=== PATIENT | female | born 1945 | race Caucasian/White ===

== ENCOUNTER → 2016-10-20 | Outpatient (CLI) | payer OTHER | LOC: FIMAGING 10:59 | PROVIDERS: ATTEND Internal Medicine | DX: Z12.31 Encounter for screening mammogram for malignant neoplasm of breast (principal) | CPT/HCPCS: G0202 ==

== ENCOUNTER 2017-06-03 05:44 | Inpatient (IN) | payer OTHER ==
[~2017-06-03 05:44] MED LIST: ROPIVACAINE 0.2% 80 MG, EPINEPHrine 0.2 MG, KETOROLAC TROMETHAMINE 30 MG in SYRINGE 0 ML IU ONE
[2017-06-03] MEDS ORDERED: TRANEXAMIC ACID 1,000 MG in NS (SYRINGE) 50 ML IV ONE (06:00)
[2017-06-03] MEDS ORDERED: BUPI/epINEPH/KETOROLAC IU ONE (06:00)
[2017-06-03] MEDS ORDERED: POVIDONE-IODINE 20 ML in SODIUM CL IRRIG SOLUTION 500 ML IRR ONE (06:00)
[2017-06-03] MEDS ORDERED: VANCOMYCIN PHARMACY TO DOSE MISC ONE (06:00)
[2017-06-03] MEDS ORDERED: VANCOMYCIN 1.25 GM in NS 250 ML IV ONE (06:00)
[2017-06-03] MEDS ORDERED: DEXAMETHASONE 4 MG/ML VIAL IVP ONE (06:01)
[2017-06-03] MEDS ORDERED: GABAPENTIN 300 MG CAP PO ONE (06:01)
[2017-06-03] MEDS ORDERED: FAMOTIDINE 20 MG TAB PO ONE (06:01)
[2017-06-03] MEDS ORDERED: ACETAMINOPHEN 325 MG TAB PO ONE (06:01)
[2017-06-03] MEDS ORDERED: LIDOCAINE 1% 2 ML INJ ID PRN (06:02)
[2017-06-03] MEDS ORDERED: LR 1,000 ML IV ONE (06:02)
[2017-06-03] MEDS ORDERED: ceFAZolin 1 GM/5 ML SYR ONE (06:32)
[2017-06-03] MEDS ORDERED: VANCOMYCIN 1 GM VIAL ONE (06:34)
--- NOTE | 2017-06-03 06:57 | PDANEPAE ---
ANE Past Medical History - Cardiovascular History Hx Hypertension: Yes Hx Arrhythmias: No Hx Chest Pain: No Hx Coronary Artery / Peripheral Vascular Disease: No Hx CHF / Valvular Disease: No Hx Palpitations: No - Pulmonary History Hx COPD: No Hx Asthma/Reactive Airway Disease: No Hx Recent Upper Respiratory Infection: No Hx Oxygen in Use at Home: No Hx Sleep Apnea: No Sleep Apnea Screening Result - Last Documented: Negative - Neurologic History Hx Cerebrovascular Accident: No Hx Seizures: No Hx Dementia: No - Endocrine History Hx Diabetes: No Endocrine History Comment: HYPOTHYROID - Renal History Hx Renal Disorders: No - Liver History Hx Hepatic Disorders: No - Neurological & Psychiatric Hx Hx Neurological and Psychiatric Disorders: No - Cancer History Hx Cancer: Yes Cancer History Comment: SKIN - Congenital Disorder History Hx Congenital Disorders: No - GI History Hx Gastrointestinal Disorders: Yes Gastrointestinal History Comment: CONSTIPATION. INFREQUENT ?IBS - Other Health History Other Health History: OSTEOARTHRITIS - Chronic Pain History Chronic Pain: Yes (KNEES) - Surgical History Prior Surgeries: RT TOTAL KNEE 08/04/2015. RT TOTAL HIP. TONSILLECTOMY. REMVL LIPOMA. BREAST BX ANE Review of Systems Review of Systems: - Exercise capacity METS (RN): 4 METS ANE Patient History - Allergies Allergies/Adverse Reactions: codeine Allergy (Unknown, Verified 01/23/15 15:32) VOMITTING amoxicillin Allergy (Verified 01/23/15 15:32) FACIAL SWELLING, BODY RASH Penicillins Allergy (Verified 05/01/17 13:32) Swelling/neck,face,throat - Home Medications Home Medications: Hydrochlorothiazide [HCTZ (*)] 25 mg PO DAILY 07/13/15 [Last Taken 06/02/17 08: 00] Lisinopril [Zestril 10 mg (*)] 10 mg PO DAILY 07/13/15 [Last Taken 06/02/17 22: 00] Ascorbic Acid [Vitamin C 500 mg (*)] 500 mg PO DAILY 05/01/17 [Last Taken ] Aspirin [Aspirin 81mg (*)] 81 mg PO DAILY 05/01/17 [Last Taken 05/27/17] Cholecalciferol Vit D3 [Vitamin D3 2000 units tab (OTC)] 2,000 units PO DAILY [Last Taken 05/27/17] Fluticasone Nasal [Flonase Nasal [place] (RX)] 1 sprays NASAL DAILY PRN 05/01/17 [ Last Taken 05/28/17] Herbals/Supplements -Info Only 1 ea PO DAILY 05/01/17 [Last Taken 05/27/17] Levothyroxine [Synthroid 75 mcg (*)] 75 mcg PO MOTUWETHFRSA@05/01/17 [Last Taken 06/03/17 04:00] Levothyroxine [Synthroid 75 mcg (*)] 112.5 mcg PO FARMER@05/01/17 [Last Taken 08:00] Multivitamins [Multivitamin (*)] 1 each PO DAILY 05/01/17 [Last Taken 05/27/17] [place]-3 Fatty Acids [Fish Oil 1000 mg (*)] 1,000 mg PO DAILY 05/01/17 [Last Taken 05/27/17] - Smoking Hx Smoking Status: Never smoked ANE Labs/Vital Signs - Vital Signs Height: 157.48 cm Weight: 86.183 kg ANE Physical Exam - Airway Neck exam: FROM Mallampati Score: Class 3 - Pulmonary Pulmonary: no respiratory distress - Cardiovascular Cardiovascular: regular rate and rhythym - ASA Status ASA Status: III ANE Anesthesia Plan Anesthesia Plan: spinal Regional Anesthesia: adductor canal FNB
[2017-06-03] MEDS ORDERED: MIDAZOLAM 2 MG/2 ML VIAL ONE (07:00)
[2017-06-03] MEDS ORDERED: DEXAMETHASONE 4 MG/ML VIAL ONE ×2 (07:01)
[2017-06-03] MEDS ORDERED: LIDOCAINE 2% 100 MG/5 ML SYR ONE (07:01)
[2017-06-03] MEDS ORDERED: PROPOFOL/EMULSION 500 MG/50 ML BOTTLE IV ONE (07:01)
[2017-06-03] MEDS ORDERED: METOCLOPRAMIDE 10 MG/2 ML VIAL ONE (07:01)
[2017-06-03] MEDS ORDERED: fentaNYL 100 MCG/2 ML INJ ONE (07:01)
--- NOTE | 2017-06-03 07:01 | PDHPUP ---
History & Physical Update H&P update statement: This history and physical update is based on an assessment of the patient which was completed after admission or registration (within 24 hours), but prior to the surgery/procedure. H&P update: H&P reviewed & patient examined
[2017-06-03] MEDS ORDERED: TRANEXAMIC ACID 3,000 MG/50 ML BAG IRR ONE (07:28)
[2017-06-03] MEDS ORDERED: BUPIVACAINE/EPI 0.5% 30 ML SDV ONE (08:19)
--- NOTE | 2017-06-03 09:08 | POSTOPPROG ---
Post Op Note Date of Operation: 06/03/17 Surgeon: Alexandre Rachel Support Services Manager: Christopher/Shanna Anesthesiologist: Dr. Mello Greenberg Post-op Diagnosis: Left knee severe degenerative arthritis Procedure: Left total knee arthroplasty Inf/Abcess present in the surg proc area at time of surgery?: No EBL: 50-100 (Adductor canal block in PACU)
[2017-06-03] MEDS ORDERED: FLUTICASONE NASAL 120 SPRAYS/16 GM MDI EACHNARE PRN (09:21)
[2017-06-03] MEDS ORDERED: CYCLOBENZAPRINE 10 MG TAB PO PRN (09:22)
[2017-06-03] MEDS ORDERED: DIPHENOXYLATE/ATROPINE LOMOTIL 1 TAB PO PRN (09:22)
[2017-06-03] MEDS ORDERED: NS 500 ML IV PRN (09:22)
[2017-06-03] MEDS ORDERED: PROMETHAZINE HCL 25 MG/ML INJ IVP PRN (09:22)
[2017-06-03] MEDS ORDERED: METOCLOPRAMIDE 10 MG/2 ML VIAL IVP PRN (09:22)
[2017-06-03] MEDS ORDERED: PROMETHAZINE HCL 25 MG SUPPR PR PRN (09:22)
[2017-06-03] MEDS ORDERED: KETOROLAC 30 MG/1 ML SDV IVP PRN (09:22)
[2017-06-03] MEDS ORDERED: TEMAZEPAM 15 MG CAP PO PRN (09:22)
[2017-06-03] MEDS ORDERED: ONDANSETRON DISINTEGRATING 4 MG TAB PO PRN (09:22)
[2017-06-03] MEDS ORDERED: MAGNESIUM HYDROXIDE 30 ML UDCUP PO PRN (09:22)
[2017-06-03] MEDS ORDERED: BISACODYL 10 MG SUPP PR PRN (09:22)
[2017-06-03] MEDS ORDERED: ONDANSETRON 4 MG/2 ML VIAL IVP PRN ×2 (09:22→09:42)
[2017-06-03] MEDS ORDERED: diphenhydrAMINE 25 MG CAP PO PRN (09:22)
[2017-06-03] MEDS ORDERED: LACTULOSE 20 GM/30 ML UDCUP PO PRN (09:22)
[2017-06-03] MEDS ORDERED: POLYETHYLENE GLYCOL 3350 17 GM PKT PO PRN (09:22)
[2017-06-03] MEDS ORDERED: HYDROCODONE/APAP 5/325 TAB PO PRN (09:24)
[2017-06-03] MEDS ORDERED: LR 1,000 ML IV SCH (09:30)
[2017-06-03] MEDS ORDERED: ALBUTEROL 3 ML DEYVIAL IH PRN (09:42)
[2017-06-03] MEDS ORDERED: NALOXONE HCL 0.4 MG/ML INJ IVP PRN (09:42)
[2017-06-03] MEDS ORDERED: fentaNYL 100 MCG/2 ML INJ IVP PRN (09:42)
--- NOTE | 2017-06-03 09:43 | POSTANESTH ---
Post Anesthetic Evaluation Cardiovascular Status: Similar to Pre-Op Cond Respiratory Status: Similar to Pre-op Cond. Level of Consciousness/Mental Status: Alert and Oriented Pain Control: Adequate, Prn Tx Ordered Nausea/Vomiting Control: Adequate, Prn Tx Ordered (adductor canal cath placed in rr. wiii re dose in am)
--- NOTE | 2017-06-03 09:54 | GOP ---
[f rep st] OPERATIVE REPORT DATE OF OPERATION: 06/03/2017 SURGEON: Alexandre Rachel MD PRINT TRAFFIC MANAGER: 1. Nitin White, PAC. 2. Gonzalo Otero [facility]. ANESTHESIA: A combination of Marcaine spinal, IV sedation, and adductor canal block. ANESTHESIOLOGIST: Mello Greenberg MD. PREOPERATIVE DIAGNOSIS: Left knee severe degenerative arthritis. POSTOPERATIVE DIAGNOSIS: Left knee severe degenerative arthritis. PROCEDURE PERFORMED: Left total knee arthroplasty, cemented, Amador and Nephew Journey II, posterior stabilized. FINDINGS: ESTIMATED BLOOD LOSS: Following deflation of the tourniquet was about 100 cc. The sponge and needle count were correct on 2 occasions. She was awakened from anesthesia, [facility], and taken to PACU in satisfacto ry condition. There were no recognized intraoperative complications. In the PACU, for additional po stoperative pain control, Dr. Greenberg performed an adductor canal block. Jose Juan White and Gonzalo Otero acted as surgical assistants. Their assistance was a medical necess ity for safe completion of the procedure. DESCRIPTION OF PROCEDURE: The patient was given preoperative IV vancomycin within 60 minutes of surg michaela. She also received IV tranexamic acid at a dose of 1000 mg. She was placed on the operating arianne m table, and given spinal anesthesia with Marcaine by Dr. Greenberg. She was then placed supine and g iven IV sedation. A Nielsen catheter was not used. She wore a MIKAYLA stocking and SCD on the nonoperativ e leg. A bolster was placed under her left hip to prevent excessive external rotation of the leg. H er left lower extremity was prepped with ChloraPrep from the upper thigh tourniquet to the tips of th e toes. It was draped free using sterile sheets, stockinette, and Ioban plastic adhesive drape. The lower leg was wrapped with compressive Coban. The leg was exsanguinated with elevation and a 6-inch compressive wrap, and the pneumatic tourniquet was inflated to 300 mmHg. The World Health Organization time-out was performed to verify the correct patient identity and the c orrect surgical side and site. The Payette time-out was also performed. The AR [employer] leg holding device was sterilely attached to the operating room table and used throughout the procedure to help position the knee. A straight midline incision made centered on the patella. Subcutaneous tissues were sharply divided, and hemostasis was obtained using electrocautery. A media l subcutaneous flap was developed, and the capsule and synovium were opened in a medial parapatellar fashion. Extensive degenerative changes were present in the medial compartment and in the patellofem oral joint. Her medial capsule and periosteum were elevated off the rim of the medial tibial plateau all the way around to the posteromedial corner. Her medial collateral ligament was released enough to balance the medial side of the knee and adjust for the varus deformity. In order to improve exposure, her patella was prepared first. The original thickness of the patella was measured. Peripheral osteophytes removed. I cut a flat surface on the back of the patella. She was sized for a 35 mm round resurfacing component. I removed enough bone from the patella, such leeanne t the remaining bone plus the thickness of the patellar component recreated the original thickness of the patella. The composite patellar thickness was 21 mm. The intramedullary alignment guide system was used to set up the distal femoral cut. The distal femu r was cut in 6 degrees of valgus. Because of a 5-degree to 10-degree preoperative flexion contractur e, I made a +2 mm cut on the distal femur. The sizing jig was used to determine proper femoral sizin g. I shifted the jig anteriorly 2 mm in order to accommodate a size 3 femoral component without notc prince the anterior cortex. The 5-in-1 cutting block was applied, and the anterior and posterior condy lar cuts and chamfer cuts were made. The final jig was used to remove the central portion of the dis winnie femur to accommodate the posterior stabilized femoral component. I was careful to determine prop er rotation by referencing off Whitesides line and other bony landmarks. Each cut was checked for ac curacy before and after it was made. The femur was sized for a size 3 posterior stabilized component . Next, the tibia was prepared. The proximal tibial cut was made using the extramedullary alignment gu brent system. The cut was made in a few degrees of posterior slope. I was careful to achieve proper v arus/valgus alignment and proper rotation. The posterior compartment was cleared of meniscal remnant s. Osteophytes were removed from the back of her femoral condyles. I checked the flexion extension gaps, and they were equal, balanced, and rectangular. The tibia was sized for a size 3 component. W ith the trial components in place, I selected a 9 mm polyethylene posterior stabilized tibial insert. The knee came to full extension and flexed to 120 degrees. There was no overstuffing in flexion. Her collateral ligaments were stable and balanced in 90 degrees of flexion and full extension. The t rial patellar button was applied, and patellar tracking was excellent without any digital pressure. 40 mL of the joint anesthetic cocktail were injected into the posterior capsule, the periarticular st ructures, the quadriceps muscle and tendon areas, and the subcutaneous tissues along the skin edges. The surfaces were prepared for cementing. They were carefully cleaned with the pulsating lavage and thoroughly dried. The CarboJet device was used to blow dry the cancellous surfaces. A double batch of high-viscosity methylmethacrylate cement with 2 g of powdered vancomycin added was mixed. While i t was still in a doughy state, all 3 components were cemented in place. Excess cement was removed be fore it hardened. The 9 mm tibial trial insert was re-tried and was the proper thickness. The actual component was ins erted and locked into place. The knee was thoroughly irrigated 1 final time with a dilute Betadine s olution. The tourniquet was deflated, and the total tourniquet time was 47 minutes. The vastus medialis portion of the extensor mechanism was repaired with several interrupted figure-of -eight #2 FiberWire sutures. The capsule and synovium were closed first with multiple interrupted fi [id number] PDS sutures, followed by a running #2 barbed Ethicon Stratafix PDO suture. Subcutane ous tissues were closed with a running 0 barbed Ethicon Stratafix Monoderm suture. The skin was clos ed with running 3-0 barbed Ethicon Stratafix Monoderm subcuticular suture. The skin was sealed with half-inch Steri-Strips. The wound was covered with a large Mepilex waterproof dressing and a 6-inch compressive wrap. A long-leg MIKAYLA stocking and SCD were applied, followed by the cooling device. The Mepilex sacral dressing was applied. I used a size 3 cemented Amador and Nephew Oxinium posterior stabilized femoral component, a size 3 ce mented tibial base plate, a 9 mm posterior stabilized tibial insert, and a 35 mm cemented round all-p olyethylene resurfacing patellar component. /[id number]/MODL
[2017-06-03] MEDS ORDERED: ONDANSETRON 4 MG/2 ML VIAL ONE (10:00)
[2017-06-03] MEDS: ACETAMINOPHEN 325 MG TAB PO SCH ×3 (14:09→23:13)
[2017-06-03] MEDS: TRANEXAMIC ACID 650 MG TAB PO SCH ×2 (15:10→21:20)
[2017-06-03] MEDS: SENNOSIDES/DOCUSATE SODIUM TAB PO SCH (21:21)
[2017-06-03] MEDS: FAMOTIDINE 20 MG TAB PO SCH (21:21)
[2017-06-03] MEDS: ASPIRIN 325 MG TAB PO SCH (21:37)
[2017-06-04] MEDS: traMADol 50 MG TAB PO PRN ×3 (03:07→21:33)
[2017-06-04] MEDS ORDERED: VANCOMYCIN 1.5 GM in NS 250 ML IV ONE (06:30)
--- NOTE | 2017-06-04 07:29 | SOAPPROG ---
SOAP Progress Note Assessment/Plan: Assessment: Awake and alert. Afebrile. Vital signs stable. Mild pain. She has been walking in her room. H&H are good. Postop films look good. Plan: Continue physical therapy today. Discharge tomorrow. 06/04/17 07:28 Objective: Vital Signs Temp Pulse Resp BP Pulse Ox 36.2 C 66 16 134/69 H 95 06/04/17 03:03 06/04/17 03:03 06/04/17 03:03 06/04/17 03:03 06/04/17 03:03 Laboratory Results 06/04/17 05:00 06/03/17 06/04/17 06/05/17 05:59 05:59 05:59 Intake Total 2820 Output Total 500 Balance 2320 ICD10 Worksheet Patient Problems: Problems Problem Status Onset Osteoarthritis of left knee Acute Osteoarthritis of right knee Acute Primary osteoarthritis of right hip Acute
[2017-06-04] MEDS: HYDROCHLOROTHIAZIDE 25 MG TAB PO SCH (08:43)
[2017-06-04] MEDS: SENNOSIDES/DOCUSATE SODIUM TAB PO SCH ×2 (08:43→21:33)
--- NOTE | 2017-06-04 08:43 | SOAPPROG ---
SOAP Progress Note Assessment/Plan: Assessment:Good pain management. Plan:Bupivicaine 17 ml 0.5 % with epi given through Adductor Canal catheter without complication. - Aspiration/ - Test dose. Pulse ox 96-98 % with no change in heart rate. 06/04/17 08:41 Subjective: pt doing well. Objective: Vital Signs Temp Pulse Resp BP Pulse Ox 36.6 C 66 16 124/67 H 95 06/04/17 07:57 06/04/17 07:57 06/04/17 07:57 06/04/17 07:57 06/04/17 07:57 Laboratory Results 06/04/17 05:00 06/03/17 06/04/17 06/05/17 05:59 05:59 05:59 Intake Total 2820 Output Total 500 Balance 2320 ICD10 Worksheet Patient Problems: Problems Problem Status Onset Osteoarthritis of left knee Acute Osteoarthritis of right knee Acute Primary osteoarthritis of right hip Acute
[2017-06-04] MEDS: ASPIRIN 325 MG TAB PO SCH (08:44)
[2017-06-04] MEDS: LEVOTHYROXINE 75 MCG TAB PO SCH (08:45)
[2017-06-04] MEDS: FAMOTIDINE 20 MG TAB PO SCH ×2 (08:45→21:33)
[2017-06-04] MEDS: LISINOPRIL 10 MG TAB PO SCH (08:45)
[2017-06-04] MEDS: TRANEXAMIC ACID 650 MG TAB PO SCH (08:46)
[2017-06-04] MEDS: ACETAMINOPHEN 325 MG TAB PO SCH ×4 (08:47→23:44)
--- NOTE | 2017-06-04 09:58 | ASMTCMCOM ---
CM Note CM Note Notes: Chart reviewed for discharge planning purposes. Patient address and phone number confirmed. [facility] PT for needs post discharge until she is seen in follow up with ortho. Patient requests PT Naomie Chun from [facility]. Likely to dc tomorrow. Plan: Home with [facility] Date Signed: 06/04/2017 09:57 AM Electronically Signed By:Joy Vee RN
[2017-06-05] MEDS: ACETAMINOPHEN 325 MG TAB PO SCH ×2 (06:17→11:56)
[2017-06-05] MEDS: LEVOTHYROXINE 75 MCG TAB PO SCH (06:17)
[2017-06-05] MEDS: traMADol 50 MG TAB PO PRN ×2 (06:45→14:00)
--- NOTE | 2017-06-05 07:18 | SOAPPROG ---
SOAP Progress Note Assessment/Plan: Assessment: Awake and alert. Afebrile. Vital signs stable. Mild pain. She has been walking in her room. H&H are good. Postop films look good. Plan: Continue physical therapy today. Discharge tomorrow. 06/04/17 07:28 06/05/17 07:17 Moderate pain today. Good progress with physical therapy. No new problems. Plan: Discharge today Objective: Vital Signs Temp Pulse Resp BP Pulse Ox 36.6 C 70 16 146/70 H 93 06/05/17 00:00 06/05/17 00:00 06/05/17 00:00 06/05/17 00:00 06/05/17 00:00 Laboratory Results 06/05/17 05:07 06/04/17 06/05/17 06/06/17 05:59 05:59 05:59 Intake Total 2820 550 Output Total 500 550 600 Balance 2320 0 -600 ICD10 Worksheet Patient Problems: Problems Problem Status Onset Osteoarthritis of left knee Acute Osteoarthritis of right knee Acute Primary osteoarthritis of right hip Acute
--- NOTE | 2017-06-05 08:03 | GDS ---
[f rep st] DISCHARGE SUMMARY ADMISSION DIAGNOSIS: Left knee severe arthritis. DISCHARGE DIAGNOSIS: Left knee severe arthritis. OPERATION PERFORMED: June 03, 2017, a left total knee arthroplasty. POSTOPERATIVE COMPLICATIONS: None. CONDITION ON DISCHARGE: Improved. DESCRIPTION OF HOSPITAL COURSE: The patient was admitted to the hospital on the morning of surgery. Her admission CBC, electrolytes, BUN, and creatinine were all normal. The same day, under a combina tion of Marcaine spinal, IV sedation, and adductor canal block, she underwent a left total knee arthr oplasty. Postoperatively, she was treated with multimodal DVT prophylaxis, including aspirin. On e first postoperative day, her hemoglobin and hematocrit were 10.7 and 30.5. She was seen by Physica l Therapy and made good progress with ambulation and stairs. On the morning of the first postoperati ve day, Dr. Greenberg gave her a second dose of Marcaine through her adductor canal catheter, and then the catheter was removed. By the time of discharge, she was afebrile, and she was independent walki ng with a walker. DISPOSITION: She is discharged to her home. Her daughter will be staying with her and caring for he r. Continue aspirin 325 mg p.o. daily for 21 days. Continue Celebrex 200 mg daily for 21 days. She has prescription for tramadol for pain control. She will have home physical therapy. I will see kishan r back in the office on June 18, 2017. If there any problems, she is to call me at the office. /[id number]/MODL
--- NOTE | 2017-06-05 08:33 | PDIAF ---
- Diagnosis Diagnosis: L knee OA Code Status: Full Code - Medication Management Discharge Medications: Medications to Continue on Transfer Hydrochlorothiazide [HCTZ (*)] 25 mg PO DAILY 07/13/15 [Last Taken 06/02/17 08: 00] Lisinopril [Zestril 10 mg (*)] 10 mg PO DAILY 07/13/15 [Last Taken 06/02/17 22: 00] Ascorbic Acid [Vitamin C 500 mg (*)] 500 mg PO DAILY 05/01/17 [Last Taken ] Cholecalciferol Vit D3 [Vitamin D3 2000 units tab (OTC)] 2,000 units PO DAILY [Last Taken 05/27/17] Fluticasone Nasal [Flonase Nasal [place]] 1 sprays NASAL DAILY PRN 05/01/17 [Last Taken 05/28/17] Herbals/Supplements -Info Only 1 ea PO DAILY 05/01/17 [Last Taken 05/27/17] Levothyroxine [Synthroid 75 mcg (*)] 75 mcg PO MOTUWETHFRSA@05/01/17 [Last Taken 06/03/17 04:00] Levothyroxine [Synthroid 75 mcg (*)] 112.5 mcg PO FARMER@05/01/17 [Last Taken 08:00] Multivitamins [Multivitamin (*)] 1 each PO DAILY 05/01/17 [Last Taken 05/27/17] [place]-3 Fatty Acids [Fish Oil 1000 mg (*)] 1,000 mg PO DAILY 05/01/17 [Last Taken 05/27/17] Acetaminophen [Tylenol 325mg (*)] 650 mg PO Q6HRS tab 06/05/17 [Last Taken Unknown] Aspirin [Aspirin 325 mg (*)] 325 mg PO DAILY tab 06/05/17 [Last Taken Unknown] Hydrocodone/APAP 5/325 [[place] 5/325 (*)] 1 - 2 tab PO Q4HRS PRN tab 06/05/17 [ Last Taken Unknown] Ondansetron Odt [Zofran Odt 4 mg (*)] 4 mg PO Q4HRS PRN tab 06/05/17 [Last Taken Unknown] Sennosides/Docusate Sodium [Senokot-S] 1 - 2 tab PO BID tab 06/05/17 [Last Taken Unknown] celeCOXIB [Celebrex (*)] 200 mg PO DAILY cap 06/05/17 [Last Taken Unknown] traMADol [Ultram 50 mg (*)] 50 mg PO Q6HRS PRN tab 06/05/17 [Last Taken Unknown ] Discharge Medications: Refer to the Discharge Home Medication list for PRN reason. - Orders Services needed: Home Care, Physical Therapy Home Care Face to Face: I certify that this patient was under my care and that I had the required [id number] encounter meeting the encounter requirements on the discharge day. My findings support the fact that the patient is homebound as defined in Home Care Face to Face Continued: CMS Chapter 7 Medicare Benefits Manual 30.1.1 , The condition of the patient is such that there exists a normal inability to leave home and consequently, leaving home would require a considerable and taxing effort. Diet Recommendation: no restrictions on diet Diet Texture: Regular Texture Diet Feliciano Stockings Discontinue Date: 1 week Wound Care Instructions: keep clean and dry. You may shower. Activity/Weight Bearing Restrictions: as tolerated. Equipment: Zero knee while in bed as tolerated. - Follow Up Care Current Providers and Referrals: Geovanna Keys MD [Primary Care Provider] - Alexandre Rachel MD [Medical Doctor] - follow up as scheduled (in 10-12 days)
--- NOTE | 2017-06-05 09:51 | PDMN ---
Medical Necessity Medical necessity: change to IP; los>2mn for continued PT in acute setting s/p L TKA; lives alone in home w/stairs; balance, and activity tolerance issues, requiring contact guard assist for transfers; per order and progress & PT note
[2017-06-05] MEDS: LISINOPRIL 10 MG TAB PO SCH (11:53)
[2017-06-05] MEDS: HYDROCHLOROTHIAZIDE 25 MG TAB PO SCH (11:53)
[2017-06-05] MEDS: ASPIRIN 325 MG TAB PO SCH (11:54)
[2017-06-05] MEDS: FAMOTIDINE 20 MG TAB PO SCH (11:54)
[2017-06-05 12:18] VITALS: BP 156/82
[2017-06-05] MEDS: SENNOSIDES/DOCUSATE SODIUM TAB PO SCH (12:39)
--- NOTE | 2017-06-05 14:03 | ASMTCMCOM ---
CM Note CM Note Notes: Pt medically stable for d/c with [facility] PT. Orders to be obtained via [employer]. Date Signed: 06/05/2017 02:02 PM Electronically Signed By:ANNA Puri
--- NOTE | 2017-06-05 16:13 | ASDISCHSUM ---
Discharge Information Plan Status:Home with Home Health Medically Cleared to Leave: Discharge Date:06/05/2017 02:09 PM CM D/C Disposition:Home Health Service ADT D/C Disposition:Home Health Service Projected Discharge Date:06/05/2017 11:00 AM Transportation at D/C: Discharge Delay Reason: Follow-Up Date:06/05/2017 11:00 AM Discharge Slot: Final Diagnosis: Placement Information Referral Type:*Home Health Care Services Referral ID:[id number] Provider Name:[facility] Address 1:[address] [address] Address 2: City:[place] Selection Factors: State:[place] Patient Contact Information Contact Name:PRO Relationship:Daughter Address: City: [facility] Phone: State/Zip Code: Email: Financial Information Financial Class:Medicare Primary Plan Desc:MEDICARE INPATIENT Primary Plan Number:[id number] [facility] Secondary Plan Number:[id number] Assessment Information CM Door Fitter Assessment CJR Did you go to joint Answers: No (why?) Notes: Watched online video class? CM Note CM Note Notes: Crystal lives alone, but she is anticipating discharging home post-surgery with physical therapy services from [facility]. After her first knee surgery, she went to a fci facility and said it was a poor experience. She tolerated her pain well, so this time around she feels a fci facility is not necessary. Crystal's daughter and friend will be staying with her for the first few nights once she returns home. She has a walker and has seen the online joint class video. Dr. Long' office is aware that Crystal would like to discharge home with physical therapy home care services through [facility]. If available, Crystal has requested Naomie Aleman. She has worked with Naomie for physical therapy twice in the past for previous knee and hip surgeries. I informed Crystal that the case management team will do their best to make these accommodations. I contacted [facility] Intake, [phone], who confirmed that Naomie Aleman should be available and they will make note of Carols' surgery date. Date Signed: 04/22/2017 12:22 PM Electronically Signed By:Megan Pan [facility] CM Progress Note CM Note CM Note Notes: Chart reviewed for discharge planning purposes. Patient address and phone number confirmed. [facility] PT for needs post discharge until she is seen in follow up with ortho. Patient requests PT Naomie Adiel from [facility]. Likely to dc tomorrow. Plan: Home with [facility] Date Signed: 06/04/2017 09:57 AM Electronically Signed By:Joy Vee RN [facility] CM Progress Note CM Note CM Note Notes: Pt medically stable for d/c with [facility] PT. Orders to be obtained via [employer]. Date Signed: 06/05/2017 02:02 PM Electronically Signed By:ANNA Puri Intervention Information Intervention Type:TOD-Signed Date of Service:06/04/2017 10:34 AM Patient Type:Observation Staff Member:Megan Pan Hours: Discipline: Severity: Comment: Intervention Type:*Occurence 72 Date of Service:06/05/2017 03:17 PM Patient Type:Inpatient Staff Member:ELHAM Brambila Susan Hours: Discipline: Severity: Comment:
[2017-06-07] MEDS ORDERED: LEVOTHYROXINE 75 MCG TAB PO SCH (06:00)
== END 2017-06-05 14:09 | disposition home health service (06) | DRG 470 ==
LOC: INTOOBSV 05:44 → F3N 05:44 → OBSVTOIN 05:44 → F3N 10:43
PROVIDERS: ADMIT Orthopaedic Surgery; ATTEND Orthopaedic Surgery
PROC: 0SRD069 Replacement of Left Knee Joint with Oxidized Zirconium on Polyethylene Synthetic Substitute, Cemented, Open Approach (ICD-10-PCS; principal; 2017-06-03 07:15)
DX: M17.12 Unilateral primary osteoarthritis, left knee (principal); Z96.643 Presence of artificial hip joint, bilateral; Z96.651 Presence of right artificial knee joint
CPT/HCPCS: 97110-GP; 97116-GP; 97161-GP; 97165-GO; 97530-GP; C1713; G8978-GP-CJ; G8979-GP-CI; G8980-GP-CI; G8987-GO-CI; G8988-GO-CI; G8989-GO-CI; J0171; J1100; J1885; J2001; J2250; J2405; J2550; J2704; J2765; J3010; J3370

== ENCOUNTER 2017-06-20 11:07 | Inpatient (IN) | payer OTHER ==
[2017-06-20] MEDS ORDERED: NS 1,000 ML IV ONE ×2 (11:13→13:38)
--- NOTE | 2017-06-20 11:13 | EDPHY ---
H & P Time Seen by Provider: 06/20/17 11:10 HPI/ROS: HPI: This is a 72-year-old female who presents with Chief Complaint: Left lower quadrant pain Location: Left lower quadrant Quality: Sharp, constant pain Duration: 1 week Signs and Symptoms: no fever, no nausea, no vomiting, no hematemesis, no blood in stool, + abdominal bloating, + diarrhea, no back pain, no urinary symptoms, no vaginal bleeding/discharge, no indigestion, no chest pain, no shortness of breath Timing: Gradually worsening Severity: 11/18 Context: Patient reports that she had knee replacement surgery [address] Rachel on the left, taking tramadol and Tylenol as needed for pain. She presents via EMS accompanied by her daughter for 1 week history of left lower quadrant pain. Pain is described as sharp, constant since waking up this morning. It is nonradiating in nature. Pain is worsened with touching the area , movement. She reports that yesterday she had 3 hard small bowel movement. This morning she had 3 small loose bowel movements. She is passing flatus. Has a history of bowel obstruction, tortuous colon, diverticulosis and had a recent colonoscopy. Denies any blood in her stool/hematemesis/nausea/vomiting. Very poor appetite the last 2 days. Drank only 600 mL of water yesterday. Drank water at 4:00 a.m. this morning. Denies any urinary symptoms. EMS gave patient 50 mcg of fentanyl without improvement in pain. Modifying Factors: See above Comment: ROS: see HPI Constitutional: No fever, no chills, no weight loss Eyes: No blurred vision Respiratory: No shortness of breath, no cough Cardiovascular: No chest pain, no palpitations Gastrointestinal: No nausea, no vomiting, no diarrhea, no hematemesis, no blood in stool Genitourinary: No dysuria, no blood in urine Extremities: No myalgias, no edema Neurologic: No weakness, no numbness Skin: No rashes, no petechiae Hematologic: No bruising, no bleeding MEDICAL/SURGICAL/SOCIAL HISTORY: Medical/surgical history: hypothyroid, htn, tonsillectomy, groin lipoma, breast biopsy, left knee surgery Social history: Retired. Strong family support. Family history noncontributory. CONSTITUTIONAL: Extremely pleasant nontoxic-appearing elderly white female, awake and alert, moderate distress HEENT: Atraumatic and normocephalic, PERRL, EOMI. Nares patent; no rhinorrhea; no nasal mucosal edema. Tympanic membranes clear. Oropharynx clear, no exudate and moist pink mucosa. Airway patent. No lymphadenopathy. No meningismus. Cardiovascular: Normal S1/S2, regular rate, regular rhythm, without murmur rub or gallop. PULMONARY/CHEST: Symmetrical and nontender. Clear to auscultation bilaterally. Good air movement. No accessory muscle usage. ABDOMEN: Soft, nondistended, severe suprapubic and left lower quadrant tenderness, no rebound, + guarding, + peritoneal signs, no masses or organomegaly. No CVAT. EXTREMITIES: 2/2 pulses, strength 5/5, no deformities, no clubbing, no cyanosis or edema. NEUROLOGICAL: no focal neuro deficits. GCS 15. SKIN: Warm and dry, no erythema. no rash. Good capillary refill. Source: Patient, Family (Daughter), RN/MD, EMS, Old records Exam Limitations: No limitations - Medical/Surgical History Hx Asthma: No Hx Chronic Respiratory Disease: No Hx Diabetes: No Hx Cardiac Disease: No Hx Renal Disease: No Hx Cirrhosis: No Hx Alcoholism: No Hx HIV/AIDS: No Hx Splenectomy or Spleen Trauma: No Other PMH: hypothyroid, htn, tonsilectomy, groin lipoma, breast biopsy - Social History Smoking Status: Never smoked Constitutional: Initial Vital Signs Temperature (C) 36.7 C 06/20/17 11:07 Heart Rate 98 06/20/17 11:07 Respiratory Rate 20 06/20/17 11:07 Blood Pressure 101/63 06/20/17 11:07 O2 Sat (%) 97 06/20/17 11:07 O2 Delivery Mode Nasal Cannula O2 (L/minute) 3 Allergies/Adverse Reactions: codeine Allergy (Unknown, Verified 06/20/17 11:26) VOMITTING amoxicillin Allergy (Verified 06/20/17 11:26) FACIAL SWELLING, BODY RASH Penicillins Allergy (Verified 06/20/17 11:26) Swelling/neck,face,throat Home Medications: Medication Instructions Recorded Hydrochlorothiazide [HCTZ (*)] 25 mg PO DAILY 07/13/15 Lisinopril [Zestril 10 mg (*)] 10 mg PO DAILY 07/13/15 Ascorbic Acid [Vitamin C 500 mg 500 mg PO DAILY 05/01/17 (*)] Cholecalciferol Vit D3 [Vitamin D3 2,000 units PO DAILY 05/01/17 2000 units tab (OTC)] Fluticasone Nasal [Flonase Nasal 1 sprays NASAL DAILY PRN 05/01/17 [place]] Herbals/Supplements -Info Only 1 ea PO DAILY 05/01/17 Levothyroxine [Synthroid 75 mcg 75 mcg PO MOTUWETHFRSA@05/01/17 (*)] Levothyroxine [Synthroid 75 mcg 112.5 mcg PO FARMER@05/01/17 (*)] Multivitamins [Multivitamin (*)] 1 each PO DAILY 05/01/17 [place]-3 Fatty Acids [Fish Oil 1000 1,000 mg PO DAILY 05/01/17 mg (*)] Acetaminophen [Tylenol 325mg (*)] 650 mg PO Q6HRS tab 06/05/17 Aspirin [Aspirin 325 mg (*)] 325 mg PO DAILY tab 06/05/17 Hydrocodone/APAP 5/325 [[place] 1 - 2 tab PO Q4HRS PRN tab 06/05/17 5/325 (*)] Ondansetron Odt [Zofran Odt 4 mg 4 mg PO Q4HRS PRN tab 06/05/17 (*)] Sennosides/Docusate Sodium 1 - 2 tab PO BID tab 06/05/17 [Senokot-S] celeCOXIB [Celebrex (*)] 200 mg PO DAILY cap 06/05/17 traMADol [Ultram 50 mg (*)] 50 mg PO Q6HRS PRN tab 06/05/17 Medical Decision Making - Diagnostics Imaging Results: Imaging Impressions Abdomen/Pelvis CT 06/20/17 11:13 Impression: 1. Pneumoperitoneum, most likely a result of a microperforation associated with the inflamed sigmoid colon within the setting of diverticula. 2. Small-volume simple-appearing ascites. 3. Small hiatal hernia. 4. Status post right hip arthroplasty. Findings were discussed with Romina Rob PA-C at 13:06, on 06/20/2017. ED Course/Re-evaluation: Labs, urinalysis, CT abdomen and pelvis scan to rule out diverticulitis, obstruction, perforation. 1125: Patient given 1 L normal saline and IV Dilaudid 1 mg 1139: Notified by nursing that patient is "scared" of receiving Dilaudid. IV 50 mcg of fentanyl ordered as tolerated prior by EMS. 1213: Labs reviewed. BUN and creatinine above baseline with low-sodium consistent with acute kidney injury. IV Invanz and another 1 L of normal saline at 250 cc/hr ordered. 1305: Called by radiologist who advised that CT abdomen and pelvis scan shows sigmoid diverticulitis with micro perforation and pneumoperitoneum. 1310: Reassessed patient who reports that she still in pain. IV fentanyl 50 mcg ordered. 1315: ED decision to consult for admission. Spoke with General surgery, Dr. Bolivar, who kindly agrees to review the films, consult on this patient and provide further care. I suspect that patient will require surgery. This patient was seen under the supervision of my secondary supervising physician. I evaluated care for this patient independently. Discussed this patient with Dr. Ramirez who did not see the patient. Differential Diagnosis: Abdominal pain including but not limited to appendicitis, cholecystitis, gastritis and urinary tract infection. - Data Points Laboratory Results: Laboratory Results 06/20/17 11:27 06/20/17 11:27 06/20/17 06/20/17 11:27 11:27 WBC 3.44 10^3/uL L 10^3/uL (3.80-9.50) RBC 4.29 10^6/uL 10^6/uL (4.18-5.33) Hgb 12.8 g/dL g/dL (12.6-16.3) Hct 36.7 % L % (38.0-47.0) MCV 85.5 fL fL (81.5-99.8) MCH 29.8 pg pg (27.9-34.1) MCHC 34.9 g/dL g/dL (32.4-36.7) RDW 13.0 % % (11.5-15.2) Plt Count 461 10^3/uL H 10^3/uL (150-400) MPV 10.2 fL fL (8.7-11.7) Neut % (Auto) Not Reported Lymph % (Auto) Not Reported [place] % (Auto) Not Reported Eos % (Auto) Not Reported Baso % (Auto) Not Reported Nucleat RBC Rel Count Not Reported Absolute Neuts (auto) Not Reported Absolute Lymphs (auto) Not Reported Absolute Monos (auto) Not Reported Absolute Eos (auto) Not Reported Absolute Basos (auto) Not Reported Absolute Nucleated RBC Not Reported Immature Gran % Not Reported Seg Neutrophils % 48.0 % % Band Neutrophils % 31.0 % % Lymphocytes % 13.0 % % Monocytes % 7.0 % % Eosinophils % 0 % % Basophils % 0 % % Metamyelocytes % 0 % % Myelocytes % 0 % % Promyelocytes % 0 % % Blast Cells % 0 % % Immature Gran # Not Reported Absolute Seg Neuts 1.65 10^/uL L 10^/uL (1.70-6.50) Absolute Band Neuts 1.07 10^3/uL H 10^3/uL (0.00-0.70) Absolute Lymphocytes 0.45 10^3/uL L 10^3/uL (1.00-3.00) Absolute Monocytes 0.24 10^3/uL L 10^3/uL (0.30-0.80) Absolute Eosinophils 0.00 10^3/uL L 10^3/uL (0.03-0.40) Absolute Basophils 0.00 10^3/uL L 10^3/uL (0.02-0.10) Absolute Metamyelocyte 0.00 10^3/mL 10^3/mL (0.00-0.00) Absolute Myelocytes 0.00 10^3/mL 10^3/mL (0.00-0.00) Absolute Promyelocytes 0.00 10^3/uL 10^3/uL (0.00-0.00) Absolute Plasma Cells 0.03 10^3/uL H 10^3/uL (0.00-0.00) RBC/WBC/PLT Morphology NORMAL (NORMAL) Absolute Blast Cells 0.00 10^3/uL 10^3/uL (0.00-0.00) Plasma Cells % 1.0 % % Platelet Estimate INCREASED H (ADEQ) Smear Review By Pending Sodium 130 mEq/L L mEq/L (135-145) Potassium 3.6 mEq/L mEq/L (3.5-5.2) Chloride 91 mEq/L L mEq/L (97-110) Carbon Dioxide 19 mEq/l L mEq/l (22-31) Anion Gap 20 mEq/L H mEq/L (8-16) BUN 35 mg/dL H mg/dL (7-23) Creatinine 1.7 mg/dL H mg/dL (0.6-1.0) Estimated GFR 29 Glucose 128 mg/dL H mg/dL (70-100) Calcium 8.5 mg/dL mg/dL (8.5-10.4) Total Bilirubin 2.6 mg/dL H mg/dL (0.1-1.4) Conjugated Bilirubin 1.3 mg/dL H mg/dL (0.0-0.5) Unconjugated Bilirubin 1.3 mg/dL H mg/dL (0.0-1.1) AST 20 IU/L IU/L (14-46) ALT 36 IU/L IU/L (9-52) Alkaline Phosphatase 146 IU/L H IU/L (38-126) Total Protein 6.8 g/dL g/dL (6.3-8.2) Albumin 3.4 g/dL L g/dL (3.5-5.0) Medications Given: Discontinued Medications Ertapenem (Invanz) 1 gm IV EDNOW ONE PRN Reason: Protocol Stop: 06/20/17 13:20 Last Admin: 06/20/17 13:28 Dose: 1 gm Fentanyl (Sublimaze) 50 mcg IVP EDNOW ONE Stop: 06/20/17 11:40 Last Admin: 06/20/17 11:42 Dose: 50 mcg Fentanyl (Sublimaze) 50 mcg IVP EDNOW ONE Stop: 06/20/17 13:13 Last Admin: 06/20/17 13:15 Dose: 50 mcg Hydromorphone HCl (Dilaudid) 1 mg IVP EDNOW ONE Stop: 06/20/17 11:19 Last Admin: 06/20/17 11:42 Dose: Not Given Sodium Chloride (Ns) 1,000 mls @ 0 mls/hr IV EDNOW ONE; Wide Open PRN Reason: Protocol Stop: 06/20/17 11:14 Last Admin: 06/20/17 11:37 Dose: 1,000 mls Departure - Departure Disposition: [facility] Acute Clinical Impression: Acute kidney injury, Dehydration with hyponatremia, Perforation of sigmoid colon due to diverticulitis, Pneumoperitoneum Condition: Fair
[2017-06-20] MEDS ORDERED: HYDROmorphONE/DILAUDID 2 MG/ML INJ IVP ONE (11:18)
[2017-06-20] MEDS ORDERED: fentaNYL 100 MCG/2 ML INJ IVP ONE ×3 (11:39→14:51)
[2017-06-20 11:43] LABS: PLATELET COUNT 461 10^3/uL (150-400)
[2017-06-20] MEDS ORDERED: IOPAMIDOL (ISOVUE-300) 100 ML BTL ONE (11:56)
[2017-06-20] MEDS ORDERED: ERTAPENEM 1 GM VIAL IV ONE (13:19)
--- NOTE | 2017-06-20 14:25 | PDGENHP ---
History and Physical - Chief Complaint Left lower quadrant abdominal pain - History of Present Illness Crystal is a 72-year-old patient underwent left knee total arthroplasty June [address] Rachel. She presents with 1 week of worsening abdominal pain to the point of peritonitis today. Evaluation of her symptoms in the emergency room showed leukopenia and CT scan consistent with perforated diverticulitis. She has been given Invanz in the emergency room. Her metabolic derangements do not necessitate resuscitation prior to surgery but may warrant further investigation through Hospital Medicine. Her recent orthopedic surgery may necessitate prolonged antibiotic use and Infectious Disease consultation will be obtained postoperatively. She is nauseated she has had a subjective fever she had 1 episode of loose stool earlier today but has been anorexic for the last 2 days. Pain is exacerbated by movement. Pain is 10 out of out of 10 at the worst. Medication has slightly improved her pain. History Information - Allergies/Home Medication List Allergies/Adverse Reactions: codeine Allergy (Unknown, Verified 06/20/17 11:26) VOMITTING amoxicillin Allergy (Verified 06/20/17 11:26) FACIAL SWELLING, BODY RASH Penicillins Allergy (Verified 06/20/17 11:26) Swelling/neck,face,throat Home Medications: Hydrochlorothiazide [HCTZ (*)] 25 mg PO DAILY 07/13/15 [Last Taken 06/19/17] Lisinopril [Zestril 10 mg (*)] 10 mg PO DAILY 07/13/15 [Last Taken 06/19/17] Levothyroxine [Synthroid 75 mcg (*)] 112.5 mcg PO FARMER@06 05/01/17 [Last Taken 08:00] Ondansetron Odt [Zofran Odt 4 mg (*)] 4 mg PO Q6H PRN 06/20/17 [Last Taken Unknown] I have personally reviewed and updated: surgical history - Past Medical History migraines Additional medical history: Osteoarthritis, hypothyroidism, hypertension, hypercholesterolemia - Surgical History Additional surgical history: Right total hip arthroplasty, right total knee arthroplasty, recent left knee arthroplasty - Family History Positive for: non-pertinent - Social History Smoking Status: Never smoked Alcohol Use: Rarely Drug Use: None Review of Systems Review of Systems: ROS: 10pt was reviewed & negative except for what was stated in HPI & below Constitutional: Reports: fever Cardiac: Reports: no symptoms Gastrointestinal: Reports: abdominal pain Genitourinary: Reports: no symptoms Muscolosketal: Reports: other (Left knee surgery pain improving) Physical Exam Physical Exam: Alert oriented to person place and time mild/moderate distress secondary to abdominal pain. Pupils 4 mm reactive no icterus Extraocular motions intact Trachea midline No thyromegaly or cervical or supraclavicular adenopathy No JVD Regular rate and rhythm Clear to auscultation bilaterally Abdomen soft peritonitis diffusely with maximal tenderness in the left lower quadrant no hepatosplenomegaly small size well-healed infraumbilical scar Extremities without edema Left knee incision healing expected resolving ecchymosis 2+ over 2+ radial and dorsalis pedis pulses Skin has normal turgor and tone Affect is normal Temp Pulse Resp BP Pulse Ox 36.7 C 97 18 117/65 95 06/20/17 11:07 06/20/17 14:00 06/20/17 14:00 06/20/17 14:00 06/20/17 14:00 Lab Data & Imaging Review 06/20/17 11:27 06/20/17 11:27 WBC 3.44 10^3/uL (3.80-9.50) L 06/20/17 11:27 RBC 4.29 10^6/uL (4.18-5.33) 06/20/17 11:27 Hgb 12.8 g/dL (12.6-16.3) 06/20/17 11:27 Hct 36.7 % (38.0-47.0) L 06/20/17 11:27 MCV 85.5 fL (81.5-99.8) 06/20/17 11:27 MCH 29.8 pg (27.9-34.1) 06/20/17 11:27 MCHC 34.9 g/dL (32.4-36.7) 06/20/17 11:27 RDW 13.0 % (11.5-15.2) 06/20/17 11:27 Plt Count 461 10^3/uL (150-400) H 06/20/17 11:27 MPV 10.2 fL (8.7-11.7) 06/20/17 11:27 Neut % (Auto) Not Reported 06/20/17 11:27 Lymph % (Auto) Not Reported 06/20/17 11:27 [place] % (Auto) Not Reported 06/20/17 11:27 Eos % (Auto) Not Reported 06/20/17 11:27 Baso % (Auto) Not Reported 06/20/17 11:27 Nucleat RBC Rel Count Not Reported 06/20/17 11:27 Absolute Neuts (auto) Not Reported 06/20/17 11:27 Absolute Lymphs (auto) Not Reported 06/20/17 11:27 Absolute Monos (auto) Not Reported 06/20/17 11:27 Absolute Eos (auto) Not Reported 06/20/17 11:27 Absolute Basos (auto) Not Reported 06/20/17 11:27 Absolute Nucleated RBC Not Reported 06/20/17 11:27 Immature Gran % Not Reported 06/20/17 11:27 Seg Neutrophils % 48.0 % 06/20/17 11:27 Band Neutrophils % 31.0 % 06/20/17 11: Lymphocytes % 13.0 % 06/20/17 11: Monocytes % 7.0 % 06/20/17 11:27 Eosinophils % 0 % 06/20/17 11:27 Basophils % 0 % 06/20/17 11:27 Metamyelocytes % 0 % 06/20/17 11:27 Myelocytes % 0 % 06/20/17 11: Promyelocytes % 0 % 06/20/17 11: Blast Cells % 0 % 06/20/17 11:27 Immature Gran # Not Reported 06/20/17 11:27 Absolute Seg Neuts 1.65 10^/uL (1.70-6.50) L 06/20/17 11:27 Absolute Band Neuts 1.07 10^3/uL (0.00-0.70) H 06/20/17 11:27 Absolute Lymphocytes 0.45 10^3/uL (1.00-3.00) L 06/20/17 11: Absolute Monocytes 0.24 10^3/uL (0.30-0.80) L 06/20/17 11:27 Absolute Eosinophils 0.00 10^3/uL (0.03-0.40) L 06/20/17 11:27 Absolute Basophils 0.00 10^3/uL (0.02-0.10) L 06/20/17 11:27 Absolute Metamyelocyte 0.00 10^3/mL (0.00-0.00) 06/20/17 11:27 Absolute Myelocytes 0.00 10^3/mL (0.00-0.00) 06/20/17 11:27 Absolute Promyelocytes 0.00 10^3/uL (0.00-0.00) 06/20/17 11:27 Absolute Plasma Cells 0.03 10^3/uL (0.00-0.00) H 06/20/17 11:27 RBC/WBC/PLT Morphology NORMAL (NORMAL) 06/20/17 11:27 Absolute Blast Cells 0.00 10^3/uL (0.00-0.00) 06/20/17 11:27 Plasma Cells % 1.0 % 06/20/17 11:27 Platelet Estimate INCREASED (ADEQ) H 06/20/17 11:27 Sodium 130 mEq/L (135-145) L 06/20/17 11:27 Potassium 3.6 mEq/L (3.5-5.2) 06/20/17 11:27 Chloride 91 mEq/L (97-110) L 06/20/17 11:27 Carbon Dioxide 19 mEq/l (22-31) L 06/20/17 11:27 Anion Gap 20 mEq/L (8-16) H 06/20/17 11:27 BUN 35 mg/dL (7-23) H 06/20/17 11:27 Creatinine 1.7 mg/dL (0.6-1.0) H 06/20/17 11:27 Estimated GFR 29 06/20/17 11:27 Glucose 128 mg/dL (70-100) H 06/20/17 11:27 Calcium 8.5 mg/dL (8.5-10.4) 06/20/17 11:27 Total Bilirubin 2.6 mg/dL (0.1-1.4) H 06/20/17 11:27 Conjugated Bilirubin 1.3 mg/dL (0.0-0.5) H 06/20/17 11:27 Unconjugated Bilirubin 1.3 mg/dL (0.0-1.1) H 06/20/17 11:27 AST 20 IU/L (14-46) 06/20/17 11:27 ALT 36 IU/L (9-52) 06/20/17 11:27 Alkaline Phosphatase 146 IU/L (38-126) H 06/20/17 11:27 Total Protein 6.8 g/dL (6.3-8.2) 06/20/17 11:27 Albumin 3.4 g/dL (3.5-5.0) L 06/20/17 11:27 Imaging Review: Personally reviewed CT scan with Dr. Cuellar on PACS. Agree with findings of sigmoid perforation and peritonitis Imaging Impressions Abdomen/Pelvis CT 06/20/17 11:13 Impression: 1. Pneumoperitoneum, most likely a result of a microperforation associated with the inflamed sigmoid colon within the setting of diverticula. 2. Small-volume simple-appearing ascites. 3. Small hiatal hernia. 4. Status post right hip arthroplasty. Findings were discussed with Romina Rob PA-C at 13:06, on 06/20/2017. Assessment & Plan Assessment: Acute kidney injury (Acute) Dehydration with hyponatremia (Acute) Perforation of sigmoid colon due to diverticulitis (Acute) Pneumoperitoneum (Acute) Plan: Laparotomy and washout of abdomen with likely colectomy and diverting sigmoid colostomy. The risks benefits and alternatives to surgery have been outlined to the patient and her daughter all questions were addressed. Verbal confirmation of understanding prior to obtaining written consent from the daughter. The patient had received medication and felt that her daughter should sign for her. Metabolic derangements including hyponatremia, elevation of transaminases and alkaline phosphatase and acute kidney injury are noted. She will get hydrated and have hospital medicine consultation spoke with Dr. King regarding this or ready. Recent total knee arthroplasty in the setting of likely fecal peritonitis may require prolonged antibiotic use or broader spectrum infectious Disease consult will be arranged. Anticipate 5-7 day hospital stay.
[2017-06-20] MEDS ORDERED: BUPIVACAINE 0.5% 30 ML SDV ONE (14:48)
[2017-06-20] MEDS ORDERED: LIDOCAINE 1% 300 MG/30 ML SDV ONE (14:48)
--- NOTE | 2017-06-20 14:49 | PDANEPAE ---
ANE Past Medical History - Cardiovascular History Hx Hypertension: Yes Hx Arrhythmias: No Hx Chest Pain: No Hx Coronary Artery / Peripheral Vascular Disease: No Hx CHF / Valvular Disease: No Hx Palpitations: No - Pulmonary History Hx COPD: No Hx Asthma/Reactive Airway Disease: No Hx Recent Upper Respiratory Infection: No Hx Oxygen in Use at Home: No Hx Sleep Apnea: No - Neurologic History Hx Cerebrovascular Accident: No Hx Seizures: No Hx Dementia: No - Endocrine History Hx Diabetes: No Endocrine History Comment: HYPOTHYROID - Renal History Hx Renal Disorders: No - Liver History Hx Hepatic Disorders: No - Neurological & Psychiatric Hx Hx Neurological and Psychiatric Disorders: No - Cancer History Hx Cancer: Yes Cancer History Comment: SKIN - Congenital Disorder History Hx Congenital Disorders: No - GI History Hx Gastrointestinal Disorders: Yes Gastrointestinal History Comment: CONSTIPATION. INFREQUENT ?IBS - Other Health History Other Health History: OSTEOARTHRITIS - Chronic Pain History Chronic Pain: Yes (KNEES) - Surgical History Prior Surgeries: RT TOTAL KNEE 08/04/2015. RT TOTAL HIP. TONSILLECTOMY. REMVL LIPOMA. BREAST BX ANE Review of Systems Review of Systems: ANE Patient History - Allergies Allergies/Adverse Reactions: codeine Allergy (Unknown, Verified 06/20/17 11:26) VOMITTING amoxicillin Allergy (Verified 06/20/17 11:26) FACIAL SWELLING, BODY RASH Penicillins Allergy (Verified 06/20/17 11:26) Swelling/neck,face,throat - Home Medications Home Medications: Hydrochlorothiazide [HCTZ (*)] 25 mg PO DAILY 07/13/15 [Last Taken 06/19/17] Lisinopril [Zestril 10 mg (*)] 10 mg PO DAILY 07/13/15 [Last Taken 06/19/17] Levothyroxine [Synthroid 75 mcg (*)] 112.5 mcg PO FARMER@06 05/01/17 [Last Taken 08:00] Ondansetron Odt [Zofran Odt 4 mg (*)] 4 mg PO Q6H PRN 06/20/17 [Last Taken Unknown] - NPO status NPO Since - Liquids (Date): 06/20/17 NPO Since - Liquids (Time): 04:00 NPO Since - Solids (Date): 06/19/17 - Smoking Hx Smoking Status: Never smoked - Alcohol Use Alcohol Use: Rarely ANE Labs/Vital Signs - Labs Result Diagrams: 06/20/17 11:27 06/20/17 11:27 - Vital Signs Blood Pressure: 117/65 Heart Rate: 97 Respiratory Rate: 18 O2 Sat (%): 95 Height: 157.48 cm Weight: 88.451 kg ANE Physical Exam - Airway Neck exam: FROM Mallampati Score: Class 2 Mouth exam: normal dental/mouth exam - Pulmonary Pulmonary: no respiratory distress - Cardiovascular Cardiovascular: regular rate and rhythym - ASA Status ASA Status: III, E ANE Anesthesia Plan Anesthesia Plan: general endotracheal anesthesia
[2017-06-20] MEDS ORDERED: fentaNYL 250 MCG/5 ML INJ ONE (14:54)
[2017-06-20] MEDS ORDERED: ONDANSETRON 4 MG/2 ML VIAL ONE (14:55)
[2017-06-20] MEDS ORDERED: PROPOFOL 200 MG/20 ML VIAL ONE (14:55)
[2017-06-20] MEDS ORDERED: METOCLOPRAMIDE 10 MG/2 ML VIAL ONE (14:55)
[2017-06-20] MEDS ORDERED: LIDOCAINE 2% 100 MG/5 ML SYR ONE (14:55)
[2017-06-20] MEDS ORDERED: ROCURONIUM 100 MG/10 ML VIAL ONE (14:55)
--- NOTE | 2017-06-20 15:11 | PDHOSCONS ---
History and Physical - Chief Complaint Acute abdominal pain - History of Present Illness Primary care provider: Dr. Geovanna Keys Primary general surgeon: Dr. Rachel HPI: 72-year-old female presenting with acute abdominal pain located diffusely throughout her abdomen, characterized as sharp 10/10 pain with abrupt worsening on the morning of this presentation. She reports that over the past 1 week, she has been experiencing left lower quadrant pain with some associated bloating and anorexia over the last 2 days. She reports she was only able to tolerate approximately 600 mL of fluid yesterday. She has continued to take all of her home medications through yesterday, including CHERRI-inhibitor, diuretic , nonsteroidal anti-inflammatory medication. On the morning of this presentation, she awoke with sharp pain diffusely throughout, and has been constant and worsening throughout the day. She otherwise denies any fevers or chills, but does report some shortness of breath secondary to pain exacerbated by deep inspiration, as well as palpation and movement. She received IV fentanyl in the emergency department, she reports the pain was on alleviated by this dosage. Her last bowel movement was on the morning of presentation, characterized as 3 loose stools, nonbloody, nonmelanotic, and her last oral intake was around 4:00 a.m. On the day of presentation. History Information - Allergies/Home Medication List Allergies/Adverse Reactions: codeine Allergy (Unknown, Verified 06/20/17 11:26) VOMITTING amoxicillin Allergy (Verified 06/20/17 11:26) FACIAL SWELLING, BODY RASH Penicillins Allergy (Verified 06/20/17 11:26) Swelling/neck,face,throat Home Medications: Hydrochlorothiazide [HCTZ (*)] 25 mg PO DAILY 07/13/15 [Last Taken 06/19/17] Lisinopril [Zestril 10 mg (*)] 10 mg PO DAILY 07/13/15 [Last Taken 06/19/17] Levothyroxine [Synthroid 75 mcg (*)] 112.5 mcg PO FRAMER@05/01/17 [Last Taken 08:00] Ondansetron Odt [Zofran Odt 4 mg (*)] 4 mg PO Q6H PRN 06/20/17 [Last Taken Unknown] I have personally reviewed and updated: family history, medical history, social history, surgical history - Past Medical History hypertension, hyperlipidemia, migraines Additional medical history: Osteoarthritis, hypothyroidism, small-bowel obstruction, tortuous colon, diverticulosis, chronic hyponatremia with serum sodium baseline between 133 and 134 - Surgical History Additional surgical history: Right total hip arthroplasty 2015, right total knee arthroplasty 2016, recent left knee arthroplasty [address] Rachel, on full-dose aspirin for DVT prophylaxis - Family History Additional family history: Mother with coronary artery disease in her mid 60s, no family history of venous thromboembolism, no family history of end-stage renal disease - Social History Smoking Status: Never smoked Alcohol Use: Rarely Drug Use: None Additional social history: Independent in her ADLs, reports good metabolic equivalents prior to experiencing abdominal pain Review of Systems Review of Systems: ROS: 10pt was reviewed & negative except for what was stated in HPI & below Gastrointestinal: Reports: abdominal pain, diarrhea, other (Bloating) Physical Exam Physical Exam: Temp Pulse Resp BP Pulse Ox 36.6 C 97 18 117/65 95 06/20/17 14:49 06/20/17 14:49 06/20/17 14:49 06/20/17 14:49 06/20/17 14:49 Constitutional: uncomfortable, No no apparent distress (Mild), No not in pain ( Moderate to severe pain), No chronically ill appearing Eyes: PERRL, anicteric sclera, EOMI Ears, Nose, Mouth, Throat: hearing normal, other (Tacky mucous membranes) Cardiovascular: tachycardia, No systolic murmur, No irregularly irregular, No edema Respiratory: no respiratory distress, no rales or rhonchi, clear to auscultation , reduced air movement (Reduced in inspiratory ability secondary to abdominal pain) Gastrointestinal: tenderness (Diffusely throughout), guarding, distension ( Moderate), No normoactive bowel sounds (Absent bowel sounds) Skin: other (No erythema over the left knee, well healing without any tenderness at the surgical site) Neurologic: AAOx3, sensation intact bilaterally, No weakness (Motor strength 5/ 5 distal bilateral lower extremities) Psychiatric: interacting appropriately, not anxious, not encephalopathic, thought process linear, other (Concentration 08/15) Lab Data & Imaging Review 06/20/17 11:27 06/20/17 11:27 WBC 3.44 10^3/uL (3.80-9.50) L 06/20/17 11:27 RBC 4.29 10^6/uL (4.18-5.33) 06/20/17 11:27 Hgb 12.8 g/dL (12.6-16.3) 06/20/17 11:27 Hct 36.7 % (38.0-47.0) L 06/20/17 11:27 MCV 85.5 fL (81.5-99.8) 06/20/17 11:27 MCH 29.8 pg (27.9-34.1) 06/20/17 11:27 MCHC 34.9 g/dL (32.4-36.7) 06/20/17 11:27 RDW 13.0 % (11.5-15.2) 06/20/17 11:27 Plt Count 461 10^3/uL (150-400) H 06/20/17 11:27 MPV 10.2 fL (8.7-11.7) 06/20/17 11:27 Neut % (Auto) Not Reported 06/20/17 11:27 Lymph % (Auto) Not Reported 06/20/17 11:27 Fallon % (Auto) Not Reported 06/20/17 11:27 Eos % (Auto) Not Reported 06/20/17 11:27 Baso % (Auto) Not Reported 06/20/17 11:27 Nucleat RBC Rel Count Not Reported 06/20/17 11:27 Absolute Neuts (auto) Not Reported 06/20/17 11:27 Absolute Lymphs (auto) Not Reported 06/20/17 11:27 Absolute Monos (auto) Not Reported 06/20/17 11:27 Absolute Eos (auto) Not Reported 06/20/17 11:27 Absolute Basos (auto) Not Reported 06/20/17 11:27 Absolute Nucleated RBC Not Reported 06/20/17 11:27 Immature Gran % Not Reported 06/20/17 11:27 Seg Neutrophils % 48.0 % 06/20/17 11:27 Band Neutrophils % 31.0 % 06/20/17 11:27 Lymphocytes % 13.0 % 06/20/17 11:27 Monocytes % 7.0 % 06/20/17 11:27 Eosinophils % 0 % 06/20/17 11:27 Basophils % 0 % 06/20/17 11:27 Metamyelocytes % 0 % 06/20/17 11:27 Myelocytes % 0 % 06/20/17 11:27 Promyelocytes % 0 % 06/20/17 11:27 Blast Cells % 0 % 06/20/17 11:27 Immature Gran # Not Reported 06/20/17 11:27 Absolute Seg Neuts 1.65 10^/uL (1.70-6.50) L 06/20/17 11:27 Absolute Band Neuts 1.07 10^3/uL (0.00-0.70) H 06/20/17 11:27 Absolute Lymphocytes 0.45 10^3/uL (1.00-3.00) L 06/20/17 11:27 Absolute Monocytes 0.24 10^3/uL (0.30-0.80) L 06/20/17 11:27 Absolute Eosinophils 0.00 10^3/uL (0.03-0.40) L 06/20/17 11:27 Absolute Basophils 0.00 10^3/uL (0.02-0.10) L 06/20/17 11:27 Absolute Metamyelocyte 0.00 10^3/mL (0.00-0.00) 06/20/17 11:27 Absolute Myelocytes 0.00 10^3/mL (0.00-0.00) 06/20/17 11:27 Absolute Promyelocytes 0.00 10^3/uL (0.00-0.00) 06/20/17 11:27 Absolute Plasma Cells 0.03 10^3/uL (0.00-0.00) H 06/20/17 11:27 RBC/WBC/PLT Morphology NORMAL (NORMAL) 06/20/17 11:27 Absolute Blast Cells 0.00 10^3/uL (0.00-0.00) 06/20/17 11:27 Plasma Cells % 1.0 % 06/20/17 11:27 Platelet Estimate INCREASED (ADEQ) H 06/20/17 11:27 Sodium 130 mEq/L (135-145) L 06/20/17 11:27 Potassium 3.6 mEq/L (3.5-5.2) 06/20/17 11:27 Chloride 91 mEq/L (97-110) L 06/20/17 11:27 Carbon Dioxide 19 mEq/l (22-31) L 06/20/17 11:27 Anion Gap 20 mEq/L (8-16) H 06/20/17 11:27 BUN 35 mg/dL (7-23) H 06/20/17 11:27 Creatinine 1.7 mg/dL (0.6-1.0) H 06/20/17 11:27 Estimated GFR 29 06/20/17 11:27 Glucose 128 mg/dL (70-100) H 06/20/17 11:27 Calcium 8.5 mg/dL (8.5-10.4) 06/20/17 11:27 Total Bilirubin 2.6 mg/dL (0.1-1.4) H 06/20/17 11:27 Conjugated Bilirubin 1.3 mg/dL (0.0-0.5) H 06/20/17 11:27 Unconjugated Bilirubin 1.3 mg/dL (0.0-1.1) H 06/20/17 11:27 AST 20 IU/L (14-46) 06/20/17 11:27 ALT 36 IU/L (9-52) 06/20/17 11:27 Alkaline Phosphatase 146 IU/L (38-126) H 06/20/17 11:27 Total Protein 6.8 g/dL (6.3-8.2) 06/20/17 11:27 Albumin 3.4 g/dL (3.5-5.0) L 06/20/17 11:27 Visualized and Interpreted imaging results: Yes Interpretation: Abdominal CT demonstrating pneumoperitoneum with micro perforation in the sigmoid colon, diverticular disease, small amount of ascites and small hiatal hernia Assessment & Plan Assessment: 72-year-old female presents with acute perforated diverticulitis requiring emergent surgical intervention, complicated by acute kidney injury, acute on chronic hyponatremia Plan: 1. Acute perforated diverticulitis. Resulting in pneumoperitoneum on CT, the patient currently has a surgical abdomen and requires emergent surgical intervention, Dr. Ehsan Bolivar is primary -discussed with anesthesiologist Dr. Mello Greenberg, he reports that they are taking the patient to the OR immediately and the patient is currently undergoing preoperative evaluation -RCRI of 1, conferring 1.5% perioperative risk of cardiovascular morbidity and/ or mortality, rendering patient low to intermediate cardiovascular risk for an intermediate risk intra-abdominal surgery -recommend proceeding to surgery without further cardiac risk stratification given her good metabolic equivalents prior to her acute situation and no previous history of cardiovascular disease -IV antibiotics under the direction of general surgery -monitor hemoglobin level for any evidence of postoperative acute blood loss anemia -if she develops any postoperative chest pain, would recommend EKG and troponin at that time -the patient prefers morphine for pain control, will order oral and IV morphine to be used postoperatively at the direction of the primary service -incentive spirometer -bowel regimen at the discretion of the primary service 2. Acute kidney injury. New problem this provider, further workup indicated. Suspect that the etiology is a combination of hypovolemia as well as renal hypoperfusion in the setting of ongoing diuretic use, CHERRI-inhibitor, nonsteroidal anti-inflammatory medication, all of which were taken as recently as 06/19/2017 per her medication administration sheet provided by her daughter -reviewed outside records including 05/21/2017 outpatient laboratory values demonstrating baseline creatinine of 0.9 -get urinalysis -monitor strict I&Os, daily weights -patient will receive pre and perioperative IV fluids, recommend ongoing normal saline postoperatively without any supplemental potassium -monitor daily creatinine level -hold CHERRI-inhibitor, hold diuretic, hold NSAIDs 3. Acute on chronic hyponatremia. Most likely secondary to hypovolemia and reduced renal perfusion in the setting of above -reviewed outside records, most recent outpatient serum sodium level is from 01/2018, 134 -acute drop demonstrates clinically significant hyponatremia with increased risk of morbidity, will give normal saline and reassess serum sodium level in a.m. 4. Hypertension. Chronic, hold her home antihypertensives given her acute kidney injury and intra-abdominal perforation Hospital Medicine will continue to consult in this patient's care.
[2017-06-20 15:38] LABS: INR 1.34 (0.83-1.16); PROTIME(PATIENT) 16.8 SEC (12.0-15.0)
[2017-06-20] MEDS ORDERED: SUGAMMADEX SODIUM 200 MG/2 ML VIAL IVP ONE (16:47)
[2017-06-20] MEDS ORDERED: ALBUMIN 5% 250 ML BOTTLE IV ONE (16:48)
[2017-06-20] MEDS ORDERED: ONDANSETRON 4 MG/2 ML VIAL IVP PRN (17:39)
[2017-06-20] MEDS ORDERED: LR 500 ML IV PRN (17:39)
[2017-06-20] MEDS ORDERED: NALOXONE HCL 0.4 MG/ML INJ IVP PRN ×2 (17:39)
[2017-06-20] MEDS ORDERED: ALBUTEROL 3 ML DEYVIAL IH PRN (17:39)
[2017-06-20] MEDS ORDERED: MEPERIDINE 25 MG/0.5 ML AMP IVP PRN (17:39)
--- NOTE | 2017-06-20 17:41 | POSTANESTH ---
Post Anesthetic Evaluation Cardiovascular Status: Similar to Pre-Op Cond Respiratory Status: Similar to Pre-op Cond. Level of Consciousness/Mental Status: Mildly Sleepy, Arousable Pain Control: Adequate, Prn Tx Ordered Nausea/Vomiting Control: Adequate, Prn Tx Ordered Complications Possibly Related to Anesthesia: None Noted
--- NOTE | 2017-06-20 17:54 | POSTOPPROG ---
Post Op Note Date of Operation: 06/20/17 Surgeon: Ehsan Bolivar Change Management Consultant: Jarrell WINSLOW Anesthesia: GET(General Endotracheal) Pre-op Diagnosis: Perforated diverticular Post-op Diagnosis: Stercoral ulcer Procedure: Left colon Findings: fecal peritonitis Inf/Abcess present in the surg proc area at time of surgery?: Yes Depth: Organ Space EBL: Minimal Total fluids administered: 2.4 L xtalloid, 250 mg albumin Specimen(s): sigmoid colon colon Open on both ends (perforation distal) left colon distal end stapled
[2017-06-20] MEDS ORDERED: fentaNYL 100 MCG/2 ML INJ ONE (18:02)
[2017-06-20] MEDS: fentaNYL 100 MCG/2 ML INJ IVP PRN ×3 (18:08→18:40)
--- NOTE | 2017-06-20 19:09 | PDMN ---
Medical Necessity Medical necessity: C/M review: est. > 2 MN LOS charles eval and TX of acute perforation of the sigmoid colon due to doverticulitis, pneumoperitoneum seen on CT, acute kidney injury, acute dehydration with hyponatremia requiring emergent 06/20/2017 surgery - laparotomy, washout of abfomen, left descending colectomy and diverting sigmoid colostomy- inpatient only surgery per Medicare guidelines,, findings - fecal peritonitis, postop diagnosis- stercoral ulcer requiring Hospitalist consult, planned Infectious Disease consult, ongoing postop IV fluids, IV Ertapenem in SDU per H/P, surgery postop report.
[2017-06-20] MEDS: D5W 1/2 NS 1,000 ML IV SCH (19:47)
[2017-06-20] MEDS: METOCLOPRAMIDE 10 MG/2 ML VIAL IVP SCH ×2 (21:21→22:49)
[2017-06-20] MEDS ORDERED: NS 500 ML IV ONE (22:41)
--- NOTE | 2017-06-21 00:28 | SOAPPROG ---
SOAP Progress Note Assessment/Plan: Assessment/Plan: Oliguric hypotensive not responding to boluses 4 L in last 8 hrs Recent bolus NS Will check lytes Plan on bolus start levo 06/21/17 00:26 Objective: Vital Signs Temp Pulse Resp BP Pulse Ox 37.0 C 90 19 80/44 L 95 06/21/17 00:00 06/21/17 00:00 06/21/17 00:00 06/21/17 00:00 06/21/17 00:00 Microbiology 06/20/17 15:45 Gram Stain - Final Peritoneal Fluid - Aspirate Laboratory Results 06/20/17 22:55 06/19/17 06/20/17 06/21/17 05:59 05:59 05:59 Intake Total 4800 Output Total 160 Balance 4640 PT 16.8 SEC (12.0-15.0) H 06/20/17 13:18 INR 1.34 (0.83-1.16) H 06/20/17 13:18 ICD10 Worksheet Patient Problems: Problems Problem Status Onset Acute kidney injury Acute Dehydration with hyponatremia Acute Perforation of sigmoid colon due to diverticulitis Acute Pneumoperitoneum Acute Osteoarthritis of left knee Acute Osteoarthritis of right knee Acute Primary osteoarthritis of right hip Acute
[2017-06-21] MEDS ORDERED: NOREPINEPHRINE/NS 500 ML IV SCH (00:30)
[2017-06-21] MEDS ORDERED: NS 500 ML IV ONE ×2 (00:31→05:41)
[2017-06-21] MEDS: NOREPINEPHRINE BITARTRATE 4 MG in NS 500 ML IV SCH ×2 (00:37→09:21)
--- NOTE | 2017-06-21 05:12 | GOP ---
[f rep st] OPERATIVE REPORT DATE OF OPERATION: SURGEON: Ehsan Bolivar MD CONVERTING OPERATOR: Jarrell Santos, CASTING OPERATOR HELPER. Use of assistant toddler teacher is necessary and standard for the safety and efficiency of this case. ANESTHESIA: General endotracheal anesthesia was used. ANESTHESIOLOGIST: Mello Greenberg MD. PREOPERATIVE DIAGNOSIS: Sigmoid diverticulitis, perforated. POSTOPERATIVE DIAGNOSIS: Stercoral ulcer with perforation, fecal peritonitis. PROCEDURE PERFORMED: Laparotomy, left colectomy with end colostomy, mobilization of splenic flexure. FINDINGS: SPECIMENS: Sigmoid colon, open on both ends; stercoral perforation closer to the distal end, and lef t colon, which the distal end was stapled. ESTIMATED BLOOD LOSS: Less than 50 mL. The patient will be sent to the step-down unit for recovery. INDICATIONS: This is a 72-year-old woman who presents with 1 week of increasing abdominal pain and h istory of recent total knee replacement 2 weeks ago. She ended up having peritoneal signs this morni ng with acute pain 10/10, unable to move. She was seen and evaluated in the emergency room, found to have leukopenia with a white blood cell count of 3.5, but pneumoperitoneum and signs of sigmoid dive rticulitis. DESCRIPTION OF PROCEDURE: The patient was brought into the operating room. After induction of endot dash anesthesia in supine position, Nielsen catheter was placed. The patient was draped. Time-out procedure was performed according to institutional standards. The abdomen was prepped with chlorhexi dine and draped sterilely. Local anesthetic was infused in skin and subcutaneous tissues of the lowe r midline and the abdomen was approached through a lower midline incision. The initial note of ascit ic type fluid, which sent for culture. Then after encountering the mass in the sigmoid colon, it was found to be large with copious amounts of stool extruding into the peritoneal cavity. This area was then mobilized and gross fecal peritonitis was manually removed and the colon was mobilized along th e left pericolic gutter and sigmoid colectomy was then performed. After getting the distal endpoint for the colon resected, a TA stapler was used to divide the colon flush with the base of the sigmoid colon at the colorectal junction. The colon was mobilized using the LigaSure bipolar energy device t o the inferior mesenteric vessels and the colon was divided at this point and passed off. The abdome n was irrigated and aspirated until clear. The rest of the inspection was performed. There were poc kets of fluid and necrotic debris where the colon and the stool had abutted the small bowel. The bow el was run from the ligament of Treves to the ileocecal valve and the colon from the right colon ileo cecal junction to the termination. There was compromise of the bowel in the left colon with areas of inspissated hard stool and areas where there appeared to be impending perforation of the colon. It was decided at this point to complete a left colectomy to lower the burden of stool content and lesse n the chance of future perforation. The colon was mobilized along the white line of Toldt up to the splenic flexure. This was mobilized with electrocautery and bipolar energy. The omentum was then di ssected off the transverse colon, getting into the lesser sac. The colon was divided almost flush wi th the base of the colon at the level of mesentery to ensure the marginal artery was still available. After reaching an end point for the stool and viable bowel, the colon was divided, oversewn, and br ought up through a separate incision in the left lower quadrant between the rectus. The area for the colostomy was then brought up with the mesentery pointing laterally to the left. The abdomen was ag ain inspected, irrigated. Clean closure technique was then used to reapproximate the fascia using 0 PDS and the skin was loosely reapproximated using clips after irrigation. The wound was protected wi th towels and the colostomy matured using 3-0 Vicryl in Roxanna fashion. Needle, instrument, and spon ge counts were verified to be correct. The patient's colostomy was then protected using an ostomy ap pliance and the patient was awakened fully, extubated, and taken to the recovery room in stable condi tion. No immediate complications. Needle, instrument, and sponge counts verified to be correct x2. The fluid given, 2.4 L of crystalloid, 250 cc of albumin. /[id number]/MODL
[2017-06-21] MEDS: METOCLOPRAMIDE 10 MG/2 ML VIAL IVP SCH ×3 (05:13→17:19)
[2017-06-21] MEDS: D5W 1/2 NS 1,000 ML IV SCH (05:59)
--- NOTE | 2017-06-21 06:06 | POSTOPPROG ---
Post Op Note Date of Operation: 06/21/17 Surgeon: Ehsan Bolivar Plumbers And Top Helpers: none Anesthesiologist: none Anesthesia: Local (Specify) (1% xylocaine 3 ml) Pre-op Diagnosis: sepsis Post-op Diagnosis: same Procedure: R IJ TLC placement - ultrasound guided Findings: good draw/flush cxr pending Inf/Abcess present in the surg proc area at time of surgery?: No EBL: Minimal
[2017-06-21 06:25] LABS: PLATELET COUNT 392 10^3/uL (150-400)
--- NOTE | 2017-06-21 06:38 | GOP ---
[f rep st] OPERATIVE REPORT DATE OF OPERATION: SURGEON: Ehsan Bolivar MD ANESTHESIA: Local anesthetic was used. PREOPERATIVE DIAGNOSIS: Sepsis. POSTOPERATIVE DIAGNOSIS: Sepsis. PROCEDURE PERFORMED: Triple-lumen placement, right internal jugular vein. FINDINGS: Good withdrawal and flush in all 3 ports. Easy access and wire placement with a single st ick. INDICATIONS: This is a 72-year-old patient who presents with sepsis from perforated colon and needs more invasive IV access. DESCRIPTION OF PROCEDURE: The patient is placed supine on her bed. Time-out procedure was performed according to institutional standards. The area was cleansed with chlorhexidine, draped sterilely wi th a maximal barrier drape. Local anesthetic was infused in skin and subcutaneous tissue. Sterile s tandard technique was used to access the wire under ultrasound guidance. After cannulation of the in ternal jugular vein, Seldinger technique was used to maintain access. The area is dilated and the ca theter was placed into the central circulation without difficulty. Good draw and flush noted to all 3 ports and secured at 18 cm. The patient tolerated the procedure well. It is dressed sterilely, an d a chest x-ray was ordered. COMPLICATIONS: There were no complications. /[id number]/MODL
[2017-06-21] MEDS ORDERED: NS 1,000 ML IV ONE (07:37)
--- NOTE | 2017-06-21 07:40 | SOAPPROG ---
SOAP Progress Note Assessment/Plan: Assessment/Plan: POD#1 /p laparotomy Oliguric hypotensive now responding to boluses 4 L in last 8 hrs Levophed started TLC placed RIJ RRRCTA ABd softly distended. Ostomy viable Cr 2.0 (stabilized) 1L bolus NS Will check lytes periodically Wean levo Clear liq diet 06/21/17 00:26 06/21/17 07:38 Objective: Vital Signs Temp Pulse Resp BP Pulse Ox 36.6 C 90 27 H 105/55 L 94 06/21/17 04:00 06/21/17 07:00 06/21/17 07:00 06/21/17 07:00 06/21/17 07:00 Microbiology 06/20/17 15:45 Gram Stain - Final Peritoneal Fluid - Aspirate Laboratory Results 06/21/17 06:10 06/21/17 06:10 06/20/17 06/21/17 06/22/17 05:59 05:59 05:59 Intake Total 7602 Output Total 245 Balance 7357 PT 16.8 SEC (12.0-15.0) H 06/20/17 13:18 INR 1.34 (0.83-1.16) H 06/20/17 13:18 ICD10 Worksheet Patient Problems: Problems Problem Status Onset Acute kidney injury Acute Dehydration with hyponatremia Acute Perforation of sigmoid colon due to diverticulitis Acute Pneumoperitoneum Acute Osteoarthritis of left knee Acute Osteoarthritis of right knee Acute Primary osteoarthritis of right hip Acute
[2017-06-21] MEDS ORDERED: ENOXAPARIN 40 MG/0.4 ML SYR SC SCH (09:00)
[2017-06-21] MEDS ORDERED: ERTAPENEM 1 GM VIAL IV SCH (09:00)
[2017-06-21] MEDS: ENOXAPARIN 30 MG/0.3 ML SYR SC SCH (09:01)
[2017-06-21] MEDS: MICAFUNGIN NA 100 MG in NS 100 ML IV SCH (11:10)
--- NOTE | 2017-06-21 11:38 | GCON ---
[f rep st] CONSULTATION INFECTIOUS DISEASE CONSULTATION DATE OF CONSULTATION: 06/21/2017 REFERRING PHYSICIAN: Ehsan Bolivar MD REASON FOR CONSULTATION: Fecal peritonitis with recent knee replacement. HISTORY OF PRESENT ILLNESS: The patient is a 72-year-old female with a past medical history of left- sided knee replacement on 06/03/2017, who I am now asked to see in consultation for septic shock liliana broderick with fecal peritonitis. The patient describes doing well post knee replacement from a musculoskeletal standpoint. Approximat monico 1 week ago, she developed gas pain and constipation. She was taking stool softeners without reli ef of her symptoms. Gradually, she had more difficulty having a bowel movement and describes passing hard stool. She subsequently developed significant abdominal pain diffusely prompting evaluation in the emergency department yesterday. At the time of presentation, the patient was noted to be leukopenic with a white count of 3.44 and 31 % bands. She also had acute renal insufficiency with a creatinine of 1.7. CT scan of the abdomen an d pelvis was performed, which showed evidence of pneumoperitoneum. She was taken emergently to the o perating room where she was found to have fecal peritonitis associated with stercoral perforation req uiring abdominal washout and left colectomy with diverting colostomy. Gram stain of the abdominal co ntents is polymicrobial, including yeast. The patient has received ertapenem empirically, and blood cultures were obtained. The patient has not noted significant knee pain, redness, or drainage. The patient's blood pressure did decrease overnight, requiring addition of Levophed, which currently is b eing titrated down. No associated nausea or vomiting. No cough or shortness of breath. No dysuria. Given the above findings in the setting of recent knee replacement, I am now asked to assist in her o ngoing management. PAST MEDICAL HISTORY: Hypertension, hypothyroidism, osteoarthritis, diverticulosis. PAST SURGICAL HISTORY: Right hip replacement, right knee replacement, recent left knee replacement, tonsillectomy. CURRENT MEDICATIONS: Ertapenem 1 g IV daily, Lovenox 30 mg subcu daily, Levophed drip, morphine and Zofran as needed. ALLERGIES: Penicillin associated with diffuse swelling. SOCIAL HISTORY: Patient does not smoke. She drinks alcohol socially. The patient traveled to [facility] in February of 2016. No unusual animal exposures. FAMILY HISTORY: Mother with metastatic colon cancer. REVIEW OF SYSTEMS: Outside that noted in the HPI, remainder of 10 system review was unremarkable. Demi stephens has an indwelling right subclavian triple-lumen catheter. The patient has not been experienci ng fever or chills. PHYSICAL EXAMINATION: VITAL SIGNS: Temperature 37.0, heart rate 97, respiratory rate 23, blood pres sure 124/60, oxygen saturation 93% on 1 L. GENERAL: Patient is an obese female who appears fatigued but nontoxic. HEENT: There is no scleral icterus, conjunctival injection, or conjunctival petechia e. Oropharynx shows dry mucous membranes. No thrush is noted. There is no nasal discharge. There is no tenderness over the frontal, maxillary or mastoid area. NECK: Supple without palpable lymphad enopathy or thyromegaly. CHEST: Clear to auscultation anterolaterally without adventitious sounds. The respiratory effort was normal. A right subclavian triple-lumen catheter is in place. CARDIOVAS CULAR: Regular rate and rhythm without murmurs, gallops, or rubs. ABDOMEN: Soft, distended, tender in the lower quadrants bilaterally, left greater than right. Stoma is intact. Midline incision is dressed postoperatively. MUSCULOSKELETAL: Left knee incision is intact without erythema or drainage . There is mild overlying warmth. There is no pain to palpation. SKIN: No rashes are noted. No s tigmata of endocarditis. The skin is cool in the periphery. NEUROLOGIC: Patient is alert and inter acts appropriately with the examiner. Cranial nerves 2-12 are grossly intact. Sensation is grossly intact. Muscle tone and bulk are normal. LYMPHATICS: No cervical, supraclavicular or inguinal node s. : Nielsen catheter is in place. LABORATORY DATA: White blood cell count 11.9, hematocrit 31.8, platelets 392, neutrophils 72%. Seru m creatinine 2.0, AST 30, ALT 34, bilirubin 2.9, albumin 2.0, alkaline phosphatase 71. INR is 1.3. Urinalysis shows 10-15 red blood cells and 15-25 white blood cells. Gram stain from the intraabdomin al contamination shows 3+ white blood cells with 4+ gram-negative rods, 3+ yeast, 3+ gram-positive ro ds, 2+ gram-positive cocci with growth of a lactose fermenting and non-lactose fermenting gram-negati ve lenin. CT scan as outlined above. Intraoperative findings reviewed with Dr. Bolivar. IMPRESSION: 1. Septic shock associated with colonic perforation and fecal peritonitis, status post washout with diverting colostomy and colectomy: Polymicrobial leonela consistent with fecal peritonitis including y east. The patient does have a non-lactose fermenting gram-negative lenin, which raises the possibility of Pseudomonas. Prior travel to [place] is relatively remote, so suspect risk of extended-spectrum be ta lactamase would be more associated with local prevalence. In the absence of bacteremia, I do not think this should pose significant risk to recent knee replacement. If bacteremia present, this wou ld be a different consideration. She is at high risk for development of intraabdominal abscess based on fecal peritonitis. 2. Acute renal insufficiency: Likely related to hypovolemia, hypotension and sepsis. 3. Leukopenia: Initially, patient presented with leukopenia and significant bandemia. This is now correcting, which is a positive finding. RECOMMENDATIONS: 1. Meropenem 500 mg IV q.12 hours for added activity against Pseudomonas. 2. Micafungin 100 mg IV q.24 hours based on Gram stain showing yeast. 3. Discontinue ertapenem. 4. Continued sepsis care in the ICU. 5. Follow up cultures with modification of antibiotic therapy accordingly. Thank you for this consultation. We will continue to follow the patient with you. /[id number]/MODL
--- NOTE | 2017-06-21 11:43 | GCON ---
[f rep st] CONSULTATION MARKET DEVELOPMENT SPECIALIST CONSULTATION REASON FOR ADMISSION: Abdominal pain, perf diverticulum, peritonitis. HISTORY OF PRESENT ILLNESS: Ms. Guerra is a pleasant 72-year-old white female with a past medical hi story, including osteoarthritis, hypothyroidism, hypertension, hypercholesterolemia and migraines. S he presented to the emergency room with complaints of abdominal pain. She had undergone a left knee arthroplasty in May of this year. She was placed on IV antibiotics with Invanz, and admitted. She was seen by General Surgery, where she underwent left-sided colectomy. In discussion with patient, she states with the exception of pain she is doing quite well. She does get somewhat dizzy when she sits up. She denies any cough or productive sputum. There is no chest pain, pleuritic-type chest pa in, or angina equivalent. She has a bit of nausea. REVIEW OF SYSTEMS: A 10-point review of systems is performed and is negative except for what is list ed in HPI. PAST MEDICAL HISTORY: Again, significant for osteoarthritis, hypertension, hypercholesterolemia, hy pothyroidism and migraines. PAST SURGICAL HISTORY: Has had right hip arthroplasty, right total knee arthroplasty, and left total knee arthroplasty. FAMILY HISTORY: Noncontributory. SOCIAL HISTORY: She has never smoked cigarettes. She admits to infrequent alcohol use. 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 She is , with two children. She has lived in [place] for over 40 years. PHYSICAL EXAM: VITAL SIGNS: Blood pressure 124/60, pulse is 97, respirations 23, temperature 37.0. Oxygen saturation 92% on 1 L. GENERAL: She is a moderately overweight, elderly white female who is resting comfortably on supplemental oxygen. HEENT: Eyes are PERRLA, EOMI. Throat shows no erythem a or tonsillar hypertrophy. NECK: Supple. There is no cervical adenopathy. HEART: Regular rate a nd rhythm, without murmurs, rubs, or gallops. LUNGS: Diminished breath sounds, but no wheeze. ABDO MEN: Soft, diffusely tender. Bowel sounds are diminished. EXTREMITIES: No clubbing, cyanosis, or edema. LABORATORY DATA: White count 11.8, hemoglobin 11, hematocrit 31, platelet count is 392. Sodium 131, potassium 4.0, chloride 99, CO2 is 20, BUN 36, creatinine 2.1. Glucose is 171. Urinalysis: PH 5, specific gravity 1.021, 10-15 RBCs, 15-25 WBCs. IMPRESSION: 1. Peritonitis. 2. Status post left colectomy. 3. Acute renal failure, appears prerenal. 4. Shock. 5. Obesity. 6. Hypothyroidism. 7. History of hypertension. 8. History of migraines. 9. History of osteoarthritis. RECOMMENDATIONS: 1. Agree with current antibiotic coverage. 2. Agree with Infectious Disease consultation. 3. Aggressive IV hydration. 4. Follow BUN and creatinine closely. 5. Adequate pain control. 6. DVT and PE prophylaxis. 7. Stress ulcer prophylaxis. /[id number]/MODL
--- NOTE | 2017-06-21 12:04 | ASMTCMCOM ---
CM Note CM Note Notes: 72yr old female admitted for a perforated DVT went to surgery has a new colostomy. She has a hx of OA-bilateral knees and R hip, HTN, Hypercholesterolemia. Therapies to denise, IMANI to follow for discharge needs. Lives alone . Date Signed: 06/21/2017 12:03 PM Electronically Signed By:Lay Gibson LCSW
[2017-06-21] MEDS: fentaNYL 100 MCG/2 ML INJ IVP PRN ×4 (12:14→20:36)
[2017-06-21] MEDS ORDERED: NS 1,000 ML IV SCH (13:15)
[2017-06-21] MEDS: LEVOTHYROXINE 75 MCG TAB PO SCH (13:52)
--- NOTE | 2017-06-21 15:13 | HOSPPROG ---
Hospitalist Progress Note Assessment/Plan: * Septic shock -IV Levophed - wean to off -s/p 8L IVF * Stercoral ulcer with perforation s/p colostomy * Fecal peritonitis -IV meropenem + IV micafungin * ARF - improving -hold lisinopril, HCTZ and celebrex * Obesity BMI 35 * Recent L TKA Subjective: No new complaints. Objective: Vital Signs Temp Pulse Resp BP Pulse Ox 36.8 C 108 H 35 H 142/66 H 96 06/21/17 12:00 06/21/17 14:00 06/21/17 14:00 06/21/17 14:00 06/21/17 14:00 Microbiology 06/20/17 15:45 Gram Stain - Final Peritoneal Fluid - Aspirate Laboratory Results 06/21/17 06:10 06/21/17 06:10 06/20/17 06/21/17 06/22/17 05:59 05:59 05:59 Intake Total 7602 1209 Output Total 245 177 Balance 7357 1032 PT 16.8 SEC (12.0-15.0) H 06/20/17 13:18 INR 1.34 (0.83-1.16) H 06/20/17 13:18 d/w Dr. Bolivar - got 8L fluid last night CT abd/pelvis - pneumoperitoneum coming from sigmoid colon - Physical Exam Constitutional: no apparent distress, appears nourished, not in pain Cardiovascular: regular rate and rhythym, no murmur, rub, or gallop Respiratory: no respiratory distress, no rales or rhonchi, clear to auscultation Gastrointestinal: normoactive bowel sounds, soft, non-tender abdomen, no palpable masses Skin: no rashes or abrasions, no fluctuance, no induration Neurologic: AAOx3, sensation intact bilaterally Psychiatric: interacting appropriately, not anxious, not encephalopathic, thought process linear ICD10 Worksheet Patient Problems: Problems Problem Status Onset Acute kidney injury Acute Dehydration with hyponatremia Acute Perforation of sigmoid colon due to diverticulitis Acute Pneumoperitoneum Acute Osteoarthritis of left knee Acute Osteoarthritis of right knee Acute Primary osteoarthritis of right hip Acute
[2017-06-21] MEDS ORDERED: FUROSEMIDE 20 MG/2 ML VIAL ONE (16:28)
[2017-06-21] MEDS ORDERED: FUROSEMIDE 20 MG/2 ML VIAL IVP ONE (16:30)
[2017-06-21] MEDS: MEROPENEM 500 MG in NS 100 ML IV SCH (17:21)
[2017-06-22] MEDS: fentaNYL 100 MCG/2 ML INJ IVP PRN ×2 (00:13→05:59)
[2017-06-22] MEDS: METOCLOPRAMIDE 10 MG/2 ML VIAL IVP SCH ×5 (00:15→23:59)
[2017-06-22] MEDS: LEVOTHYROXINE 75 MCG TAB PO SCH (05:59)
[2017-06-22] MEDS: MEROPENEM 500 MG in NS 100 ML IV SCH (05:59)
[2017-06-22 06:56] LABS: PLATELET COUNT 303 10^3/uL (150-400)
[2017-06-22] MEDS: ENOXAPARIN 30 MG/0.3 ML SYR SC SCH (08:08)
[2017-06-22] MEDS: ONDANSETRON 4 MG/2 ML VIAL IVP PRN ×3 (08:08→20:49)
[2017-06-22] MEDS: traMADol 50 MG TAB PO PRN ×3 (08:13→20:49)
--- NOTE | 2017-06-22 08:44 | SOAPPROG ---
SOAP Progress Note Assessment/Plan: Assessment/Plan: POD#2 s/p laparotomy Improved U/o Cr down to 1.2 (baseline <1) Levophed off (<12 hr) TLC RIJ site c/d RRR (tahcy) Diminished bilat Abd softly distended. Ostomy viable Peritoneal cx E coli Blood cx neg x36hr Clear liq diet OOB CXR will likely show atelectasis and overload due to resuscitation Would hold off on lasix until tomorrow Continue Meropenam as appropriate Kae coverage Still tachy with leucocytosis (SIRS) Hypertensive hold on normal BP meds Keep in unit for now 06/21/17 00:26 06/21/17 07:38 06/22/17 08:40 Objective: Vital Signs Temp Pulse Resp BP Pulse Ox 36.9 C 109 H 30 H 147/67 H 96 06/22/17 08:00 06/22/17 08:00 06/22/17 08:00 06/22/17 08:00 06/22/17 08:00 Microbiology 06/20/17 15:45 Gram Stain - Final Peritoneal Fluid - Aspirate Laboratory Results 06/22/17 06:10 06/22/17 06:10 06/21/17 06/22/17 06/23/17 05:59 05:59 05:59 Intake Total 7602 4327 Output Total 245 1259 Balance 7357 3068 PT 16.8 SEC (12.0-15.0) H 06/20/17 13:18 INR 1.34 (0.83-1.16) H 06/20/17 13:18 ICD10 Worksheet Patient Problems: Problems Problem Status Onset Acute kidney injury Acute Dehydration with hyponatremia Acute Perforation of sigmoid colon due to diverticulitis Acute Pneumoperitoneum Acute Osteoarthritis of left knee Acute Osteoarthritis of right knee Acute Primary osteoarthritis of right hip Acute
[2017-06-22] MEDS ORDERED: oxyCODONE IR 5 MG TAB PO PRN (09:37)
[2017-06-22] MEDS ORDERED: HYDROmorphone HCL 0.5 MG/0.5 ML SYR IVP PRN (09:38)
--- NOTE | 2017-06-22 10:30 | PCMIDPN ---
Assessment/Plan: Assessment: Fecal contamination of the peritoneum after a large bowel/rectal rupture due to advance constipation. This is on the heels of a total knee arthroplasty approximately 2 weeks ago. Currently the patient is on meropenem and micafungin. She is clinically doing better. White blood cell count remains high but is appropriate at this point. Her creatinine is improved significantly from yesterday to today. We will adjust antibiotic doses as appropriate. Patient is at risk for development of infected collections in the pelvic area given her significant fecal contamination. This is despite broad antibiotic coverage. Likely will need to plan on a follow-up image in the next 2 weeks or so. Plan: 1. Continue both meropenem and micafungin. 2. Follow her fever curve as well as her white cell count and creatinine. 3. Adjust antibiotic doses. 4. Probably plan on a follow-up CT scan in approximately 2 weeks. 06/22/17 10:27 Subjective: Patient is sitting up in her chair. She is having some difficulty with conversation due to perceived shortness of breath. Her pulse oxygenation is 96 98% with supplemental O2. She denies any fevers or chills. Overall she feels much better. Objective: Meropenem # 1 Micafungin # 1 Vital Signs Temp Pulse Resp BP Pulse Ox 36.9 C 109 H 30 H 147/67 H 96 06/22/17 08:00 06/22/17 08:00 06/22/17 08:00 06/22/17 08:00 06/22/17 08:00 Microbiology 06/20/17 15:45 Gram Stain - Final Peritoneal Fluid - Aspirate Laboratory Results 06/22/17 06:10 06/22/17 06:10 06/21/17 06/22/17 06/23/17 05:59 05:59 05:59 Intake Total 7602 4327 Output Total 245 1259 Balance 7357 3068 - Physical Exam General Appearance: WD/WN, alert, no apparent distress, non-toxic Respiratory: lungs clear, crackles, wheezing (Mild), No normal breath sounds, No respiratory distress Cardiac/Chest: regular rate, rhythm, No tachycardia Extremities: non-tender, normal inspection Skin: normal color, warm/dry, No rash Neuro/Psych: alert, normal mood/affect, oriented x 3 ICD10 Worksheet Patient Problems: Problems Problem Status Onset Acute kidney injury Acute Dehydration with hyponatremia Acute Perforation of sigmoid colon due to diverticulitis Acute Pneumoperitoneum Acute Osteoarthritis of left knee Acute Osteoarthritis of right knee Acute Primary osteoarthritis of right hip Acute
[2017-06-22] MEDS: ALBUMIN 25% 100 ML IV SCH ×3 (11:52→23:59)
[2017-06-22] MEDS: MICAFUNGIN NA 100 MG in NS 100 ML IV SCH (11:52)
[2017-06-22] MEDS ORDERED: PROTOCOL POTASSIUM 1 DOSE MISC PRN (12:52)
[2017-06-22] MEDS ORDERED: POTASSIUM Cl (KCl) 50 ML IV ONE ×2 (13:00→14:00)
[2017-06-22] MEDS ORDERED: POTASSIUM Cl (KCl) 10 MEQ in NS 50 ML IV ONE (13:00)
[2017-06-22] MEDS ORDERED: POTASSIUM Cl (KCl) 50 ML IV SCH (13:00)
[2017-06-22] MEDS: NS IV SCH (14:58)
[2017-06-22] MEDS: MEROPENEM IV SCH (14:58)
--- NOTE | 2017-06-22 15:01 | PDINTPN ---
Leasing Representative Progress Note Assessment/Plan: Assessment: S/P Colon perforation with peritonitis due to constipation-> left colectomy . Remains tachycardic. Has mild hypertension. WBC and bands up today, afebrile. On Micafungin, meropenem HTN: SBP up to 160s today. Home lisinopril/HCTZ currently held. PABLO: Cr improved, good urine output. Wheezing: ? due to airway inflammation, edema, although CXR unremarkable. Plan: Fluids per surgery, hospitalist Probably start lisinopril tomorrow if Cr stable/improved. Nebs for wheezing 06/22/17 15:07 Subjective: C/O "squeaking" with breathing. Feels a bit dyspneic. Starting PO, but poor appetite. Abdomen still quite tender. Objective: Vital Signs Temp Pulse Resp BP Pulse Ox 36.6 C 107 H 30 H 160/67 H 95 06/22/17 12:00 06/22/17 12:09 06/22/17 12:00 06/22/17 12:00 06/22/17 12:09 Microbiology 06/20/17 15:45 Gram Stain - Final Peritoneal Fluid - Aspirate Laboratory Results 06/22/17 06:10 06/22/17 06:10 06/21/17 06/22/17 06/23/17 05:59 05:59 05:59 Intake Total 7602 4327 Output Total 245 1259 Balance 7357 3068 PT 16.8 SEC (12.0-15.0) H 06/20/17 13:18 INR 1.34 (0.83-1.16) H 06/20/17 13:18 CXR: Shallow inspiration. Images reviewed by me. Physical Exam - Physical Exam General Appearance: alert, no apparent distress EENT: normal ENT inspection Neck: full range of motion, supple Respiratory: wheezing Cardiac/Chest: regular rate, rhythm, edema Abdomen: normal bowel sounds, non-tender Skin: normal color, warm/dry Extremities: normal inspection Neuro/Psych: alert, normal mood/affect, oriented x 3 ICD10 Worksheet Patient Problems: Problems Problem Status Onset Acute kidney injury Acute Dehydration with hyponatremia Acute Perforation of sigmoid colon due to diverticulitis Acute Pneumoperitoneum Acute Osteoarthritis of left knee Acute Osteoarthritis of right knee Acute Primary osteoarthritis of right hip Acute
[2017-06-22] MEDS: IPRATROPIUM/ALBUTEROL 3 ML DEYVIAL IH PRN ×2 (15:59→22:19)
[2017-06-22] MEDS ORDERED: FUROSEMIDE 20 MG/2 ML VIAL IVP ONE (16:15)
--- NOTE | 2017-06-22 16:24 | HOSPPROG ---
Hospitalist Progress Note Assessment/Plan: * Septic shock - off pressors * Stercoral ulcer with perforation s/p colostomy * Fecal peritonitis -IV meropenem + IV micafungin -repeat CT abd in 2 weeks rule out abscess * ARF - improving -hold lisinopril, HCTZ and celebrex * Obesity BMI 35 * Recent L TKA * SOB - pulm edema vs. wheeze -nebs, IV lasix x 1 -IV albumin x 24 hours rather than IVF Subjective: Feels very SOB Objective: Vital Signs Temp Pulse Resp BP Pulse Ox 36.6 C 103 H 28 H 160/67 H 99 06/22/17 12:00 06/22/17 16:03 06/22/17 16:03 06/22/17 12:00 06/22/17 16:03 Microbiology 06/20/17 15:45 Gram Stain - Final Peritoneal Fluid - Aspirate Laboratory Results 06/22/17 06:10 06/22/17 06:10 06/21/17 06/22/17 06/23/17 05:59 05:59 05:59 Intake Total 7602 4327 200 Output Total 245 1259 250 Balance 7357 3068 -50 PT 16.8 SEC (12.0-15.0) H 06/20/17 13:18 INR 1.34 (0.83-1.16) H 06/20/17 13:18 CXR viewed, my personal interpretation is - negative tele - sinus tachy - Physical Exam Constitutional: no apparent distress, appears nourished, not in pain Cardiovascular: regular rate and rhythym, no murmur, rub, or gallop Respiratory: no respiratory distress, no rales or rhonchi, clear to auscultation Gastrointestinal: normoactive bowel sounds, soft, non-tender abdomen, no palpable masses Skin: no rashes or abrasions, no fluctuance, no induration Neurologic: AAOx3, sensation intact bilaterally Psychiatric: interacting appropriately, not anxious, not encephalopathic, thought process linear ICD10 Worksheet Patient Problems: Problems Problem Status Onset Acute kidney injury Acute Dehydration with hyponatremia Acute Perforation of sigmoid colon due to diverticulitis Acute Pneumoperitoneum Acute Osteoarthritis of left knee Acute Osteoarthritis of right knee Acute Primary osteoarthritis of right hip Acute
[2017-06-22] MEDS: POTASSIUM Cl (KCl) 50 ML IV SCH ×3 (21:20→23:16)
[2017-06-23 04:14] LABS: PLATELET COUNT 274 10^3/uL (150-400)
[2017-06-23] MEDS: ALBUMIN 25% 100 ML IV SCH (05:26)
[2017-06-23] MEDS: traMADol 50 MG TAB PO PRN ×2 (05:28→21:07)
[2017-06-23] MEDS: METOCLOPRAMIDE 10 MG/2 ML VIAL IVP SCH ×4 (05:28→23:25)
[2017-06-23] MEDS: LEVOTHYROXINE 75 MCG TAB PO SCH (05:28)
[2017-06-23] MEDS: ONDANSETRON 4 MG/2 ML VIAL IVP PRN ×3 (05:28→21:07)
[2017-06-23] MEDS: IPRATROPIUM/ALBUTEROL 3 ML DEYVIAL IH PRN ×2 (07:15→12:49)
[2017-06-23] MEDS ORDERED: POTASSIUM CL 10 MEQ TAB PO ONE (07:39)
[2017-06-23] MEDS ORDERED: FUROSEMIDE 20 MG/2 ML VIAL IVP ONE (08:43)
--- NOTE | 2017-06-23 08:47 | SOAPPROG ---
SOAP Progress Note Assessment/Plan: Assessment/Plan: POD#2 s/p laparotomy Improved U/o Cr down to 0.9 baseline Levophed off TLC RIJ site c/d RRR (tahcy) Diminished bilat Abd softly distended. Ostomy viable. some gas/bowel sweat Peritoneal cx E coli x2 gm stain yeast/gm +/- jay sensitive Blood cx neg x36hr Clear liq diet OOB CXR will likely show atelectasis and overload due to resuscitation Lasix given Continue Meropenam as appropriate Kae coverage with micofungin Still tachy with leucocytosis (SIRS) Hypertensive restart BP meds Transfer to floor 06/21/17 00:26 06/21/17 07:38 06/22/17 08:40 06/23/17 08:44 Objective: Vital Signs Temp Pulse Resp BP Pulse Ox 36.9 C 105 H 20 162/74 H 95 06/23/17 07:30 06/23/17 07:30 06/23/17 07:30 06/23/17 07:30 06/23/17 07:30 Microbiology 06/20/17 15:45 Gram Stain - Final Peritoneal Fluid - Aspirate Laboratory Results 06/23/17 04:00 06/23/17 04:00 06/22/17 06/23/17 06/24/17 05:59 05:59 05:59 Intake Total 4327 1385 Output Total 1259 1600 Balance 3068 -215 PT 16.8 SEC (12.0-15.0) H 06/20/17 13:18 INR 1.34 (0.83-1.16) H 06/20/17 13:18 ICD10 Worksheet Patient Problems: Problems Problem Status Onset Acute kidney injury Acute Dehydration with hyponatremia Acute Perforation of sigmoid colon due to diverticulitis Acute Pneumoperitoneum Acute Osteoarthritis of left knee Acute Osteoarthritis of right knee Acute Primary osteoarthritis of right hip Acute
[2017-06-23] MEDS ORDERED: HYDROmorphONE/DILAUDID 1 MG/ML INJ IVP PRN (09:11)
[2017-06-23] MEDS: HYDROCHLOROTHIAZIDE 25 MG TAB PO SCH (09:16)
[2017-06-23] MEDS: ENOXAPARIN 30 MG/0.3 ML SYR SC SCH ×2 (09:16→09:54)
[2017-06-23] MEDS: LISINOPRIL 10 MG TAB PO SCH (09:16)
[2017-06-23] MEDS ORDERED: HYDROmorphone HCL/NS 0.5 MG/ML SYR IVP PRN (09:22)
[2017-06-23] MEDS: MICAFUNGIN NA 100 MG in NS 100 ML IV SCH (10:19)
[2017-06-23] MEDS: ENOXAPARIN 40 MG/0.4 ML SYR SC SCH (10:19)
[2017-06-23] MEDS: NS IV SCH ×3 (10:20→23:25)
[2017-06-23] MEDS: MEROPENEM IV SCH ×3 (10:20→23:25)
--- NOTE | 2017-06-23 12:07 | WOCRNPDOC ---
[facility] Advanced Assessment Note - Colostomy Assessment, Advanced Left Lower Abdomen Colostomy Stoma Colostomy Appliance Intact: Yes Colostomy Appliance Currently in Use: Two Piece Flat, 2 3/4, Cut to Fit Stoma Color: [place] Stoma Turgor: Moist, Shiny Stoma Shape: Round Stoma Height: Protruding Colostomy Effluent: None Colostomy Comment/Treatment Details: Initial contact and teaching done with patient and her daughter. A large portion of the teaching revolved around pouch selection and pouch features. One piece coloplast cut to fit was chosen and will be ordered via [employer]. Emptying pouch reviewed as well as a basic pouch change with a template creation. Patient measures at 38 mm currently ( 04/12). onsite health coach will round again tomorrow for bedside pouch change. Patient declined all secure start programs.
--- NOTE | 2017-06-23 14:11 | PCMIDPN ---
Assessment/Plan: Assessment/Plan: 1. Feculent peritonitis afater bowel perforation: - s/p surgeyr on 06/20/17 - so far with ESBl e.coli and E. coli growing. place in contact isolation - covered with Merem and micafungin - wbc trending down. afebrile. creatinine, lft stable Subjective: afebrile. icu. feeling better. less abd discomfort. mld sob. on clear ligquids Objective: Vital Signs Temp Pulse Resp BP Pulse Ox 36.9 C 95 20 162/74 H 100 06/23/17 07:30 06/23/17 12:52 06/23/17 12:52 06/23/17 07:30 06/23/17 12:52 Microbiology 06/20/17 15:45 Gram Stain - Final Peritoneal Fluid - Aspirate Laboratory Results 06/23/17 13:50 06/23/17 04:00 06/22/17 06/23/17 06/24/17 05:59 05:59 05:59 Intake Total 4327 1385 Output Total 1259 1600 Balance 3068 -215 - Physical Exam General Appearance: alert, no apparent distress Respiratory: lungs clear Cardiac/Chest: regular rate, rhythm Extremities: No swelling Abdomen: other (ana trickle, abd distended, colostomy noted. midline surgical jerilyn noted without erythema, or drainage. ) Pelvic Exam: torres Skin: No erythema ICD10 Worksheet Patient Problems: Problems Problem Status Onset Acute kidney injury Acute Dehydration with hyponatremia Acute Perforation of sigmoid colon due to diverticulitis Acute Pneumoperitoneum Acute Osteoarthritis of left knee Acute Osteoarthritis of right knee Acute Primary osteoarthritis of right hip Acute
--- NOTE | 2017-06-23 16:31 | HOSPPROG ---
Hospitalist Progress Note Assessment/Plan: * Septic shock - off pressors * Stercoral ulcer with perforation s/p colostomy * Fecal peritonitis - ESBL E. coli -IV meropenem + IV micafungin -repeat CT abd in 2 weeks rule out abscess * ARF - improving -hold lisinopril, HCTZ and celebrex * Morbid obesity BMI 41 * Recent L TKA Subjective: no new complaints Objective: Vital Signs Temp Pulse Resp BP Pulse Ox 36.9 C 95 20 162/74 H 100 06/23/17 07:30 06/23/17 12:52 06/23/17 12:52 06/23/17 07:30 06/23/17 12:52 Microbiology 06/20/17 15:45 Gram Stain - Final Peritoneal Fluid - Aspirate Laboratory Results 06/23/17 13:50 06/23/17 04:00 06/22/17 06/23/17 06/24/17 05:59 05:59 05:59 Intake Total 4327 1385 Output Total 1259 1600 850 Balance 3068 -215 -850 PT 16.8 SEC (12.0-15.0) H 06/20/17 13:18 INR 1.34 (0.83-1.16) H 06/20/17 13:18 d/w DR. weaver - doing better tele reviewed - NSR - Physical Exam Constitutional: no apparent distress, appears nourished, not in pain Cardiovascular: regular rate and rhythym, no murmur, rub, or gallop Respiratory: no respiratory distress, no rales or rhonchi, clear to auscultation Gastrointestinal: normoactive bowel sounds, soft, non-tender abdomen, no palpable masses Skin: no rashes or abrasions, no fluctuance, no induration Neurologic: AAOx3, sensation intact bilaterally Psychiatric: interacting appropriately, not anxious, not encephalopathic, thought process linear ICD10 Worksheet Patient Problems: Problems Problem Status Onset Acute kidney injury Acute Dehydration with hyponatremia Acute Perforation of sigmoid colon due to diverticulitis Acute Pneumoperitoneum Acute Osteoarthritis of left knee Acute Osteoarthritis of right knee Acute Primary osteoarthritis of right hip Acute
--- NOTE | 2017-06-23 17:15 | ASMTCMCOM ---
CM Note CM Note Notes: Talked to patient and daughter about SNF Rehabs. Patient has been to [facility] and didn't want to return there. Her father was at [facility] and she was not interested in going there. [place] [facility], encouraged her to visit [facility] in [place]. Will send a referral to [facility]. Date Signed: 06/23/2017 11:15 AM Electronically Signed By:Lay Gibson LCSW
--- NOTE | 2017-06-23 21:02 | SOAPPROG ---
SOAP Progress Note Assessment/Plan: Assessment: Pt was seen by me today. I did her left TKA about 3 weeks ago. She has had some abd pain and constipation since surgery. Admitted over the weekend with a perforated colon. Her left knee looks good. No evidence of infection. Plan: Allow her to resume her TKA rehab as soon as her overall condition allows. Thanks for notifying me of her admission. 06/23/17 20:59 Objective: Vital Signs Temp Pulse Resp BP Pulse Ox 37.2 C 98 14 152/72 H 100 06/23/17 19:53 06/23/17 19:53 06/23/17 19:53 06/23/17 19:53 06/23/17 19:53 Microbiology 06/20/17 15:45 Gram Stain - Final Peritoneal Fluid - Aspirate Laboratory Results 06/23/17 13:50 06/23/17 04:00 06/22/17 06/23/17 06/24/17 05:59 05:59 05:59 Intake Total 4327 1385 750 Output Total 1259 1600 1825 Balance 3068 -215 -1075 PT 16.8 SEC (12.0-15.0) H 06/20/17 13:18 INR 1.34 (0.83-1.16) H 06/20/17 13:18 ICD10 Worksheet Patient Problems: Problems Problem Status Onset Acute kidney injury Acute Dehydration with hyponatremia Acute Perforation of sigmoid colon due to diverticulitis Acute Pneumoperitoneum Acute Osteoarthritis of left knee Acute Osteoarthritis of right knee Acute Primary osteoarthritis of right hip Acute
[2017-06-24] MEDS: METOCLOPRAMIDE 10 MG/2 ML VIAL IVP SCH ×4 (05:16→23:29)
[2017-06-24] MEDS: LEVOTHYROXINE 75 MCG TAB PO SCH (05:16)
[2017-06-24] MEDS: traMADol 50 MG TAB PO PRN ×3 (05:33→23:29)
[2017-06-24 05:39] LABS: PLATELET COUNT 322 10^3/uL (150-400)
[2017-06-24] MEDS: LISINOPRIL 10 MG TAB PO SCH (08:33)
[2017-06-24] MEDS: HYDROCHLOROTHIAZIDE 25 MG TAB PO SCH (08:33)
[2017-06-24] MEDS: ENOXAPARIN 40 MG/0.4 ML SYR SC SCH (08:33)
--- NOTE | 2017-06-24 08:50 | HOSPPROG ---
Hospitalist Progress Note Assessment/Plan: #Septic shock: resolved. #Colonic perforation with fecal peritonitis -cultures with 2 strains E Coli, ESBL. Ertapenem, change to Fluconazole #PABLO: resolved #HTN: resume CHERRI, HCTZ #Hypothyroidism: LT4 #Recent Left TKA: no e/o infection #Acute blood loss anemia: H/H stable #Heartburn: Tums #PABLO: resolved #Hypokalemia: replete #Diet: regular #Disp: cont inpatient admission for IV abx, PT/OT Subjective: heartburn this morning. No N/V Objective: Vital Signs Temp Pulse Resp BP Pulse Ox 36.8 C 95 28 H 166/80 H 91 L 06/24/17 07:50 06/24/17 07:50 06/24/17 07:50 06/24/17 07:50 06/24/17 07:50 Microbiology 06/20/17 15:45 Gram Stain - Final Peritoneal Fluid - Aspirate Laboratory Results 06/24/17 05:25 06/24/17 05:25 06/23/17 06/24/17 06/25/17 05:59 05:59 05:59 Intake Total 1385 1065 Output Total 1600 2275 Balance -215 -1210 PT 16.8 SEC (12.0-15.0) H 06/20/17 13:18 INR 1.34 (0.83-1.16) H 06/20/17 13:18 - Time Spent With Patient Time Spent with Patient: greater than 35 minutes Time Spent with Patient: Greater than 35 minutes spent on this patients care, greater than 50% of time spent counseling, educating, and coordinating care regarding the above mentioned plan. - Physical Exam Constitutional: obese Eyes: PERRL Ears, Nose, Mouth, Throat: moist mucous membranes Cardiovascular: regular rate and rhythym Respiratory: no respiratory distress Gastrointestinal: other (ostomy with brown stool, surgical incision with mild serrosang drainage distal portion) Genitourinary: no bladder fullness Skin: warm Musculoskeletal: other (left knee surgical incision healing well. No e/o infection) Neurologic: AAOx3, CN II-XII Intact Psychiatric: interacting appropriately ICD10 Worksheet Patient Problems: Problems Problem Status Onset Acute kidney injury Acute Dehydration with hyponatremia Acute Perforation of sigmoid colon due to diverticulitis Acute Pneumoperitoneum Acute Osteoarthritis of left knee Acute Osteoarthritis of right knee Acute Primary osteoarthritis of right hip Acute
--- NOTE | 2017-06-24 09:25 | SOAPPROG ---
SOAP Progress Note Assessment/Plan: Assessment/Plan: POD#3 s/p laparotomy Negative fluid balance (-1200) Cr down to 0.8 Hypertensive Lisinopril restarted ESBL Ecoli in peritoneal fluid meropenam sensitive. Blood cx negative Increasing but min ostomy output C/o heartburn TLC RIJ site c/d RRR (tahcy) Diminished bilat Abd softly distended. Ostomy viable. some gas/bowel sweat Wound drainage will take out some jerilyn later today WBC 11 (no shift) Slowly improving Adv to reg diet as tolerated OOB Lasix given yesterday Continue Meropenam as appropriate Kae coverage with micofungin Still tachy with leucocytosis (SIRS) Hypertensive restarted BP meds Add pepcid Transfer to floor 06/24/17 09:18 Objective: Vital Signs Temp Pulse Resp BP Pulse Ox 36.8 C 95 28 H 166/80 H 91 L 06/24/17 07:50 06/24/17 07:50 06/24/17 07:50 06/24/17 07:50 06/24/17 07:50 Microbiology 06/20/17 15:45 Gram Stain - Final Peritoneal Fluid - Aspirate Laboratory Results 06/24/17 05:25 06/24/17 05:25 06/23/17 06/24/17 06/25/17 05:59 05:59 05:59 Intake Total 1385 1065 Output Total 1600 2275 Balance -215 -1210 PT 16.8 SEC (12.0-15.0) H 06/20/17 13:18 INR 1.34 (0.83-1.16) H 06/20/17 13:18 ICD10 Worksheet Patient Problems: Problems Problem Status Onset Acute kidney injury Acute Dehydration with hyponatremia Acute Perforation of sigmoid colon due to diverticulitis Acute Pneumoperitoneum Acute Osteoarthritis of left knee Acute Osteoarthritis of right knee Acute Primary osteoarthritis of right hip Acute
--- NOTE | 2017-06-24 10:37 | PCMIDPN ---
Assessment/Plan: Assessment/Plan: * Sepsis due to colonic perforation with fecal peritonitis: Significant clinical improvement. Culture showing growth of 2 species of E coli, 1 of which is an ESBL producing organism. No Pseudomonas isolated. Will transition meropenem to ertapenem 1 g IV daily given that creatinine has normalized. Will change micafungin to fluconazole. Plan 2 weeks of IV therapy for fecal peritonitis. Should be able to transition fluconazole to oral if tolerate p.o. intake. Plan repeat imaging over time to ensure no evolution to abdominal abscess which is a high risk in the setting of fecal peritonitis. Epidemiology and transmission of ESBL discussed with patient and daughter. * Status post knee replacement: No signs or symptoms of infection with intact incision line. 06/24/17 10:34 06/24/17 10:37 Subjective: Patient feels significantly improved with decreased abdominal pain. Objective: Vital Signs Temp Pulse Resp BP Pulse Ox 36.8 C 95 28 H 166/80 H 91 L 06/24/17 07:50 06/24/17 07:50 06/24/17 07:50 06/24/17 07:50 06/24/17 07:50 Microbiology 06/20/17 15:45 Gram Stain - Final Peritoneal Fluid - Aspirate Laboratory Results 06/24/17 05:25 06/24/17 05:25 06/23/17 06/24/17 06/25/17 05:59 05:59 05:59 Intake Total 1385 1065 Output Total 1600 2275 Balance -215 -1210 Meropenem # 3 Micafungin # 3 Abdominal cultures with E coli x2, 1 species ESBL Blood cultures x2 no growth - Physical Exam General Appearance: alert, no apparent distress EENT: No scleral icterus, No thrush Respiratory: lungs clear, No respiratory distress Cardiac/Chest: regular rate, rhythm, other (Right subclavian line without erythema or tenderness) Extremities: No inflammation Abdomen: non-tender, other (Midline incision intact with scant serous drainage inferiorly), No distended Skin: No rash - Time Spent With Patient Time Spent with Patient: greater than 35 minutes Time Spent with Patient: Greater than 35 minutes spent on this patients care, greater than 50% of time spent counseling, educating, and coordinating care regarding the above mentioned plan. ICD10 Worksheet Patient Problems: Problems Problem Status Onset Acute kidney injury Acute Dehydration with hyponatremia Acute Perforation of sigmoid colon due to diverticulitis Acute Pneumoperitoneum Acute Osteoarthritis of left knee Acute Osteoarthritis of right knee Acute Primary osteoarthritis of right hip Acute
[2017-06-24] MEDS ORDERED: CALCIUM CARBONATE 500 MG CHEWABLE TAB PO PRN (10:39)
[2017-06-24] MEDS: FAMOTIDINE 20 MG TAB PO SCH ×2 (11:21→22:29)
[2017-06-24] MEDS: ERTAPENEM 1 GM VIAL IV SCH (11:26)
[2017-06-24] MEDS: FLUCONAZOLE/NaCl 200 ML IV SCH (11:32)
[2017-06-24] MEDS ORDERED: POTASSIUM CL 20 MEQ TAB PO ONE (12:18)
[2017-06-24] MEDS ORDERED: POTASSIUM CL 10 MEQ TAB PO ONE (12:34)
[2017-06-24] MEDS: hydrALAZINE 20 MG/ML VIAL IVP PRN (19:15)
[2017-06-24] MEDS: IPRATROPIUM/ALBUTEROL 3 ML DEYVIAL IH PRN (19:53)
[2017-06-25] MEDS: IPRATROPIUM/ALBUTEROL 3 ML DEYVIAL IH PRN ×3 (05:20→20:44)
[2017-06-25] MEDS: METOCLOPRAMIDE 10 MG/2 ML VIAL IVP SCH ×3 (06:28→17:45)
[2017-06-25] MEDS: LEVOTHYROXINE 75 MCG TAB PO SCH (06:28)
[2017-06-25] MEDS: traMADol 50 MG TAB PO PRN ×2 (06:28→21:38)
[2017-06-25] MEDS: ENOXAPARIN 40 MG/0.4 ML SYR SC SCH (09:11)
[2017-06-25] MEDS: HYDROCHLOROTHIAZIDE 25 MG TAB PO SCH (09:12)
[2017-06-25] MEDS: LISINOPRIL 10 MG TAB PO SCH (09:15)
[2017-06-25] MEDS: FAMOTIDINE 20 MG TAB PO SCH ×2 (09:16→21:38)
[2017-06-25] MEDS ORDERED: ALTEPLASE 2 MG VIAL IVP PRN (10:10)
[2017-06-25] MEDS: FLUCONAZOLE/NaCl 200 ML IV SCH (10:23)
[2017-06-25] MEDS: ERTAPENEM 1 GM VIAL IV SCH (10:23)
--- NOTE | 2017-06-25 12:38 | ASMTCMCOM ---
CM Note CM Note Notes: Met w/pt and daughter to discuss dc plan which is still to go [facility] She would like to go to [facility]; left voicemail for Dagmar at [facility]; pt would like to meet w/Dagmar here at [facility] if possible. Ostomy supplies order form at front of chart and was faxed yesterday. CM will follow. Date Signed: 06/25/2017 12:37 PM Electronically Signed By:Lacey Larsen RN
--- NOTE | 2017-06-25 14:21 | HOSPPROG ---
Hospitalist Progress Note Assessment/Plan: #Septic shock: resolved. #Colonic perforation with fecal peritonitis -cultures with 2 strains E Coli, ESBL. Ertapenem, change to Fluconazole. Will need 2 weeks abx #Hypertensive urgency: situational last night with ostomy leaking. Improved today. If remains high, up-titrate ACEI. Cont HCTZ, PRN hydral #PABLO: resolved #Hypothyroidism: LT4 #Recent Left TKA: no e/o infection #Acute blood loss anemia: H/H stable #Heartburn: Tums #PABLO: resolved #Hypokalemia: resolved #Diet: regular #Disp: cont inpatient admission for IV abx, PT/OT Subjective: slept very well last night. No abd pain Objective: Vital Signs Temp Pulse Resp BP Pulse Ox 36.4 C 87 18 150/81 H 94 06/25/17 13:41 06/25/17 13:41 06/25/17 13:41 06/25/17 13:41 06/25/17 13:41 Microbiology 06/20/17 15:45 Gram Stain - Final Peritoneal Fluid - Aspirate Laboratory Results 06/25/17 06:20 06/25/17 06:20 06/24/17 06/25/17 06/26/17 05:59 05:59 05:59 Intake Total 1065 900 Output Total 2275 1020 50 Balance -1210 -120 -50 PT 16.8 SEC (12.0-15.0) H 06/20/17 13:18 INR 1.34 (0.83-1.16) H 06/20/17 13:18 - Time Spent With Patient Time Spent with Patient: greater than 25 minutes Time Spent with Patient: Greater than 25 minutes spent on this patients care, greater than 50% of time spent counseling, educating, and coordinating care regarding the above mentioned plan. - Physical Exam Constitutional: no apparent distress Eyes: PERRL Ears, Nose, Mouth, Throat: moist mucous membranes Cardiovascular: regular rate and rhythym Respiratory: no respiratory distress Gastrointestinal: normoactive bowel sounds, other (ostomy with brown stool) Genitourinary: no bladder fullness Skin: warm Musculoskeletal: generalized weakness, other (left knee incision healing well) Neurologic: AAOx3, CN II-XII Intact Psychiatric: interacting appropriately ICD10 Worksheet Patient Problems: Problems Problem Status Onset Acute kidney injury Acute Dehydration with hyponatremia Acute Perforation of sigmoid colon due to diverticulitis Acute Pneumoperitoneum Acute Osteoarthritis of left knee Acute Osteoarthritis of right knee Acute Primary osteoarthritis of right hip Acute
--- NOTE | 2017-06-25 15:25 | WOCRNPDOC ---
[facility] Advanced Assessment Note - Colostomy Assessment, Advanced Left Lower Abdomen Colostomy Stoma Colostomy Appliance Intact: Yes Colostomy Appliance Currently in Use: Two Piece Flat, 2 1/4, Cut to Fit Stoma Color: Red Stoma Turgor: Moist Stoma Shape: Oval Stoma Height: Protruding Mucocutaneus Junction: Intact Colostomy Effluent: Liquid, Mixed Fecal/Serosangenous Colostomy Size - Head-to-Toe Length X Width X Depth (cm): [id number] Colostomy Details: End Peristomal Skin: Intact Colostomy Comment/Treatment Details: Day 2 education materials dropped off and reviewed. Patient expressed interest in outpatient wound clinic, and encouraged to set up appointment for follow up care. Patient was attentive and asked appropriate questions, with 50% hands on participation. The options for ostomy appliances were reviewed, and patient confirmed she would like a one piece system. Direct ostomy education provided re: removing appliance with adhesive remover, gentle cleansing of stoma, measuring stoma and making template, and placement of wafer around stoma. Education also provided regarding connecting pouch to wafer, emptying the pouch, and the importance of re-measuring the stoma throughout the healing process. Patient questions addressed and answered concerning frequency of changes, and when to call her provider or seek treatment at the outpatient clinic. Patient will be discharging to [facility]. Daughter in room for ostomy change.
--- NOTE | 2017-06-25 16:25 | PCMIDPN ---
Assessment/Plan: Assessment/Plan: * Sepsis due to colonic perforation with fecal peritonitis: Significant clinical improvement. Culture showing growth of 2 species of E coli, 1 of which is an ESBL producing organism. Continue ertapenem and fluconazole (E seen on Gram stain) with anticipated 2 week course of therapy in the setting of fecal peritonitis. Plan to transition fluconazole to p.o. Therapy tomorrow if continued tolerance of oral intake. Will place PICC line today anticipating outpatient antibiotic therapy. Also will allow for removal of subclavian triple -lumen catheter. * Status post knee replacement: No signs or symptoms of infection with intact incision line. Begin PT and OT. 06/25/17 16:22 06/25/17 16:24 Subjective: Patient feels significantly improved. Ate a bowl of oatmeal without difficulty this morning. Objective: Vital Signs Temp Pulse Resp BP Pulse Ox 36.8 C 81 16 116/73 92 06/25/17 15:28 06/25/17 15:28 06/25/17 15:28 06/25/17 15:28 06/25/17 15:28 Microbiology 06/20/17 15:45 Gram Stain - Final Peritoneal Fluid - Aspirate Laboratory Results 06/25/17 06:20 06/25/17 06:20 06/24/17 06/25/17 06/26/17 05:59 05:59 05:59 Intake Total 1065 900 Output Total 2275 1020 1150 Balance -1210 -120 -1150 Ertapenem # 4 Fluconazole # 2 (antifungal # 4) Blood cultures x2 no growth - Physical Exam General Appearance: alert, no apparent distress EENT: No scleral icterus, No thrush Respiratory: lungs clear, No respiratory distress Cardiac/Chest: regular rate, rhythm Extremities: other (Left knee incision intact without erythema or tenderness) Abdomen: non-tender, No distended ICD10 Worksheet Patient Problems: Problems Problem Status Onset Acute kidney injury Acute Dehydration with hyponatremia Acute Perforation of sigmoid colon due to diverticulitis Acute Pneumoperitoneum Acute Osteoarthritis of left knee Acute Osteoarthritis of right knee Acute Primary osteoarthritis of right hip Acute
--- NOTE | 2017-06-25 16:51 | SOAPPROG ---
SOAP Progress Note Assessment/Plan: Assessment/Plan: POD#3 s/p laparotomy Negative fluid balance (-1200) Cr down to 0.8 Hypertensive Lisinopril restarted ESBL Ecoli in peritoneal fluid. Blood cx negative Increasing ostomy output C/o heartburn TLC RIJ site c/d RRR (tahcy) Diminished bilat Abd softly distended. Ostomy viable. some gas/bowel sweat Wound drainage with movement WBC 10 (no shift) Slowly improving Adv to reg diet as tolerated OOB Continue Ertapenam as appropriate Kae coverage with fluconazole Still tachy with leucocytosis (SIRS) Hypertensive restarted BP meds Add pepcid 06/24/17 09:18 06/25/17 16:49 Objective: Vital Signs Temp Pulse Resp BP Pulse Ox 36.8 C 81 16 116/73 92 06/25/17 15:28 06/25/17 15:28 06/25/17 15:28 06/25/17 15:28 06/25/17 15:28 Microbiology 06/20/17 15:45 Gram Stain - Final Peritoneal Fluid - Aspirate Laboratory Results 06/25/17 06:20 06/25/17 06:20 06/24/17 06/25/17 06/26/17 05:59 05:59 05:59 Intake Total 1065 900 Output Total 2275 1020 1150 Balance -1210 -120 -1150 PT 16.8 SEC (12.0-15.0) H 06/20/17 13:18 INR 1.34 (0.83-1.16) H 06/20/17 13:18 ICD10 Worksheet Patient Problems: Problems Problem Status Onset Acute kidney injury Acute Dehydration with hyponatremia Acute Perforation of sigmoid colon due to diverticulitis Acute Pneumoperitoneum Acute Osteoarthritis of left knee Acute Osteoarthritis of right knee Acute Primary osteoarthritis of right hip Acute
[2017-06-26] MEDS: METOCLOPRAMIDE 10 MG/2 ML VIAL IVP SCH ×5 (00:11→23:44)
[2017-06-26] MEDS: traMADol 50 MG TAB PO PRN ×3 (05:16→22:30)
[2017-06-26] MEDS: LEVOTHYROXINE 75 MCG TAB PO SCH (05:16)
[2017-06-26] MEDS: ERTAPENEM 1 GM VIAL IV SCH (07:40)
[2017-06-26] MEDS: ENOXAPARIN 40 MG/0.4 ML SYR SC SCH (07:40)
[2017-06-26] MEDS: HYDROCHLOROTHIAZIDE 25 MG TAB PO SCH (07:41)
[2017-06-26] MEDS: LISINOPRIL 10 MG TAB PO SCH (07:41)
[2017-06-26] MEDS: FAMOTIDINE 20 MG TAB PO SCH ×2 (07:41→20:21)
[2017-06-26] MEDS: FLUCONAZOLE/NaCl 200 ML IV SCH (07:43)
--- NOTE | 2017-06-26 10:39 | PCMIDPN ---
Assessment/Plan: 1. Sepsis/peritonitis status post colonic perforation with fecal contamination: As outlined by Dr. Wen, the patient had 2 different types of E coli, 1 of which was an ESBL. She also had 3+ yeast on Gram stain, hence the addition of fluconazole. Will change fluconazole to 400 mg p.o. Daily. Continue ertapenem x9 more days. Per General surgery, will likely go to care home facility on Thursday. Subjective: In good spirits, sitting up in chair. No nausea or vomiting. Starting to tolerate p.o.. Objective: Vital Signs Ertapenem 1 g IV daily day 06/22 Fluconazole day 3 (anti fungal day 5) T-max 37.3 degrees Temp Pulse Resp BP Pulse Ox 37.1 C 90 16 167/89 H 96 06/26/17 07:58 06/26/17 07:58 06/26/17 07:58 06/26/17 07:58 06/26/17 07:58 Microbiology 06/21/17 00:30 Blood Culture - Final Blood 06/20/17 18:34 Blood Culture - Final Blood 06/20/17 15:45 Gram Stain - Final Peritoneal Fluid - Aspirate Laboratory Results 06/25/17 06:20 06/25/17 06:20 06/25/17 06/26/17 06/27/17 05:59 05:59 05:59 Intake Total 900 250 Output Total 1020 1550 200 Balance -120 -1300 -200 Perineal cultures with 2 types of E coli, 1 an ESBL Blood cultures negative No yeast has grown. - Physical Exam General Appearance: alert, no apparent distress, obese EENT: pharynx normal, No thrush Respiratory: other (Diminished breath sounds at bases, otherwise clear. Poor inspiratory effort.) Cardiac/Chest: regular rate, rhythm, No systolic murmur Extremities: other (Left knee incision clean, dry, intact with full mobility and no evidence of erythema or tenderness.) Abdomen: other (Obese. Lower pole of the incision is draining a small amount of serosanguineous fluid. No significant maria l-incisional erythema or tenderness. Ostomy is fine. Bag is empty.) Skin: other (PICC line left upper extremity looks fine. Triple-lumen catheter has been removed. No rash.), No rash ICD10 Worksheet Patient Problems: Problems Problem Status Onset Acute kidney injury Acute Dehydration with hyponatremia Acute Perforation of sigmoid colon due to diverticulitis Acute Pneumoperitoneum Acute Osteoarthritis of left knee Acute Osteoarthritis of right knee Acute Primary osteoarthritis of right hip Acute
--- NOTE | 2017-06-26 13:02 | SOAPPROG ---
SOAP Progress Note Assessment/Plan: Assessment/Plan: POD#3 s/p laparotomy Negative fluid balance (-1200) Cr down to 0.8 Hypertensive Lisinopril restarted ESBL Ecoli in peritoneal fluid. Blood cx negative Increasing ostomy output C/o heartburn TLC RIJ site c/d RRR (tahcy) Diminished bilat Abd softly distended. Ostomy viable. some gas/bowel sweat Wound drainage with movement WBC 10 (no shift) Slowly improving Adv to reg diet as tolerated OOB Continue Ertapenam as appropriate day 7 of 14 Kae coverage with fluconazole Hypertensive restarted BP meds Added pepcid Irrigate wound bid with NS 06/24/17 09:18 06/25/17 16:49 06/26/17 13:01 Objective: Vital Signs Temp Pulse Resp BP Pulse Ox 37.1 C 90 16 167/89 H 96 06/26/17 07:58 06/26/17 07:58 06/26/17 07:58 06/26/17 07:58 06/26/17 07:58 Microbiology 06/21/17 00:30 Blood Culture - Final Blood 06/20/17 18:34 Blood Culture - Final Blood 06/20/17 15:45 Gram Stain - Final Peritoneal Fluid - Aspirate Laboratory Results 06/25/17 06:20 06/25/17 06:20 06/25/17 06/26/17 06/27/17 05:59 05:59 05:59 Intake Total 900 250 Output Total 1020 1550 200 Balance -120 -1300 -200 PT 16.8 SEC (12.0-15.0) H 06/20/17 13:18 INR 1.34 (0.83-1.16) H 06/20/17 13:18 ICD10 Worksheet Patient Problems: Problems Problem Status Onset Acute kidney injury Acute Dehydration with hyponatremia Acute Perforation of sigmoid colon due to diverticulitis Acute Pneumoperitoneum Acute Osteoarthritis of left knee Acute Osteoarthritis of right knee Acute Primary osteoarthritis of right hip Acute
--- NOTE | 2017-06-26 13:11 | HOSPPROG ---
Hospitalist Progress Note Assessment/Plan: 72y female with c/o abd pain. First encounter, chart reviewed. Discussed at bedside with Dr Reddy. #Septic shock: resolved. #Colonic perforation with fecal peritonitis -cultures with 2 strains E Coli, ESBL. Ertapenem, change to Fluconazole. Will need 2 weeks abx #Hypertensive urgency: situational last night with ostomy leaking. Improved today. If remains high, up-titrate ACEI. Cont HCTZ, PRN hydral #PABLO: resolved #Hypothyroidism: LT4 #Recent Left TKA: no e/o infection #Acute blood loss anemia: H/H stable #Heartburn: Tums #PABLO: resolved #Hypokalemia: resolved #Diet: regular #Disp: cont inpatient admission for IV abx, PT/OT Subjective: Up in the chair. Feeling better today. Still feels tired and weak. Objective: Vital Signs Temp Pulse Resp BP Pulse Ox 37.1 C 90 16 167/89 H 96 06/26/17 07:58 06/26/17 07:58 06/26/17 07:58 06/26/17 07:58 06/26/17 07:58 Microbiology 06/21/17 00:30 Blood Culture - Final Blood 06/20/17 18:34 Blood Culture - Final Blood 06/20/17 15:45 Gram Stain - Final Peritoneal Fluid - Aspirate Laboratory Results 06/25/17 06:20 06/25/17 06:20 06/25/17 06/26/17 06/27/17 05:59 05:59 05:59 Intake Total 900 250 Output Total 1020 1550 200 Balance -120 -1300 -200 PT 16.8 SEC (12.0-15.0) H 06/20/17 13:18 INR 1.34 (0.83-1.16) H 06/20/17 13:18 - Physical Exam Constitutional: appears nourished, not in pain, obese Eyes: PERRL, anicteric sclera, EOMI Ears, Nose, Mouth, Throat: moist mucous membranes, hearing normal, ears appear normal Cardiovascular: No JVD, No tachycardia, No edema Respiratory: no respiratory distress, no rales or rhonchi, reduced air movement Gastrointestinal: normoactive bowel sounds, tenderness, No ascites Skin: warm, normal color, No mottled Musculoskeletal: normal joint ROM, no joint effusions, generalized weakness Neurologic: AAOx3 Psychiatric: interacting appropriately, not anxious, not encephalopathic, thought process linear ICD10 Worksheet Patient Problems: Problems Problem Status Onset Acute kidney injury Acute Dehydration with hyponatremia Acute Perforation of sigmoid colon due to diverticulitis Acute Pneumoperitoneum Acute Osteoarthritis of left knee Acute Primary osteoarthritis of right hip Acute Osteoarthritis of right knee Acute
--- NOTE | 2017-06-26 16:49 | ASMTCMCOM ---
CM Note CM Note Notes: Gita from [facility] here to see pt, if pt gets off Invanz and Micofungeon they can take her but those medications are too expensive. IMANI spoke with pharmacist pt now off benita and on fluconazole, Invanz may still be an issue though. IMANI w/f. DC Plan: SNF Date Signed: 06/26/2017 04:48 PM Electronically Signed By:Leatha Yan RN
[2017-06-26] MEDS: hydrALAZINE 20 MG/ML VIAL IVP PRN ×2 (17:19→23:49)
[2017-06-26] MEDS: IPRATROPIUM/ALBUTEROL 3 ML DEYVIAL IH PRN (22:50)
[2017-06-27] MEDS: METOCLOPRAMIDE 10 MG/2 ML VIAL IVP SCH ×3 (05:09→18:16)
[2017-06-27] MEDS: LEVOTHYROXINE 75 MCG TAB PO SCH (05:09)
--- NOTE | 2017-06-27 08:08 | HOSPPROG ---
Hospitalist Progress Note Assessment/Plan: 72y female with c/o abd pain. First encounter, chart reviewed. #Septic shock: resolved. #Colonic perforation with fecal peritonitis -cultures with 2 strains E Coli, ESBL. -Ertapenem / x 8 more days, Fluconazole 400 mg po daily -with colostomy in place #Hypertensive urgency -resolved -bp elevated this a.m. & has been elevated throughout her stay, trial of low dose Amlodipine #PABLO: resolved #Hypothyroidism: LT4 #Recent Left TKA: no e/o infection #Acute blood loss anemia: H/H stable #Heartburn: Tums #Hypokalemia: resolved #Diet: regular #Dispo: rehab soon, will check w ID if antibiotics can be changed, the SNF she has requested doesn't use Ertapenem Subjective: Crystal has no complaints, but has questions in regards to dc, care of her colostomy and treatment of her blood pressure. Objective: Vital Signs Temp Pulse Resp BP Pulse Ox 37.2 C 93 16 170/90 H 91 L 06/27/17 07:31 06/27/17 07:31 06/27/17 07:31 06/27/17 07:31 06/27/17 07:31 Microbiology 06/20/17 15:45 Gram Stain - Final Peritoneal Fluid - Aspirate 06/21/17 00:30 Blood Culture - Final Blood 06/20/17 18:34 Blood Culture - Final Blood Laboratory Results 06/25/17 06:20 06/25/17 06:20 06/26/17 06/27/17 06/28/17 05:59 05:59 05:59 Intake Total 250 200 Output Total 1550 600 200 Balance -1300 -400 -200 PT 16.8 SEC (12.0-15.0) H 06/20/17 13:18 INR 1.34 (0.83-1.16) H 06/20/17 13:18 - Physical Exam Constitutional: appears nourished, not in pain, obese Eyes: PERRL Ears, Nose, Mouth, Throat: hearing normal Cardiovascular: regular rate and rhythym Respiratory: no respiratory distress Gastrointestinal: normoactive bowel sounds, other (colostomy w + stool) Skin: warm, normal color Musculoskeletal: generalized weakness Neurologic: AAOx3 Psychiatric: interacting appropriately ICD10 Worksheet Patient Problems: Problems Problem Status Onset Acute kidney injury Acute Dehydration with hyponatremia Acute Perforation of sigmoid colon due to diverticulitis Acute Pneumoperitoneum Acute Osteoarthritis of left knee Acute Osteoarthritis of right knee Acute Primary osteoarthritis of right hip Acute
[2017-06-27] MEDS: LISINOPRIL 10 MG TAB PO SCH (08:09)
[2017-06-27] MEDS: FLUCONAZOLE 100 MG TAB PO SCH (08:09)
[2017-06-27] MEDS: FAMOTIDINE 20 MG TAB PO SCH ×2 (08:10→20:33)
[2017-06-27] MEDS: traMADol 50 MG TAB PO PRN ×2 (08:10→20:33)
[2017-06-27] MEDS: HYDROCHLOROTHIAZIDE 25 MG TAB PO SCH (08:11)
[2017-06-27] MEDS: ENOXAPARIN 40 MG/0.4 ML SYR SC SCH (08:12)
[2017-06-27] MEDS: ERTAPENEM 1 GM VIAL IV SCH (09:56)
[2017-06-27] MEDS: hydrALAZINE 20 MG/ML VIAL IVP PRN (09:56)
--- NOTE | 2017-06-27 14:24 | PCMIDPN ---
Assessment/Plan: #Sepsis due to colonic perforation with fecal peritonitis: Significant clinical improvement. Culture showing growth of 2 species of E coli, 1 of which is an ESBL producing organism. WBC almost normal 2 days ago --Continue ertapenem and fluconazole (yeast seen on Gram stain) --2 week course of therapy , 07/06 stop date --recheck wbc in AM --discussed possible change to FQ with patient and side effect profile. She prefers to stay on ertapenem #Recent L TKA meds ertapenem 1gm IV daily fluconazole 400mg PO daily Microbiology 06/20/17 18:34 Blood Cx(2) neg 06/20/17 15:45 Peritoneal Fluid - Aspirate Anaerobic Culture - Preliminary Escherichia Coli Esbl Escherichia Coli#2 Subjective: minimal abdominal pain but does c/o of a little gas pain +BM Objective: Vital Signs Temp Pulse Resp BP Pulse Ox 37.2 C 93 16 160/83 H 91 L 06/27/17 07:31 06/27/17 07:31 06/27/17 07:31 06/27/17 12:21 06/27/17 07:31 Microbiology 06/20/17 15:45 Gram Stain - Final Peritoneal Fluid - Aspirate Laboratory Results 06/25/17 06:20 06/25/17 06:20 06/26/17 06/27/17 06/28/17 05:59 05:59 05:59 Intake Total 250 200 Output Total 1550 600 200 Balance -1300 -400 -200 - Physical Exam General Appearance: alert, no apparent distress EENT: No thrush Respiratory: lungs clear, No accessory muscle use Neck: supple Cardiac/Chest: regular rate, rhythm, No systolic murmur Extremities: other (L knee incision c/d/i) Abdomen: non-tender, soft Skin: warm/dry, pallor, No rash Neuro/Psych: alert, normal mood/affect, oriented x 3 - Line/s LUE PICC Lines: No drainage, No erythema - Time Spent With Patient Time Spent with Patient: greater than 35 minutes (care coordinated with Leila Tabares NP. Risks of FQ discussed.) Time Spent with Patient: Greater than 35 minutes spent on this patients care, greater than 50% of time spent counseling, educating, and coordinating care regarding the above mentioned plan. ICD10 Worksheet Patient Problems: Problems Problem Status Onset Acute kidney injury Acute Dehydration with hyponatremia Acute Perforation of sigmoid colon due to diverticulitis Acute Pneumoperitoneum Acute Osteoarthritis of left knee Acute Osteoarthritis of right knee Acute Primary osteoarthritis of right hip Acute
--- NOTE | 2017-06-27 16:44 | ASMTCMCOM ---
CM Note CM Note Notes: Updated ID MD & AIR CARGO GROUND CREW SUPERVISOR that [facility] cannot except pt if she is on IV Invanz at time of dc because it is too expensive. Per MILLICENT DALE; pt will need to be on IV Invanz until 07/06. MILLICENT DALE discussed with pt. Pt interested in [facility] or [facility] as well; referrals sent; awaiting response. Pt also interested in possibly returning home with [facility]. Spoke with Denise, at [facility]; referral sent. Per Denise; pt's copay for 7 days of home IV Invanz will be $306.22 (irene subject to change). However, if pt goes to an Outpatient [facility] Infusion Center ( [facility]fusion [facility]) she will have no copay. CM to discuss with pt once we hear back from [facility] & [facility]. Pt also interested in assistance with Colostomy supplies; CM to discuss with computer operations manager tomorrow. CM will follow. Dc plan-TBD Date Signed: 06/27/2017 04:43 PM Electronically Signed By:Moraima Richmond RN
--- NOTE | 2017-06-27 17:33 | SOAPPROG ---
SOAP Progress Note Assessment/Plan: Assessment:no overnight issues. no pain. jesús po. afebrile. bp 170s. comfortable. abd soft. incis clean - less murky drainage. stoma productive. improving. hospitalist to adjust BP meds. continuing ABX per ID reccs. local wound care to abdomen - does not need more jerilyn removed at this time. no other new plans for today. Plan: 06/27/17 17:29 Objective: Vital Signs Temp Pulse Resp BP Pulse Ox 37.1 C 86 16 158/94 H 94 06/27/17 15:56 06/27/17 15:56 06/27/17 15:56 06/27/17 15:56 06/27/17 15:56 Microbiology 06/20/17 15:45 Gram Stain - Final Peritoneal Fluid - Aspirate Laboratory Results 06/25/17 06:20 06/25/17 06:20 06/26/17 06/27/17 06/28/17 05:59 05:59 05:59 Intake Total 250 200 Output Total 1550 600 200 Balance -1300 -400 -200 PT 16.8 SEC (12.0-15.0) H 06/20/17 13:18 INR 1.34 (0.83-1.16) H 06/20/17 13:18 ICD10 Worksheet Patient Problems: Problems Problem Status Onset Acute kidney injury Acute Dehydration with hyponatremia Acute Perforation of sigmoid colon due to diverticulitis Acute Pneumoperitoneum Acute Osteoarthritis of left knee Acute Osteoarthritis of right knee Acute Primary osteoarthritis of right hip Acute
[2017-06-27] MEDS: IPRATROPIUM/ALBUTEROL 3 ML DEYVIAL IH PRN (21:11)
[2017-06-28] MEDS: METOCLOPRAMIDE 10 MG/2 ML VIAL IVP SCH ×4 (00:17→18:23)
[2017-06-28] MEDS: hydrALAZINE 20 MG/ML VIAL IVP PRN ×2 (00:17→22:25)
[2017-06-28] MEDS: LEVOTHYROXINE 75 MCG TAB PO SCH (05:06)
[2017-06-28 05:19] LABS: PLATELET COUNT 277 10^3/uL (150-400)
[2017-06-28] MEDS: HYDROCHLOROTHIAZIDE 25 MG TAB PO SCH (08:15)
[2017-06-28] MEDS: LISINOPRIL 10 MG TAB PO SCH (08:15)
[2017-06-28] MEDS: FLUCONAZOLE 100 MG TAB PO SCH (08:20)
[2017-06-28] MEDS: FAMOTIDINE 20 MG TAB PO SCH ×2 (08:21→21:01)
[2017-06-28] MEDS: ENOXAPARIN 40 MG/0.4 ML SYR SC SCH (08:24)
--- NOTE | 2017-06-28 08:50 | HOSPPROG ---
Hospitalist Progress Note Assessment/Plan: 72y female with c/o abd pain. #Severe sepsis noted on admission -resolved #Colonic perforation with fecal peritonitis -cultures with 2 strains E Coli, ESBL. -Ertapenem, Fluconazole 400 mg po daily -with colostomy in place #Hypertensive urgency -added Amlodipine w some improvement #PABLO: resolved #Hypothyroidism: LT4 #Recent Left TKA: no e/o infection #Acute blood loss anemia: H/H stable #Heartburn: Tums #Hypokalemia: resolved #Diet: regular #Dispo: get EKG for f/u to evaluate QT interval, patient prefers to stay on Ertapenem rather than switching antibiotics. CM looking at rehab. Reviewed her care with PT and [place] With her colostomy and recent knee surgery; she would benefit from rehab. Subjective: Crystal has no c/o pain. Has questions about discharge, care of her colostomy. Objective: Vital Signs Temp Pulse Resp BP Pulse Ox 37.1 C 94 16 159/82 H 92 06/28/17 08:00 06/28/17 08:00 06/28/17 08:00 06/28/17 08:00 06/28/17 08:00 Laboratory Results 06/28/17 05:10 06/25/17 06:20 06/27/17 06/28/17 06/29/17 05:59 05:59 05:59 Intake Total 200 200 Output Total 600 800 Balance -400 -600 PT 16.8 SEC (12.0-15.0) H 06/20/17 13:18 INR 1.34 (0.83-1.16) H 06/20/17 13:18 - Physical Exam Constitutional: appears nourished, not in pain, obese Eyes: PERRL Ears, Nose, Mouth, Throat: hearing normal Cardiovascular: regular rate and rhythym Respiratory: no respiratory distress Gastrointestinal: normoactive bowel sounds Skin: warm, other (left knee w steri strips in place, no drainage, no redness) Neurologic: AAOx3 Psychiatric: interacting appropriately ICD10 Worksheet Patient Problems: Problems Problem Status Onset Acute kidney injury Acute Dehydration with hyponatremia Acute Perforation of sigmoid colon due to diverticulitis Acute Pneumoperitoneum Acute Osteoarthritis of left knee Acute Osteoarthritis of right knee Acute Primary osteoarthritis of right hip Acute
--- NOTE | 2017-06-28 09:55 | SOAPPROG ---
SOAP Progress Note Assessment/Plan: Assessment: no complaints. good po. no stoma issues. avss. comfortable. abd soft. incis clean. no erythema. small serous drainage. to SNF once facility arranged. abx as per ID. excellent GI progress. stoma reversal in 3 months. no overnight issues. no pain. jesús po. afebrile. bp 170s. comfortable. abd soft. incis clean - less murky drainage. stoma productive. improving. hospitalist to adjust BP meds. continuing ABX per ID reccs. local wound care to abdomen - does not need more jerilyn removed at this time. no other new plans for today. Plan: 06/27/17 17:29 06/28/17 09:53 Objective: Vital Signs Temp Pulse Resp BP Pulse Ox 37.1 C 94 16 159/82 H 92 06/28/17 08:00 06/28/17 08:00 06/28/17 08:00 06/28/17 08:00 06/28/17 08:00 Laboratory Results 06/28/17 05:10 06/25/17 06:20 06/27/17 06/28/17 06/29/17 05:59 05:59 05:59 Intake Total 200 200 Output Total 600 800 300 Balance -400 -600 -300 PT 16.8 SEC (12.0-15.0) H 06/20/17 13:18 INR 1.34 (0.83-1.16) H 06/20/17 13:18 ICD10 Worksheet Patient Problems: Problems Problem Status Onset Acute kidney injury Acute Dehydration with hyponatremia Acute Perforation of sigmoid colon due to diverticulitis Acute Pneumoperitoneum Acute Osteoarthritis of left knee Acute Osteoarthritis of right knee Acute Primary osteoarthritis of right hip Acute
[2017-06-28] MEDS: ERTAPENEM 1 GM VIAL IV SCH (10:37)
[2017-06-28] MEDS: traMADol 50 MG TAB PO PRN ×2 (13:23→22:24)
--- NOTE | 2017-06-28 13:48 | CPEKG ---
Heart Rate: 97 RR Interval: 619 P-R Interval: 146 QRSD Interval: 90 QT Interval: 368 QTC Interval: 468 P [place]: 66 QRS [place]: -13 T Wave [place]: 57 EKG Severity - ABNORMAL ECG - EKG Impression: SINUS RHYTHM EKG Impression: BORDERLINE R WAVE PROGRESSION, ANTERIOR LEADS EKG Impression: REPOL ABNRM, PROBABLE ISCHEMIA, ANT-LAT LEADS Electronically Signed By: Frankie Hutchinson 29-Jun-2017 06:07:17
--- NOTE | 2017-06-28 14:31 | PCMIDPN ---
Assessment/Plan: #Sepsis due to colonic perforation with fecal peritonitis s/p L colectomy/ colostomy washout on 06/20: Culture showing growth of 2 species of E coli, 1 of which is an ESBL producing organism. WBC up a little today, but patient clinically stable --Continue ertapenem and fluconazole (yeast seen on Gram stain) --2 week course of therapy , 07/06 stop date --discussed possible change to FQ with patient and side effect profile. She prefers to stay on ertapenem. Also both fluconazole and FQ prolong QT making FQ less favorable choice --consider repeat CT scan if wbc continues to increase #Recent L TKA meds ertapenem 1gm IV daily fluconazole 400mg PO daily Microbiology 06/20/17 18:34 Blood Cx(2) neg 06/20/17 15:45 Peritoneal Fluid - Aspirate Anaerobic Culture - Preliminary Escherichia Coli Esbl Escherichia Coli#2 Subjective: feeling well, eating more no abdominal pain worried about LAUREL Objective: Vital Signs Temp Pulse Resp BP Pulse Ox 37.1 C 94 16 159/82 H 92 06/28/17 08:00 06/28/17 08:00 06/28/17 08:00 06/28/17 08:00 06/28/17 08:00 Laboratory Results 06/28/17 05:10 06/25/17 06:20 06/27/17 06/28/17 06/29/17 05:59 05:59 05:59 Intake Total 200 200 Output Total 600 800 300 Balance -400 -600 -300 General Appearance: alert, no apparent distress EENT: No thrush Resp: No accessory muscle use Extremities: L knee incision c/d/i, B LAUREL 1-2+ Abdomen: non-tender, soft Skin: warm/dry, pallor, No rash Neuro/Psych: alert, normal mood/affect, oriented x 3 LUE PICC: No drainage, No erythema - Time Spent With Patient Time Spent with Patient: greater than 35 minutes (reviewed lab result w patient & daughter, including slight increase in wbc) Time Spent with Patient: Greater than 35 minutes spent on this patients care, greater than 50% of time spent counseling, educating, and coordinating care regarding the above mentioned plan. ICD10 Worksheet Patient Problems: Problems Problem Status Onset Acute kidney injury Acute Dehydration with hyponatremia Acute Perforation of sigmoid colon due to diverticulitis Acute Pneumoperitoneum Acute Osteoarthritis of left knee Acute Osteoarthritis of right knee Acute Primary osteoarthritis of right hip Acute
--- NOTE | 2017-06-28 14:44 | ASMTCMCOM ---
CM Note CM Note Notes: Spoke with FIBREGLASS LAMINATOR & RN; confirmed pt will need SNF at time of dc. Met with pt to discuss. Pt decided she does not want to go to [facility]. [facility] is now her first choice; also interested in [facility] & [facility]. Referrals sent. [facility] & [facility] willing to accept pt. Spoke with Qiana at [facility] regarding IV Invanz; Qiana to confirm [facility] can take pt while she is on IV Invanz; awaiting callback. [facility] unable to except pt because of cost of IV Invanz. CM will follow. Date Signed: 06/28/2017 02:44 PM Electronically Signed By:Moraima Richmond RN
--- NOTE | 2017-06-28 15:07 | PDIAF ---
- Diagnosis Diagnosis: fecal peritonitis w ESBL E coli Code Status: Full Code - Medication Management Discharge Medications: Medications to Continue on Transfer Hydrochlorothiazide [HCTZ (*)] 25 mg PO DAILY 07/13/15 [Last Taken 06/19/17] Lisinopril [Zestril 10 mg (*)] 10 mg PO DAILY 07/13/15 [Last Taken 06/19/17] Acetaminophen [Tylenol 325mg (*)] 650 mg PO Q6HRS tab 06/05/17 [Last Taken Unknown] Aspirin [Aspirin 325 mg (*)] 325 mg PO DAILY tab 06/05/17 [Last Taken 06/16/17] celeCOXIB [Celebrex (*)] 200 mg PO DAILY cap 06/05/17 [Last Taken 06/19/17] traMADol [Ultram 50 mg (*)] 50 mg PO Q6HRS PRN tab 06/05/17 [Last Taken 11:30] Levothyroxine Sodium 75 mcg PO MOTUWETHFRSA 06/20/17 [Last Taken 06/19/17] Levothyroxine Sodium 112.5 mcg PO FARMER 06/20/17 [Last Taken 06/14/17] Ondansetron Odt [Zofran Odt 4 mg (*)] 4 mg PO Q6H PRN 06/20/17 [Last Taken Unknown] Grind Operator Antibiotics: ertapenem 1gm IV daily, Fluconazole 400mg PO Daily Halfway Antibiotic Stop Date: 07/06/17 Discharge Medications: Refer to the Discharge Home Medication list for PRN reason. PICC Care - Routine: Yes - Orders Isolation Type: Contact Isolation - Labs/Radiology CBC w/diff Date: 07/06/17 CMP Date: 07/06/17 Call or Fax Lab and Imaging Results to: Dr. Alexys Wen at fax [phone] - Follow Up Care Current Providers and Referrals: Geovanna Keys MD [Primary Care Provider] - Alexys Wen MD [Medical Doctor] - follow up in 1 week
--- NOTE | 2017-06-28 16:40 | ASMTCMCOM ---
CM Note CM Note Notes: Received phone call from Qiana, at [facility]; willing to except pt. Updates faxed. Qiana will be onsite tomorrow to talk to pt. Pt, pt's daughter, MD & RN updated. CM will continue to follow. Dc plan-[facility] Date Signed: 06/28/2017 04:35 PM Electronically Signed By:Moraima Richmond RN
[2017-06-29] MEDS: METOCLOPRAMIDE 10 MG/2 ML VIAL IVP SCH ×3 (00:07→11:51)
[2017-06-29] MEDS: LEVOTHYROXINE 75 MCG TAB PO SCH (06:25)
[2017-06-29 06:36] LABS: PLATELET COUNT 312 10^3/uL (150-400)
[2017-06-29 08:01] VITALS: BP 160/84
--- NOTE | 2017-06-29 09:56 | HOSPPROG ---
Hospitalist Progress Note Assessment/Plan: 72y female with c/o abd pain. #Severe sepsis noted on admission -resolved #Colonic perforation with fecal peritonitis -cultures with 2 strains E Coli, ESBL. -Ertapenem, Fluconazole 400 mg po daily -with colostomy in place #Hypertensive urgency -added Amlodipine w some improvement #PABLO: resolved #Hypothyroidism: LT4 #Recent Left TKA: no e/o infection #Acute blood loss anemia: H/H stable #Heartburn: Tums #Hypokalemia: resolved #Diet: regular #Dispo: dc to [facility] Subjective: Crystal is feeling well today. Objective: Vital Signs Temp Pulse Resp BP Pulse Ox 37.1 C 91 16 160/84 H 92 06/29/17 07:58 06/29/17 07:58 06/29/17 07:58 06/29/17 07:58 06/29/17 07:58 Laboratory Results 06/29/17 06:20 06/25/17 06:20 06/28/17 06/29/17 06/30/17 05:59 05:59 05:59 Intake Total 200 750 Output Total 800 1650 200 Balance -600 -900 -200 PT 16.8 SEC (12.0-15.0) H 06/20/17 13:18 INR 1.34 (0.83-1.16) H 06/20/17 13:18 - Physical Exam Constitutional: no apparent distress, appears nourished, not in pain Eyes: PERRL Ears, Nose, Mouth, Throat: hearing normal Cardiovascular: regular rate and rhythym Respiratory: no respiratory distress Gastrointestinal: normoactive bowel sounds, other (colostomy w loose stool) Skin: warm Musculoskeletal: generalized weakness Neurologic: AAOx3 Psychiatric: interacting appropriately ICD10 Worksheet Patient Problems: Problems Problem Status Onset Acute kidney injury Acute Dehydration with hyponatremia Acute Perforation of sigmoid colon due to diverticulitis Acute Pneumoperitoneum Acute Osteoarthritis of left knee Acute Osteoarthritis of right knee Acute Primary osteoarthritis of right hip Acute
[2017-06-29] MEDS: FLUCONAZOLE 100 MG TAB PO SCH (09:58)
[2017-06-29] MEDS: ENOXAPARIN 40 MG/0.4 ML SYR SC SCH (09:58)
[2017-06-29] MEDS: HYDROCHLOROTHIAZIDE 25 MG TAB PO SCH (09:59)
[2017-06-29] MEDS: FAMOTIDINE 20 MG TAB PO SCH (09:59)
[2017-06-29] MEDS: ERTAPENEM 1 GM VIAL IV SCH (09:59)
[2017-06-29] MEDS: LISINOPRIL 10 MG TAB PO SCH (09:59)
--- NOTE | 2017-06-29 10:05 | PDIAF ---
- Diagnosis Diagnosis: fecal peritonitis w ESBL E coli Code Status: Full Code - Medication Management Discharge Medications: Medications to Continue on Transfer Hydrochlorothiazide [HCTZ (*)] 25 mg PO DAILY 07/13/15 [Last Taken 06/19/17] Lisinopril [Zestril 10 mg (*)] 10 mg PO DAILY 07/13/15 [Last Taken 06/19/17] Acetaminophen [Tylenol 325mg (*)] 650 mg PO Q6HRS tab 06/05/17 [Last Taken Unknown] Aspirin [Aspirin 325 mg (*)] 325 mg PO DAILY tab 06/05/17 [Last Taken 06/16/17] celeCOXIB [Celebrex (*)] 200 mg PO DAILY cap 06/05/17 [Last Taken 06/19/17] traMADol [Ultram 50 mg (*)] 50 mg PO Q6HRS PRN tab 06/05/17 [Last Taken 11:30] Levothyroxine Sodium 75 mcg PO MOTUWETHFRSA 06/20/17 [Last Taken 06/19/17] Levothyroxine Sodium 112.5 mcg PO FAMRER 06/20/17 [Last Taken 06/14/17] Ondansetron Odt [Zofran Odt 4 mg (*)] 4 mg PO Q6H PRN 06/20/17 [Last Taken Unknown] Calcium Carbonate [Tums 500MG (*)] 500 mg PO TID PRN tab.chew 06/29/17 [Last Taken Unknown] amLODIPine BESYLATE [Norvasc 2.5 mg (*)] 5 mg PO DAILY tab 06/29/17 [Last Taken Unknown] [employer] Antibiotics: ertapenem 1gm IV daily, Fluconazole 400mg PO Daily [employer] Antibiotic Stop Date: 07/06/17 Discharge Medications: Refer to the Discharge Home Medication list for PRN reason. PICC Care - Routine: Yes - Orders Isolation Type: Contact Isolation Diet Recommendation: no restrictions on diet Diet Texture: Regular Texture Diet Wound Care Instructions: needs abdominal dressing changed tid and prn. Patient needs teaching in regards to colostomy care. Additional Instructions: follow up with Dr Bolivar in one week, call his office for an appointment f/u with Dr Wen as scheduled I resumed your celebrex to help with pain, stay well hydrated while on this medication, it can affect kidney function Norvasc is a new blood pressure medication for you. F/u with Dr Keys in regards to this - Labs/Radiology CBC w/diff Date: 07/06/17 CMP Date: 07/06/17 (q 3days) Call or Fax Lab and Imaging Results to: Dr. Alexys Wen at fax [phone] - Follow Up Care Current Providers and Referrals: Ehsan Bolivar MD [Medical Doctor] - Alexys Wen MD [Medical Doctor] - follow up in 1 week Geovanna Keys MD [Primary Care Provider] -
--- NOTE | 2017-06-29 10:08 | PDIAF ---
- Diagnosis Diagnosis: fecal peritonitis w ESBL E coli Code Status: Full Code - Medication Management Discharge Medications: Medications to Continue on Transfer Hydrochlorothiazide [HCTZ (*)] 25 mg PO DAILY 07/13/15 [Last Taken 06/19/17] Lisinopril [Zestril 10 mg (*)] 10 mg PO DAILY 07/13/15 [Last Taken 06/19/17] Acetaminophen [Tylenol 325mg (*)] 650 mg PO Q6HRS tab 06/05/17 [Last Taken Unknown] traMADol [Ultram 50 mg (*)] 50 mg PO Q6HRS PRN tab 06/05/17 [Last Taken 11:30] Levothyroxine Sodium 75 mcg PO MOTUWETHFRSA 06/20/17 [Last Taken 06/19/17] Levothyroxine Sodium 112.5 mcg PO FARMER 06/20/17 [Last Taken 06/14/17] Ondansetron Odt [Zofran Odt 4 mg (*)] 4 mg PO Q6H PRN 06/20/17 [Last Taken Unknown] Calcium Carbonate [Tums 500MG (*)] 500 mg PO TID PRN tab.chew 06/29/17 [Last Taken Unknown] amLODIPine BESYLATE [Norvasc 2.5 mg (*)] 5 mg PO DAILY tab 06/29/17 [Last Taken Unknown] [employer]oting Machine Mechan[employer] Antibiotics: ertapenem 1gm IV daily, Fluconazole 400mg PO Daily [employer]oting Machine [employer] Antibiotic Stop Date: 07/06/17 Discharge Medications: Refer to the Discharge Home Medication list for PRN reason. PICC Care - Routine: Yes - Orders Isolation Type: Contact Isolation Diet Recommendation: no restrictions on diet Diet Texture: Regular Texture Diet Wound Care Instructions: needs abdominal dressing changed tid and prn. Patient needs teaching in regards to colostomy care. Additional Instructions: follow up with Dr Bolivar in one week, call his office for an appointment f/u with Dr Wen as scheduled check with your pcp as when to resume aspirin and Celebrex - Labs/Radiology CBC w/diff Date: 07/06/17 CMP Date: 07/06/17 (q 3days) Call or Fax Lab and Imaging Results to: Dr. Alexys Wen at fax [phone] - Follow Up Care Current Providers and Referrals: Ehsan Bolivar MD [Medical Doctor] - Alexys Wen MD [Medical Doctor] - follow up in 1 week Geovanna Keys MD [Primary Care Provider] -
--- NOTE | 2017-06-29 10:52 | GDS ---
[f rep st] DISCHARGE SUMMARY DISCHARGE DIAGNOSES: 1. Severe sepsis on admission. 2. Colonic perforation with fecal peritonitis. 3. Hypertensive urgency. 4. Acute kidney injury. 5. Hypothyroidism. 6. Recent left total knee arthroplasty. 7. Acute blood loss anemia. 8. Heartburn. 9. Hypokalemia. CONSULTATION: 1. Dr. Michi Felton. 2. Dr. Alexys Wen. 3. Dr. Boo Rios. HISTORY OF PRESENT ILLNESS: Briefly, the patient is a 72-year-old woman who was admitted on June [address] Bolivar because of left lower quadrant pain. Prior to this, she had undergone a left total k nee arthroplasty on June [address] Rachel. She presented to the emergency room with 1 week of wor sening abdominal pain. In the emergency department, she had leukopenia and a CT scan was performed, which was consistent with a perforated diverticulitis. She was given Invanz and admitted for further care. She had a laparotomy and washout of her abdomen with a diverting sigmoid colostomy, which was performed on 06/20/2017. She was subsequently seen and evaluated by the infectious disease team. H er Gram stain of the abdominal contents was noted to be polymicrobial including yeast. It was noted at that time she had septic shock due to the colonic perforation and fecal peritonitis. She slowly i mproved throughout her stay. Blood cultures were performed which showed no growth. Today, she will be discharged to rehab and further follow up with Dr. Wen and Dr. Bolivar in the outpatient setting. HOSPITAL COURSE: 1. Severe sepsis on admission. This has resolved. 2. Colonic perforation with fecal peritonitis. Her culture showed 2 strains of E coli, one of them being ESBL. She will remain on ertapenem and fluconazole. 3. Hypertensive urgency, having added amlodipine to her home regimen of lisinopril and hydrochloroth iazide, better. 4. Acute kidney injury, resolved. 5. Hypothyroidism on replacement. 6. Recent left TKA. No etiology of infection. 7. Acute blood loss anemia. Her hemoglobin and hematocrit have been stable. 8. Heartburn. Tums. 9. Hypokalemia, resolved. DISCHARGE CONDITION: Stable. Blood pressure is 160/84, heart rate of 91, respiratory rate of 16, O2 saturation on room air 92%, te mperature 37.1 Celsius. MEDICATIONS AT DISCHARGE: Please see the EMR. DISCHARGE INSTRUCTIONS: 1. Follow up with Dr. Bolivar in 1 week and make an appointment to see him. 2. Follow up with Dr. Wen as scheduled. 3. To follow up with her primary care provider as to when to resume her aspirin and her Celebrex. Greater than 30 minutes discharging and coordinating her care. /[id number]
--- NOTE | 2017-06-29 12:16 | SOAPPROG ---
SOAP Progress Note Assessment/Plan: Assessment/Plan: s/p laparotomy Cr down to baseline Hypertensive Lisinopril restarted added amlodipine ESBL Ecoli in peritoneal fluid. Blood cx negative Increasing ostomy output RRR Diminished bilat Abd softly distended. Ostomy viable. some gas/stool Wound drainage with movement resolved c/d WBC 10 (no shift) Slowly improving Adv to reg diet as tolerated OOB Continue Ertapenam as appropriate day 7 of 14 Kae coverage with fluconazole Hypertensive restarted BP meds Added pepcid Transfer to SNF f/u in 1 week in office 06/24/17 09:18 06/25/17 16:49 06/26/17 13:01 06/29/17 12:15 Objective: Vital Signs Temp Pulse Resp BP Pulse Ox 37.1 C 91 16 160/84 H 92 06/29/17 07:58 06/29/17 07:58 06/29/17 07:58 06/29/17 07:58 06/29/17 07:58 Laboratory Results 06/29/17 06:20 06/25/17 06:20 06/28/17 06/29/17 06/30/17 05:59 05:59 05:59 Intake Total 200 750 Output Total 800 1650 200 Balance -600 -900 -200 PT 16.8 SEC (12.0-15.0) H 06/20/17 13:18 INR 1.34 (0.83-1.16) H 06/20/17 13:18 ICD10 Worksheet Patient Problems: Problems Problem Status Onset Acute kidney injury Acute Dehydration with hyponatremia Acute Perforation of sigmoid colon due to diverticulitis Acute Pneumoperitoneum Acute Osteoarthritis of left knee Acute Osteoarthritis of right knee Acute Primary osteoarthritis of right hip Acute
--- NOTE | 2017-06-29 16:12 | ASDISCHSUM ---
Discharge Information Plan Status:SNF Medically Cleared to Leave:06/29/2017 Discharge Date:06/29/2017 02:15 PM D/C Disposition:[facility] Facility ADT D/C Disposition:[facility] Facility Projected Discharge Date:06/29/2017 11:00 AM Transportation at D/C: Discharge Delay Reason: Follow-Up Date:06/29/2017 11:00 AM Discharge Slot: Final Diagnosis:Perforated DVT Placement Information Referral Type:*Jail/SNF Referral ID:[id number] Provider Name:[facility] Address 1:[address] Address 2: City:[place] Selection Factors: State:[place] Referral Type:Home Infusion Referral ID:[id number] Provider Name: Address 1: Phone Number: Address 2: Fax Number: City: [facility] Factors: State: Patient Contact Information Contact Name:PRO Relationship:Daughter Address: City: [facility] Phone: State/Zip Code: Email: Financial Information Financial Class:Medicare Primary Plan Desc:MEDICARE INPATIENT Primary Plan Number:[id number] [facility] Secondary Plan Number:[id number] Assessment Information [facility] CM Progress Note CM Note CM Note Notes: 72yr old female admitted for a perforated DVT went to surgery has a new colostomy. She has a hx of OA-bilateral knees and R hip, HTN, Hypercholesterolemia. Therapies to eval CM to follow for discharge needs. Lives alone . Date Signed: 06/21/2017 12:03 PM Electronically Signed By:Lay Gibson LCSW [facility] CM Progress Note CM Note CM Note Notes: Talked to patient and daughter about SNF Rehabs. Patient has been to [facility] and didn't want to return there. Her father was at [facility] and she was not interested in going there. Daughter [place], encouraged her to visit [facility] in [place]. Will send a referral to [facility]. Date Signed: 06/23/2017 11:15 AM Electronically Signed By:Lay Gibson LCSW [facility] CM Progress Note CM Note CM Note Notes: Met w/pt and daughter to discuss dc plan which is still to go to SN[place] rehab [place]. She would like to go to [facility]; left voicemail for Dagmar at [facility]; pt would like to meet w/Dagmar here at [facility] if possible. Ostomy supplies order form at front of chart and was faxed yesterday. CM will follow. Date Signed: 06/25/2017 12:37 PM Electronically Signed By:Lacey Larsen RN [facility] CM Progress Note CM Note CM Note Notes: Gita from [facility] rehab here to see pt, if pt gets off Invanz and Micofungeon they can take her but those medications are too expensive. CM spoke with pharmacist pt now off benita and on fluconazole, Invanz may still be an issue though. CM w/f. DC Plan: SNF Date Signed: 06/26/2017 04:48 PM Electronically Signed By:Leatha Yan RN [facility] CM Progress Note CM Note CM Note Notes: Updated ID MD & PATROL COMMANDER that [facility] cannot except pt if she is on IV Invanz at time of dc because it is too expensive. Per MILLICENT DALE; pt will need to be on IV Invanz until 07/06. MILLICENT DALE discussed with pt. Pt interested in [facility] or [facility] as well; referrals sent; awaiting response. Pt also interested in possibly returning home with [facility]. Spoke with Denise at [facility]; referral sent. Per Denise; pt's copay for 7 days of home IV Invanz will be $306.22 ([facility] subject to change). However, if pt goes to an Outpatient IV Infusion Center ( Infusion Center) she will have no copay. CM to discuss with pt once we hear back from [facility] & [facility]. Pt also interested in assistance with Colostomy supplies; CM to discuss with barge captain tomorrow. CM will follow. Dc plan-TBD Date Signed: 06/27/2017 04:43 PM Electronically Signed By:Moraima Richmond RN [facility] CM Progress Note CM Note CM Note Notes: Spoke with PATROL COMMANDER & RN; confirmed pt will need SNF at time of dc. Met with pt to discuss. Pt decided she does not want to go to [facility]. [facility] is now her first choice; also interested in [facility]. Referrals sent. [facility] & [facility] willing to accept pt. Spoke with Qiana at [facility] regarding IV Invanz; Qiana to confirm [facility] can take pt while she is on IV Invanz; awaiting callback. [facility] unable to except pt because of cost of IV Invanz. CM will follow. Date Signed: 06/28/2017 02:44 PM Electronically Signed By:Moraima Richmond RN [facility] Progress Note CM Note CM Note Notes: Received phone call from Qiana, at [facility]; willing to except pt. Updates faxed. Qiana will be onsite tomorrow to talk to pt. Pt, pt's daughter, MD & RN updated. CM will continue to follow. Dc plan-[facility] Date Signed: 06/28/2017 04:35 PM Electronically Signed By:Moraima Richmond RN Case Management Discharge Plan Note Case Management Discharge Discharge Order Complete? Answers: Yes Patient to Obtain Answers: via Family Medications Transportation Arranged Answers: Other Notes: [place] clam pick[employer] - transport covered by [facility] Transport will Pick (Date 06/29/2017 01:30 PM & Time) PERI Complete Answers: No Case Management Transport Answers: No Form Complete Faxed Final Orders Answers: Yes Agency/Facility Transfer Answers: Yes Report Printed & Faxed to Receiving Agency Family Notified Answers: No Discharge Comments Notes: IMANI spoke w/ CAMRYN Dee and ELHAM Conti regarding d/c POC. Pt is being discharged today to [facility]. Qiana from [facility] will stop by to answer some questions that pt has. CM received a call from [facility] (P# [phone] option 1) regarding pts ostomy supplies. Pt will receive her supplies once she is discharged from SNF and back at home. CM provided ELHAM Conti w/ phone number to give report. DC orders sent to [facility]. CM available for changes. Plan: [facility] Date Signed: 06/29/2017 12:35 PM Electronically Signed By:DIMITRIOS Bae Intervention Information Intervention Type:*IM-Signed Date of Service:06/29/2017 02:27 PM Patient Type:Inpatient Staff Member:Megan Pan Hours: Discipline: Severity: Comment:
== END 2017-06-29 14:15 | DRG 853 ==
LOC: EDBD → EDUNIT# → F2N 19:39 → F3E 06-24 17:48
PROVIDERS: ADMIT Surgery; ATTEND Surgery
PROC: 0DTG0ZZ Resection of Left Large Intestine, Open Approach (ICD-10-PCS; principal; 2017-06-20 14:45)
PROC: 02HV3DZ Insertion of Intraluminal Device into Superior Vena Cava, Percutaneous Approach (ICD-10-PCS; 2017-06-21)
PROC: 02HV33Z Insertion of Infusion Device into Superior Vena Cava, Percutaneous Approach (ICD-10-PCS; 2017-06-25)
DX: A41.51 Sepsis due to Escherichia coli [E. coli] (principal); R65.21 Severe sepsis with septic shock; K57.20 Diverticulitis of large intestine with perforation and abscess without bleeding; K62.6 Ulcer of anus and rectum; D62 Acute posthemorrhagic anemia; I16.0 Hypertensive urgency; N17.9 Acute kidney failure, unspecified; E87.6 Hypokalemia; E03.9 Hypothyroidism, unspecified; E78.5 Hyperlipidemia, unspecified; E66.9 Obesity, unspecified; Z68.35 Body mass index [BMI] 35.0-35.9, adult; Z96.653 Presence of artificial knee joint, bilateral; Z96.641 Presence of right artificial hip joint
CPT/HCPCS: 96365; 97116-GP; 97162-GP; 97166-GO; 97530-GO; 97530-GP; 97535-GO; C1751; G8978-GP-CK; G8979-GP-CI; G8987-GO-CL; G8988-GO-CJ; J0360; J1170; J1335; J1450; J1650; J1940; J2001; J2185; J2248; J2270; J2405; J2704; J2765; J3010; J3480; P9041; P9047; Q9967

== ENCOUNTER → 2017-07-09 | Outpatient (CLI) | payer OTHER ==
[~2017-07-09] MED LIST changes: +IOPAMIDOL (ISOVUE-300) 100 ML BTL ONE; -ROPIVACAINE 0.2% 80 MG, EPINEPHrine 0.2 MG, KETOROLAC TROMETHAMINE 30 MG in SYRINGE 0 ML IU ONE
== END ==
LOC: FIMAGING 12:07
PROVIDERS: ATTEND Internal Medicine Infectious Disease
DX: K65.9 Peritonitis, unspecified (principal); K52.9 Noninfective gastroenteritis and colitis, unspecified; K82.8 Other specified diseases of gallbladder
CPT/HCPCS: 74177; Q9967

== ENCOUNTER → 2017-10-15 | Outpatient (CLI) | payer OTHER | LOC: FIMAGING 10:05 | PROVIDERS: ATTEND Internal Medicine | DX: Z12.31 Encounter for screening mammogram for malignant neoplasm of breast (principal) ==

== ENCOUNTER → 2018-01-05 | Outpatient (CLI) | payer OTHER | LOC: FIMAGING 10:08 | PROVIDERS: ATTEND Internal Medicine | DX: Z13.820 Encounter for screening for osteoporosis (principal) ==

== ENCOUNTER 2018-02-17 13:36 | Inpatient (IN) | payer OTHER ==
[2018-02-17] MEDS ORDERED: ERTAPENEM 1 GM in NS 100 ML IV ONE (13:44)
[2018-02-17] MEDS ORDERED: LR 1,000 ML IV ONE (13:45)
[2018-02-17] MEDS ORDERED: BUPIVACAINE/EPI 0.5% 30 ML SDV ONE (14:29)
--- NOTE | 2018-02-17 14:32 | PDHPUP ---
History & Physical Update H&P update statement: This history and physical update is based on an assessment of the patient which was completed after admission or registration (within 24 hours), but prior to the surgery/procedure. H&P update: H&P reviewed & patient examined, no change in patient's condition since H&P completed
[2018-02-17] MEDS ORDERED: MIDAZOLAM 2 MG/2 ML VIAL ONE ×2 (14:44→15:05)
[2018-02-17] MEDS ORDERED: MIDAZOLAM 2 MG/2 ML VIAL IVP ONE (14:50)
--- NOTE | 2018-02-17 14:51 | PDANEPAE ---
ANE Past Medical History - Cardiovascular History Hx Hypertension: Yes Hx Arrhythmias: No Hx Chest Pain: No Hx Coronary Artery / Peripheral Vascular Disease: No Hx CHF / Valvular Disease: No Hx Palpitations: No - Pulmonary History Hx COPD: No Hx Asthma/Reactive Airway Disease: No Hx Recent Upper Respiratory Infection: No Hx Oxygen in Use at Home: No Hx Sleep Apnea: No Sleep Apnea Screening Result - Last Documented: Positive Pulmonary History Comment: used nebulizer post-op 06/26 - Neurologic History Hx Cerebrovascular Accident: No Hx Seizures: No Hx Dementia: No - Endocrine History Hx Diabetes: No Endocrine History Comment: HYPOTHYROID - Renal History Hx Renal Disorders: No - Liver History Hx Hepatic Disorders: No - Neurological & Psychiatric Hx Hx Neurological and Psychiatric Disorders: No - Cancer History Hx Cancer: Yes Cancer History Comment: SKIN - Congenital Disorder History Hx Congenital Disorders: No - GI History Hx Gastrointestinal Disorders: Yes Gastrointestinal History Comment: CONSTIPATION. tortuous colon per colonoscopies - Other Health History Other Health History: OSTEOARTHRITIS - Chronic Pain History Chronic Pain: No - Surgical History Prior Surgeries: RT TOTAL KNEE 08/04/2015. RT TOTAL HIP. TONSILLECTOMY. REMVL LIPOMA. BREAST BX. ulcerated colon perf 06/26 ANE Review of Systems Review of Systems: - Exercise capacity METS (RN): 4 METS ANE Patient History - Allergies Allergies/Adverse Reactions: codeine Allergy (Unknown, Verified 06/20/17 11:26) VOMITTING amoxicillin Allergy (Verified 06/20/17 11:26) FACIAL SWELLING, BODY RASH morphine Allergy (Verified 02/17/18 14:05) hallucinations Penicillins Allergy (Verified 06/20/17 11:26) Swelling/neck,face,throat - Home Medications Home Medications: Hydrochlorothiazide [HCTZ (*)] 25 mg PO DAILY 07/13/15 [Last Taken 02/16/18] Lisinopril [Zestril 10 mg (*)] 10 mg PO DAILY 07/13/15 [Last Taken 02/16/18] Levothyroxine Sodium 75 mcg PO MOTUWETHFRSA 06/20/17 [Last Taken 02/17/18 05:30] Levothyroxine Sodium 112.5 mcg PO FARMER 06/20/17 [Last Taken 02/14/18] Ondansetron Odt [Zofran Odt 4 mg (*)] 4 mg PO Q6H PRN 06/20/17 [Last Taken 02/17 05:30] - NPO status NPO Since - Liquids (Date): 02/17/18 NPO Since - Liquids (Time): 12:00 NPO Since - Solids (Date): 02/16/18 NPO Since - Solids (Time): 15:00 - Smoking Hx Smoking Status: Never smoked - Family Anes Hx Family Hx Anesthesia Complications: none ANE Labs/Vital Signs - Vital Signs Blood Pressure: 134/76 Heart Rate: 70 Respiratory Rate: 18 O2 Sat (%): 99 Height: 157.48 cm Weight: 86.183 kg ANE Physical Exam - Airway Neck exam: FROM Mallampati Score: Class 2 Mouth exam: normal dental/mouth exam - Pulmonary Pulmonary: no respiratory distress - Cardiovascular Cardiovascular: regular rate and rhythym - ASA Status ASA Status: II ANE Anesthesia Plan Anesthesia Plan: general endotracheal anesthesia
[2018-02-17] MEDS ORDERED: morphINE PF 5 MG/10 ML INJ ONE (14:52)
[2018-02-17] MEDS ORDERED: fentaNYL 100 MCG/2 ML INJ ONE (14:52)
[2018-02-17] MEDS ORDERED: ROCURONIUM 100 MG/10 ML VIAL ONE (14:53)
[2018-02-17] MEDS ORDERED: METOCLOPRAMIDE 10 MG/2 ML VIAL ONE (14:53)
[2018-02-17] MEDS ORDERED: LIDOCAINE 2% 100 MG/5 ML SYR ONE (14:53)
[2018-02-17] MEDS ORDERED: DEXAMETHASONE 4 MG/ML VIAL ONE ×2 (14:53)
[2018-02-17] MEDS ORDERED: PROPOFOL/EMULSION 500 MG/50 ML BOTTLE IV ONE ×4 (14:53→17:32)
[2018-02-17] MEDS ORDERED: ACETAMINOPHEN 500 MG TAB PO PRN (16:21)
[2018-02-17] MEDS ORDERED: ONDANSETRON 4 MG/2 ML VIAL IVP PRN ×3 (16:21→18:28)
[2018-02-17] MEDS ORDERED: MEPERIDINE 25 MG/0.5 ML AMP IVP PRN ×2 (16:21→18:28)
[2018-02-17] MEDS ORDERED: ALBUTEROL 3 ML DEYVIAL IH PRN ×2 (16:21→18:28)
[2018-02-17] MEDS ORDERED: METOCLOPRAMIDE 10 MG/2 ML VIAL IVP PRN (16:21)
[2018-02-17] MEDS ORDERED: fentaNYL 100 MCG/2 ML INJ IVP PRN ×2 (16:21→18:28)
[2018-02-17] MEDS ORDERED: NALOXONE HCL 0.4 MG/ML INJ IVP PRN ×3 (16:21→18:28)
[2018-02-17] MEDS ORDERED: SUGAMMADEX SODIUM 200 MG/2 ML VIAL IVP ONE (16:54)
--- NOTE | 2018-02-17 18:15 | POSTOPPROG ---
Post Op Note Date of Operation: 02/17/18 Surgeon: [facility] Analyst: Mile Medina MD, Demetrius Pruett PAC Anesthesiologist: Demetrius Greenberg Anesthesia: GET(General Endotracheal), Spinal Pre-op Diagnosis: diverticulosis/stercoral ulcer Post-op Diagnosis: ventral hernia, parastomal hernia Procedure: colostomy takedown, hernia repair Findings: large hernia, tension free anatomosis Inf/Abcess present in the surg proc area at time of surgery?: Yes Depth: Deep Incisional (Fascial) EBL: 100-500 Total fluids administered: 850 ml crystalloid Complications: none Drains: Justin Goyal Specimen(s): none
[2018-02-17] MEDS ORDERED: HYDROmorphONE/DILAUDID 1 MG/ML INJ IVP PRN (18:18)
[2018-02-17] MEDS ORDERED: PHENYLEPHRINE HCL 100 MCG/ML SYR IVP PRN (18:28)
[2018-02-17] MEDS ORDERED: PHENYLEPHRINE HCL 100 MCG/ML SYR ONE (18:34)
[2018-02-17] MEDS ORDERED: NS 500 ML IV ONE ×2 (18:44→19:30)
[2018-02-17] MEDS ORDERED: NS 1,000 ML IV ONE (20:30)
--- NOTE | 2018-02-18 04:59 | GOP ---
DATE OF OPERATION: SURGEON: Ehsan Bolivar MD BUSINESS CONTINUITY DIRECTOR: Steven Medina MD and Monika Pruett PA-C. ANESTHESIA: General endotracheal. ANESTHESIOLOGIST: Dr. Greenberg. PREOPERATIVE DIAGNOSIS: Diverticulitis/stercoral ulcer. POSTOPERATIVE DIAGNOSIS: Diverticulitis/stercoral ulcer. PROCEDURE PERFORMED: Colostomy take down. FINDINGS: SPECIMENS: None. ESTIMATED BLOOD LOSS: 150 cc. INDICATIONS: This 73-year-old patient presents with colostomy after perforated colon. DESCRIPTION OF PROCEDURE: The patient was brought into the operating room. After induction of endotracheal anesthesia in supine position her abdomen was prepped with Betadine scrub and prepped and draped sterilely. Her stoma appliance had been taken often and preoperative pursestring suture was used to control secretions from the ostomy. Initial optical trocar placement was done in the right upper quadrant. The abdomen was insufflated to 15 TOR with carbon dioxide. A working trocar was placed in the right lower quadrant under direct visualization. Adhesions were taken down from the anterior abdominal wall. It is found that she has a large parastomal and large incisional hernia, which would need to be repaired by an open technique. Therefore, the procedure was converted from laparoscopic to open andadhesiolysis was performed and the ostomy site is identified in the abdomen and the rectal stump is freed up from below. After insuring hemostasis, the bowel for retractor was placed. The ostomy was taken down from the anterior abdominal wall and reduced into the abdomen. Once it was determined to be of adequate length to reach the pelvis it is prepared for reanastomosis. The colostomy was removed with with a ANSELMO 75 still stapler. An end-to-side anastomosis was chosen, the side of the descending colon to the end of the rectum. A posterior layer of sutures was placed using PDS. The rectum and colon are then opened and an end-to-side anastomosis was done in a running fashion using 3-0 PDS. The rectum had been dilated with a 25 mm dilator with inspissated mucus removed. The anterior layer was then reapproximated and insured to be tension-free. Good blood supply and no signs of narrowing. The anastomosis complete, the abdomen was irrigated. Needle, instrument, and sponge counts were verified. Manjeet closure was performed with a separate setup. The rectus muscle, which was splayed apart is mobilized anteriorly, and the fascia is reapproximated for the ostomy site vertically before doing a running PDS closure of the anterior abdominal wall. The area then has Justin-Goyal drains placed on the left lateral side. The advancement flap is then sewn down using 3-0 Polysorb suture, and the skin is closed in layers using 3-0 Polysorb and staplers. Dressing was applied. Port sites were closed with jerilyn. The patient is awakened, extubated, taken to recovery room in stable condition. No immediate complications. FLUID GIVEN: 850 cc of crystalloid. PREOPERATIVE ANTIBIOTICS: Ancef. /[id number]/MODL MTDD
[2018-02-18] MEDS ORDERED: NS W/ 20 KCl/L 1,000 ML IV SCH (08:15)
--- NOTE | 2018-02-18 08:20 | SOAPPROG ---
SOAP Progress Note Assessment/Plan: Assessment/Plan: POD#1 s/p ostomy takedown and para and ventral hernia primary repair Intrathecal meds and prep caused post-op hypotension 4L resuscitation in PACU U/O >0.5cc/kg/hr H/H 12/36 OOB with assist RRR CTA Dressing dry/intact JPs 20 and 30 ml serosang No Edema Clear liq Transfer to floor IVF Keep torres for u/o monitoring Anticipate 3-5 day stay 02/18/18 08:17 Objective: Vital Signs Temp Pulse Resp BP Pulse Ox 37.6 C 73 17 118/61 92 02/18/18 04:00 02/18/18 04:00 02/18/18 04:17 02/18/18 04:00 02/18/18 04:17 Laboratory Results 02/18/18 05:25 02/18/18 05:25 02/17/18 02/18/18 02/19/18 05:59 05:59 05:59 Intake Total 4070 Output Total 600 Balance 3470 ICD10 Worksheet Patient Problems: Problems Problem Status Onset Acute kidney injury Acute Dehydration with hyponatremia Acute Osteoarthritis of left knee Acute Osteoarthritis of right knee Acute Perforation of sigmoid colon due to diverticulitis Acute Pneumoperitoneum Acute Primary osteoarthritis of right hip Acute
[2018-02-18] MEDS ORDERED: ENOXAPARIN 30 MG/0.3 ML SYR SC SCH (09:00)
--- NOTE | 2018-02-18 09:36 | ASMTCMCOM ---
CM Note CM Note Notes: Pt is a 73 y/o female admitted for an ostomy take down, para and ventral hernia primary repair. Pt does not have therapies at this time. Pt should most likely d/c independent when medically stable. CM available for d/c needs. Date Signed: 02/18/2018 09:35 AM Electronically Signed By:DIMITRIOS Bae
[2018-02-18] MEDS: ENOXAPARIN 40 MG/0.4 ML SYR SC SCH (10:25)
[2018-02-18] MEDS: traMADol 50 MG TAB PO PRN ×2 (14:10→20:20)
--- NOTE | 2018-02-18 14:19 | PDMN ---
Medical Necessity Medical necessity: Pt meets INPT criteria per MD as of 02/17/18 and MCG General Surgery GRG (colostomy take down; Medicare INPT only surgery).
[2018-02-18] MEDS: ONDANSETRON 4 MG/2 ML VIAL IVP PRN ×2 (17:00→21:50)
[2018-02-18] MEDS: LISINOPRIL 10 MG TAB PO SCH (20:21)
--- NOTE | 2018-02-18 21:12 | SOAPPROG ---
SOAP Progress Note Assessment/Plan: Assessment:slow progress. tx'd for SDU. pain mostly controlled. intermittent cramps. emesis x1 earlier. up in chair with family, smiling, comfortable. abd soft, dist, min approp tenderness. drains serosang. cont IVF/supportive care. ambulate as able. trial bentyl for cramps. all patient/family questions answered. Plan: 02/18/18 21:11 Objective: Vital Signs Temp Pulse Resp BP Pulse Ox 36.8 C 81 14 142/78 H 97 02/18/18 20:00 02/18/18 20:00 02/18/18 20:00 02/18/18 20:21 02/18/18 20:00 Laboratory Results 02/18/18 05:25 02/18/18 05:25 02/17/18 02/18/18 02/19/18 05:59 05:59 05:59 Intake Total 4070 790 Output Total 600 298 Balance 3470 538 ICD10 Worksheet Patient Problems: Problems Problem Status Onset Acute kidney injury Acute Dehydration with hyponatremia Acute Osteoarthritis of left knee Acute Osteoarthritis of right knee Acute Perforation of sigmoid colon due to diverticulitis Acute Pneumoperitoneum Acute Primary osteoarthritis of right hip Acute
[2018-02-18] MEDS: D5W 1/2 NS W/ 20 KCl/L 1,000 ML IV SCH (21:55)
[2018-02-18] MEDS: DICYCLOMINE 10 MG CAP PO PRN (22:00)
[2018-02-19] MEDS: LEVOTHYROXINE 75 MCG TAB PO SCH (07:41)
[2018-02-19] MEDS: D5W 1/2 NS W/ 20 KCl/L 1,000 ML IV SCH ×2 (07:43→17:00)
[2018-02-19] MEDS: ONDANSETRON 4 MG/2 ML VIAL IVP PRN ×3 (08:33→21:02)
--- NOTE | 2018-02-19 08:34 | SOAPPROG ---
SOAP Progress Note Assessment/Plan: Assessment/Plan: POD#2 emesis x1 5pm dry heaves 10 pm. Cramping helped by Bentyl. U/o not well assessed. Bladder scan this am. may need replacement of torres K3.9 Cr 0.98 (stable) H/H 12/08 as expected dilutional POD#1 s/p ostomy takedown and para and ventral hernia primary repair Intrathecal meds and prep caused post-op hypotension 4L resuscitation in PACU U/O >0.5cc/kg/hr H/H OOB with assist RRR CTA Dressing dry serosang JPs 20 and 30 ml serosang No Edema Clear liq/full liq Transfered to floor IVF ? Replace torres for u/o monitoring Anticipate 3-5 day stay 02/18/18 08:17 02/19/18 08:31 Objective: Vital Signs Temp Pulse Resp BP Pulse Ox 37.0 C 94 18 125/66 H 92 02/19/18 07:38 02/19/18 07:38 02/19/18 07:38 02/19/18 07:38 02/19/18 07:38 Laboratory Results 02/19/18 05:00 02/19/18 05:00 02/18/18 02/19/18 02/20/18 05:59 05:59 05:59 Intake Total 4070 1790 Output Total 600 348 Balance 3470 4792 ICD10 Worksheet Patient Problems: Problems Problem Status Onset Acute kidney injury Acute Dehydration with hyponatremia Acute Osteoarthritis of left knee Acute Osteoarthritis of right knee Acute Perforation of sigmoid colon due to diverticulitis Acute Pneumoperitoneum Acute Primary osteoarthritis of right hip Acute
[2018-02-19] MEDS: ENOXAPARIN 40 MG/0.4 ML SYR SC SCH (08:35)
[2018-02-19] MEDS: traMADol 50 MG TAB PO PRN ×3 (08:37→21:06)
[2018-02-19] MEDS: CHOLECALCIFEROL VIT D3 2,000 UNITS TAB/CAP PO SCH (08:38)
[2018-02-19] MEDS: HYDROCHLOROTHIAZIDE 25 MG TAB PO SCH (08:38)
[2018-02-19] MEDS: CALCIUM CARBONATE 500 MG TAB PO SCH (09:32)
[2018-02-19] MEDS: POTASSIUM CL 20 MEQ TAB PO SCH (09:32)
[2018-02-19] MEDS: DICYCLOMINE 10 MG CAP PO PRN ×3 (10:24→21:05)
--- NOTE | 2018-02-19 15:17 | ASMTCMCOM ---
CM Note CM Note Notes: Pt admitted for Ostomy take down and ventral hernia repair on 02/17. Pt is a and lives alone, though daughter is supportive. Pt sleeping when CM approached. No therapies ordered at this time. RN anticipates pt will discharge independently. Surgeon's note suggests D/C will not be before Thursday or Thursday. CM to follow. D/C Plan: Independent Date Signed: 02/19/2018 03:16 PM Electronically Signed By:Shyanne Strickland
[2018-02-19] MEDS: LISINOPRIL 10 MG TAB PO SCH (20:59)
[2018-02-20] MEDS: D5W 1/2 NS W/ 20 KCl/L 1,000 ML IV SCH ×2 (03:05→17:33)
[2018-02-20] MEDS: LEVOTHYROXINE 75 MCG TAB PO SCH (04:56)
[2018-02-20] MEDS: ONDANSETRON 4 MG/2 ML VIAL IVP PRN ×2 (08:20→18:15)
[2018-02-20] MEDS: ENOXAPARIN 40 MG/0.4 ML SYR SC SCH (08:34)
[2018-02-20] MEDS: CALCIUM CARBONATE 500 MG TAB PO SCH (08:38)
[2018-02-20] MEDS: CHOLECALCIFEROL VIT D3 2,000 UNITS TAB/CAP PO SCH (08:38)
[2018-02-20] MEDS: HYDROCHLOROTHIAZIDE 25 MG TAB PO SCH (08:39)
[2018-02-20] MEDS: traMADol 50 MG TAB PO PRN ×2 (08:44→19:42)
[2018-02-20] MEDS: DICYCLOMINE 10 MG CAP PO PRN ×3 (08:45→19:43)
[2018-02-20] MEDS: POTASSIUM CL 20 MEQ TAB PO SCH (10:56)
--- NOTE | 2018-02-20 16:52 | SOAPPROG ---
SOAP Progress Note Assessment/Plan: Assessment/Plan: POD#3 still no flatus u/o okay Jing clears cramps POD#2 emesis x1 5pm dry heaves 10 pm. Cramping helped by Maximilian. U/o not well assessed. Bladder scan this am. may need replacement of torres K3.9 Cr 0.98 (stable) H/H 12/08 as expected dilutional POD#1 s/p ostomy takedown and para and ventral hernia primary repair Intrathecal meds and prep caused post-op hypotension 4L resuscitation in PACU U/O >0.5cc/kg/hr H/H OOB with assist RRR CTA Dressing dry serosang JPs 20 and 30 ml serosang No Edema Doing well Encourage ambulation Clear liq/full liq Anticipate 3-5 day stay 02/18/18 08:17 02/19/18 08:31 02/20/18 16:51 Objective: Vital Signs Temp Pulse Resp BP Pulse Ox 36.8 C 78 16 153/95 H 92 02/20/18 15:49 02/20/18 15:49 02/20/18 11:38 02/20/18 15:49 02/20/18 15:49 Laboratory Results 02/20/18 05:05 02/20/18 05:05 02/19/18 02/20/18 02/21/18 05:59 05:59 05:59 Intake Total 1790 2735 600 Output Total 348 1125 580 Balance 1442 1610 20 ICD10 Worksheet Patient Problems: Problems Problem Status Onset Acute kidney injury Acute Dehydration with hyponatremia Acute Osteoarthritis of left knee Acute Osteoarthritis of right knee Acute Perforation of sigmoid colon due to diverticulitis Acute Pneumoperitoneum Acute Primary osteoarthritis of right hip Acute
[2018-02-20] MEDS: LISINOPRIL 10 MG TAB PO SCH (19:43)
[2018-02-21] MEDS ORDERED: LEVOTHYROXINE 75 MCG TAB PO SCH (04:00)
[2018-02-21] MEDS: D5W 1/2 NS W/ 20 KCl/L 1,000 ML IV SCH (04:03)
[2018-02-21] MEDS: LEVOTHYROXINE 75 MCG TAB PO SCH (04:04)
[2018-02-21] MEDS: POTASSIUM CL 20 MEQ TAB PO SCH (08:44)
[2018-02-21] MEDS: CHOLECALCIFEROL VIT D3 2,000 UNITS TAB/CAP PO SCH (08:44)
[2018-02-21] MEDS: HYDROCHLOROTHIAZIDE 25 MG TAB PO SCH (08:45)
[2018-02-21] MEDS: CALCIUM CARBONATE 500 MG TAB PO SCH (08:45)
[2018-02-21] MEDS: ENOXAPARIN 40 MG/0.4 ML SYR SC SCH (08:46)
[2018-02-21] MEDS: ONDANSETRON 4 MG/2 ML VIAL IVP PRN ×3 (08:46→21:07)
[2018-02-21] MEDS: traMADol 50 MG TAB PO PRN ×3 (09:10→21:12)
--- NOTE | 2018-02-21 10:29 | SOAPPROG ---
SOAP Progress Note Assessment/Plan: Assessment/Plan: POD# 4 Pass stool and flatus Less cramping OOB to chair Tolerating diet AVSS POD#3 still no flatus u/o okay Jing clears cramps POD#2 emesis x1 5pm dry heaves 10 pm. Cramping helped by Bentyl. U/o not well assessed. Bladder scan this am. may need replacement of torres K3.9 Cr 0.98 (stable) H/H 12/08 as expected dilutional POD#1 s/p ostomy takedown and para and ventral hernia primary repair Intrathecal meds and prep caused post-op hypotension 4L resuscitation in PACU U/O >0.5cc/kg/hr H/H OOB with assist RRR CTA Dressing dry serosang JPs 20 and 30 ml serosang No Edema A/P Doing well Encourage ambulation Diet as tolerated D/C JERALD Anticipate 2 more days Likely will need home care 02/18/18 08:17 02/19/18 08:31 02/20/18 16:51 02/21/18 10:28 Objective: Vital Signs Temp Pulse Resp BP Pulse Ox 36.8 C 79 18 156/88 H 90 L 02/21/18 07:56 02/21/18 07:56 02/21/18 07:56 02/21/18 08:45 02/21/18 07:56 Laboratory Results 02/20/18 05:05 02/20/18 05:05 02/20/18 02/21/18 02/22/18 05:59 05:59 05:59 Intake Total 2735 3434 200 Output Total 1125 855 400 Balance 1610 2579 -200 ICD10 Worksheet Patient Problems: Problems Problem Status Onset Acute kidney injury Acute Dehydration with hyponatremia Acute Osteoarthritis of left knee Acute Osteoarthritis of right knee Acute Perforation of sigmoid colon due to diverticulitis Acute Pneumoperitoneum Acute Primary osteoarthritis of right hip Acute
[2018-02-21] MEDS: LISINOPRIL 10 MG TAB PO SCH (21:07)
[2018-02-22] MEDS: LEVOTHYROXINE 75 MCG TAB PO SCH (06:37)
[2018-02-22] MEDS: CHOLECALCIFEROL VIT D3 2,000 UNITS TAB/CAP PO SCH (08:16)
[2018-02-22] MEDS: POTASSIUM CL 20 MEQ TAB PO SCH (08:17)
[2018-02-22] MEDS: CALCIUM CARBONATE 500 MG TAB PO SCH (08:17)
[2018-02-22] MEDS: HYDROCHLOROTHIAZIDE 25 MG TAB PO SCH (08:17)
[2018-02-22] MEDS: ENOXAPARIN 40 MG/0.4 ML SYR SC SCH (08:19)
[2018-02-22] MEDS: traMADol 50 MG TAB PO PRN ×2 (08:37→20:18)
[2018-02-22] MEDS: ONDANSETRON 4 MG/2 ML VIAL IVP PRN (08:37)
--- NOTE | 2018-02-22 11:29 | SOAPPROG ---
SOAP Progress Note Assessment/Plan: Assessment/Plan: POD#5 bowels functional stand by assist serous drainage from LLQ JERALD site wound erythematous at midpoint POD# 4 Pass stool and flatus Less cramping OOB to chair Tolerating diet AVSS POD#3 still no flatus u/o okay Jing clears cramps POD#2 emesis x1 5pm dry heaves 10 pm. Cramping helped by Bentyl. U/o not well assessed. Bladder scan this am. may need replacement of torres K3.9 Cr 0.98 (stable) H/H 30 as expected dilutional POD#1 s/p ostomy takedown and para and ventral hernia primary repair Intrathecal meds and prep caused post-op hypotension 4L resuscitation in PACU U/O >0.5cc/kg/hr H/H OOB with assist RRR CTA Dressing dry serosang JPs 20 and 30 ml serosang No Edema A/P Doing well Encourage ambulation Diet as tolerated Central jerilyn removed no purulence on wound probe Keep dressing on JERALD site Anticipate 1 more days Likely will need home care 02/18/18 08:17 02/19/18 08:31 02/20/18 16:51 02/21/18 10:28 02/22/18 11:27 Objective: Vital Signs Temp Pulse Resp BP Pulse Ox 36.6 C 78 16 138/72 H 94 02/22/18 08:07 02/22/18 08:07 02/22/18 08:07 02/22/18 08:17 02/22/18 08:07 Laboratory Results 02/20/18 05:05 02/20/18 05:05 02/21/18 02/22/18 02/23/18 05:59 05:59 05:59 Intake Total 3434 400 Output Total 855 1100 Balance 5839 -178 ICD10 Worksheet Patient Problems: Problems Problem Status Onset Acute kidney injury Acute Dehydration with hyponatremia Acute Osteoarthritis of left knee Acute Osteoarthritis of right knee Acute Perforation of sigmoid colon due to diverticulitis Acute Pneumoperitoneum Acute Primary osteoarthritis of right hip Acute
--- NOTE | 2018-02-22 12:26 | ASMTCMCOM ---
CM Note CM Note Notes: CM spoke with pt and daughter. recommending home with [facility]. Pt requested [facility], as she has been linked with them in the past. CM submit referral to [facility]. CM to follow if other d/c needs arise. Plan: Home with [facility]. Date Signed: 02/22/2018 12:26 PM Electronically Signed By:DIMITRIOS Guerrero
[2018-02-22] MEDS: ONDANSETRON DISINTEGRATING 4 MG TAB PO PRN (20:18)
[2018-02-22] MEDS: LISINOPRIL 10 MG TAB PO SCH (20:18)
[2018-02-23] MEDS: LEVOTHYROXINE 75 MCG TAB PO SCH (05:49)
[2018-02-23] MEDS: ENOXAPARIN 40 MG/0.4 ML SYR SC SCH (09:19)
[2018-02-23] MEDS: ONDANSETRON DISINTEGRATING 4 MG TAB PO PRN (09:19)
[2018-02-23] MEDS: POTASSIUM CL 20 MEQ TAB PO SCH (09:20)
[2018-02-23] MEDS: CHOLECALCIFEROL VIT D3 2,000 UNITS TAB/CAP PO SCH (09:22)
[2018-02-23] MEDS: traMADol 50 MG TAB PO PRN (09:22)
[2018-02-23] MEDS: HYDROCHLOROTHIAZIDE 25 MG TAB PO SCH (09:24)
[2018-02-23] MEDS: CALCIUM CARBONATE 500 MG TAB PO SCH (09:24)
--- NOTE | 2018-02-23 12:28 | PDIAF ---
- Diagnosis Diagnosis: Colostomy takedown (diverticulitis) Code Status: Full Code - Medication Management Nuclear Medicine Pet Ct Technologist Antibiotics: none Discharge Medications: electronically signed and located in the Home Medication List. - Orders Services needed: Home Shelter Care Face to Face: I certify that this patient was under my care and that I had the required [id number] encounter meeting the encounter requirements on the discharge day. My findings support the fact that the patient is homebound as defined in Home Care Face to Face Continued: CMS Chapter 7 Medicare Benefits Manual 30.1.1 , The condition of the patient is such that there exists a normal inability to leave home and consequently, leaving home would require a considerable and taxing effort. Isolation Type: Contact Isolation Diet Recommendation: no restrictions on diet Diet Texture: Regular Texture Diet Wound Care Instructions: May shower. DSD for oozing from any incision otherwise open to air Sutures/[place] Site: will remove jerilyn at f/u appt Additional Instructions: No lifting > 25 lbs for 2 weeks Call with wound concerns May shower - Follow Up Care Current Providers and Referrals: Geovanna Keys MD [Primary Care Provider] - Ehsan Bolivar MD [Medical Doctor] - follow up in 1 week (as scheduled)
[2018-02-23 12:30] VITALS: BP 147/74
--- NOTE | 2018-02-23 12:36 | ASDISCHSUM ---
Discharge Information Plan Status:Home with Home Health Medically Cleared to Leave: Discharge Date: D/C Disposition:Home Health Service [facility] D/C Disposition:Home Health Service Projected Discharge Date:02/23/2018 11:00 AM Transportation at D/C:Family Discharge Delay Reason: Follow-Up Date:02/23/2018 11:00 AM Discharge Slot: Final Diagnosis: Placement Information Referral Type:*Home Health Care Services Referral ID:[id number] Provider Name:[facility] Address 1:[address] Address 2: City:[place] Selection Factors: State:[place] Patient Contact Information Contact Name:PRO Relationship:Daughter Address: City: [facility] Phone: [facility] Code: Email: Financial Information Financial Class:Medicare Primary Plan Desc:MEDICARE INPATIENT Primary Plan Number:[id number] Secondary Plan Desc:GILMAR RODRIGUEZ PPO Secondary Plan Number:[id number] Assessment Information LACE LACE Length of stay for Answers: 4-6 days current admission Acuity / Level of Answers: Yes Care: Did the patient have an inpatient admission? Comorbidities - select Answers: Other Notes: HTN; Hypothyroid all that apply # of Emergency department Answers: 0 visits in the last 6 months Score: 8 Date Signed: 02/23/2018 12:35 PM Electronically Signed By:DIMITRIOS Guerrero [facility] CM Progress Note CM Note CM Note Notes: Pt is a 73 y/o female admitted for an ostomy take down, para and ventral hernia primary repair. Pt does not have therapies at this time. Pt should most likely d/c independent when medically stable. CM available for d/c needs. Date Signed: 02/18/2018 09:35 AM Electronically Signed By:DIMITRIOS Bea [facility] CM Progress Note CM Note CM Note Notes: Pt admitted for Ostomy take down and ventral hernia repair on 02/17. Pt is a and lives alone, though daughter is supportive. Pt sleeping when CM approached. No therapies ordered at this time. RN anticipates pt will discharge independently. Surgeon's note suggests D/C will not be before Thursday or Thursday. CM to follow. D/C Plan: Independent Date Signed: 02/19/2018 03:16 PM Electronically Signed By:Shyanne Strickland [facility] CM Progress Note CM Note CM Note Notes: CM spoke with pt and daughter. recommending home with [facility]. Pt requested [facility], as she has been linked with them in the past. CM submit referral to [facility]. CM to follow if other d/c needs arise. Plan: Home with [facility]. Date Signed: 02/22/2018 12:26 PM Electronically Signed By:DIMITRIOS Guerrero Case Management Discharge Plan Note Case Management Discharge Discharge Order Complete? Answers: Yes Patient to Obtain Answers: via Family Medications Transportation Arranged Answers: Family/Friends Faxed Final Orders Answers: Yes Agency/Facility Transfer Answers: Yes Report Printed & Faxed to Receiving Agency Family Notified Answers: Yes Discharge Comments Notes: Pt being discharged with [facility] home health and support from family. Family to transport. No other needs identified at this time. Date Signed: 02/23/2018 12:34 PM Electronically Signed By:DIMITRIOS Guerrero Intervention Information
== END 2018-02-23 16:15 | disposition home health service (06) | DRG 331 ==
LOC: FSGY 13:36 → F3N 18:16 → F3E 19:15 → F2N 22:25 → F1N 02-18 17:18
PROVIDERS: ADMIT Surgery; ATTEND Surgery
PROC: 0WQF0ZZ Repair Abdominal Wall, Open Approach (ICD-10-PCS; principal; 2018-02-17 15:00)
PROC: 0DBE0ZZ Excision of Large Intestine, Open Approach (ICD-10-PCS; principal; 2018-02-17 15:00)
DX: Z43.3 Encounter for attention to colostomy (principal); Z53.31 Laparoscopic surgical procedure converted to open procedure; K43.5 Parastomal hernia without obstruction or gangrene; K43.2 Incisional hernia without obstruction or gangrene; I10 Essential (primary) hypertension; G47.30 Sleep apnea, unspecified; E03.9 Hypothyroidism, unspecified; K59.00 Constipation, unspecified; Z96.641 Presence of right artificial hip joint; Z96.651 Presence of right artificial knee joint
CPT/HCPCS: J1100; J1335; J1650; J2001; J2250; J2274; J2370; J2405; J2704; J2765; J3010